=== PATIENT | female | born 1955 | race Caucasian/White ===

== ENCOUNTER 2019-11-15 22:51 | Inpatient (IN) | payer MEDICARE, BC ==
[2019-11-15] MEDS ORDERED: IPRATROPIUM-ALBUTEROL 3 ML NEB INHALATION STA (23:13)
[2019-11-15 23:24] LABS: Anisocytosis Slight; HCT 33.3 % (34.0-46.0); HGB 10.4 gm/dL (11.4-16.0); Hypochromasia Marked; MCH 38.8 pg (25.0-35.0); MCHC 31.1 g/dL (31.0-37.0); MCV 124.7 fL (80.0-100.0); Macrocytosis Marked; Platelet Count 135 k/uL (150-450); RBC 2.67 m/uL (3.80-5.40); RDW 19.9 % (11.5-15.5); WBC 3.4 k/uL (3.8-10.6)
[2019-11-15 23:33] LABS: ALT 14 U/L (4-34); AST 52 U/L (14-36); African American GFR (CKD) >90 (>60 ml/min/1.73 sqM); Albumin 3.5 g/dL (3.5-5.0); Alkaline Phosphatase 159 U/L (38-126); Anion Gap 8 mmol/L; Blood Urea Nitrogen 7 mg/dL (7-17); Calcium 8.9 mg/dL (8.4-10.2); Carbon Dioxide 25 mmol/L (22-30); Chloride 101 mmol/L (98-107); Glucose 146 mg/dL (74-99); Non-African American GFR(CKD) >90 (>60 ml/min/1.73 sqM); Potassium 3.8 mmol/L (3.5-5.1); Sodium 134 mmol/L (137-145); Total Bilirubin 4.6 mg/dL (0.2-1.3); Total Protein 7.5 g/dL (6.3-8.2)
[2019-11-15 23:34] LABS: INR 1.5 (<1.2); Partial Thromboplastin Time 30.1 sec (22.0-30.0)
--- NOTE | 2019-11-15 23:35 | XR ---
EXAMINATION TYPE: XR chest 2V DATE OF EXAM: 11/15/2019 COMPARISON: NONE HISTORY: Difficulty breathing TECHNIQUE: 2 views FINDINGS: There is complete opacification right hemithorax. Left lung is fairly clear. There is no he art failure. Trachea is midline. There is slight blunting left costophrenic angle. IMPRESSION: Right-sided hydrothorax. Small left pleural effusion. No heart failure seen.
[2019-11-15 23:38] LABS: D-Dimer 1.79 mg/L FEU (<0.60)
[2019-11-15 23:47] LABS: Band Neutrophils % 4 %; Eosinophils # (M) 0.07 k/uL (0-0.7); Lymphocytes # (M) 1.09 k/uL (1.0-4.8); Metamyelocytes % 3 %; Neutrophils % (M) 56 %; Nucleated Red Blood Cells 0 /100 WBC (0-0); Total Cells Counted 200
--- NOTE | 2019-11-16 00:22 | ED ---
SOB HPI - General Source: patient, EMS Mode of arrival: EMS Limitations: physical limitation <Bushra Azul - Last Filed: 11/16/19 02:29> <Kamilla Goddard - Last Filed: 11/17/19 04:52> - General Chief Complaint: Shortness of Breath Stated Complaint: PRINCESS Time Seen by Provider: 11/15/19 22:58 - History of Present Illness Initial Comments: 64 year-old female patient with past medical history significant for liver failure related to chronic alcohol abuse presents to the emergency department today for evaluation of shortness of breath. Patient states over the last 2 days she's had increase in shortness of breath. States it feels like she is not getting enough air. States she is also noticed increased swelling to the bilateral lower extremities and her abdomen. Patient states she generally does have ascites but her abdomen is bigger than usual. States she is having sharp stabbing pain to the left upper quadrant abdomen. Denies any pain in the chest. Denies cough or congestion. She denies any fever or chills with this. Patient states her last paracentesis was in 2014. She moved here from [place] 2 years ago. Does not currently follow with the primary care physician. She denies home O2. Denies history of COPD. States she quit smoking 5 years ago. Patient denies any recent rash, nausea, vomiting, diarrhea, constipation, back pain, numbness, tingling, dizziness, weakness, hematuria, dysuria, urinary urgency, urinary frequency, headache, visual changes, or any other complaints. (Bushra Azul) - Related Data Home Medications Medication Instructions Recorded Confirmed Ibuprofen [Advil] 200 mg PO DAILY PRN 11/16/19 11/16/19 traMADol HCL 50 mg PO HS PRN 11/16/19 11/16/19 Allergies Allergy/AdvReac Type Severity Reaction Status Date / Time No Known Allergies Allergy Verified 11/16/19 11:18 Review of Systems ROS Other: All systems not noted in ROS Statement are negative. <Bushra Azul - Last Filed: 11/16/19 02:29> ROS Other: All systems not noted in ROS Statement are negative. <Kamilla Goddard - Last Filed: 11/17/19 04:52> ROS Statement: Those systems with pertinent positive or pertinent negative responses have been documented in the HPI. Past Medical History Additional Past Medical History / Comment(s): cirrhosis of the liver 2014 History of Any Multi-Drug Resistant Organisms: None Reported Past Surgical History: Orthopedic Surgery Additional Past Surgical History / Comment(s): 2020 fx hip/femur Past Psychological History: No Psychological Hx Reported Smoking Status: Former smoker Past Alcohol Use History: Occasional Past Drug Use History: Marijuana <Bushra Azul M - Last Filed: 11/16/19 02:29> General Exam Limitations: physical limitation General appearance: alert, other (this is a well-developed, well-nourished adult female patient in mild respiratory distress. Vital signs upon presentation are temperature 98.5F, pulse 107, respirations 24, blood pressure 159/99, pulse ox 97% on room air.) Eye exam: Present: PERRL, EOMI, scleral icterus. Absent: conjunctival injection, periorbital swelling Respiratory exam: Present: respiratory distress (Mild), wheezes (The x-ray wheezing noted in the left posterior lung jimenez), accessory muscle use (Abdominal), decreased breath sounds (Right posterior lung field), other (Tachypnea). Absent: normal lung sounds bilaterally, rales, rhonchi, stridor Cardiovascular Exam: Present: normal rhythm, tachycardia, normal heart sounds. Absent: systolic murmur, diastolic murmur, rubs, gallop, clicks GI/Abdominal exam: Present: soft, distended (Ascitic abdomen), normal bowel sounds. Absent: tenderness, guarding, rebound, rigid Neurological exam: Present: alert, oriented X3, CN II-XII intact Psychiatric exam: Present: normal affect, normal mood Skin exam: Present: warm, dry, intact. Absent: normal color (Jaundice), rash <Bushra Azul M - Last Filed: 11/16/19 02:29> Course Vital Signs 11/15/19 11/15/19 11/15/19 22:53 22:58 23:00 Temperature 98.5 F Pulse Rate 107 H 108 H 109 H Pulse Rate [ Pulse Oximetery ] Respiratory 24 22 22 Rate Blood Pressure 159/99 159/99 159/99 O2 Sat by Pulse 97 97 97 Oximetry 11/15/19 11/15/19 11/15/19 23:30 23:32 23:36 Temperature Pulse Rate 106 H 110 H 104 H Pulse Rate [ Pulse Oximetery ] Respiratory 22 Rate Blood Pressure 158/82 O2 Sat by Pulse 95 Oximetry 11/16/19 11/16/19 11/16/19 00:00 00:30 01:00 Temperature Pulse Rate 110 H 109 H 111 H Pulse Rate [ Pulse Oximetery ] Respiratory 22 22 22 Rate Blood Pressure 144/117 152/81 165/57 O2 Sat by Pulse 95 95 95 Oximetry 11/16/19 02:00 Temperature Pulse Rate Pulse Rate [ 111 H Pulse Oximetery ] Respiratory 26 H Rate Blood Pressure O2 Sat by Pulse Oximetry Medical Decision Making - Lab Data Result diagrams: 11/15/19 23:12 11/15/19 23:12 - EKG Data -: EKG Interpreted by Me - Radiology Data Radiology results: report reviewed, image reviewed <Bushra Azul - Last Filed: 11/16/19 02:29> - Lab Data Result diagrams: 11/15/19 23:12 11/15/19 23:12 <Kamilla Goddard - Last Filed: 11/17/19 04:52> - Medical Decision Making 64 year-old patient with alcoholic liver failure last drink 3 months ago, presents to the emergency department for evaluation of shortness of breath for the last 2-3 days. Has cough congestion. Denies fever or chills. Physical examination did reveal diminished lung sounds on the right side, faint expiratory wheezing on the left. Abdomen was acidic and distended. No abdominal tenderness was noted. Did have lower extremity edema. Labs reviewed and did reveal White blood count account 3.4, hemoglobin 10.4, PT 15, INR 1.5, ETT 30.1, d-dimer 1.79, bilirubin 4.6, AST 52, alk phos 159. Negative troponin. BNP 540. Chest x-ray did reveal hydrothorax on the right side with complete opacification of the right lung. CT angiography of the chest was ordered as well as CT abdomen and pelvis. No pulmonary embolism was identified. Redemonstrated right hydrothorax with no pulmonary mass. CT abdomen and pelvis does reveal ascites. Also, multiple gallstones and dilated gallbladder consistent with cholecystitis. Patient has no RUQ pain or tenderness, no elevated wbc count, no fever. Cholecysitis is unlikely, but we will consult surgery for further evaluation. I did inform patient of the results. We will give a dose of lasix to try and make the patient more comfortable. IR was consulted for thoracentesis and paracentesis. Patient is agreeable with this plan. (Bushra Azul) Patient care was discussed with mid-level provider for [facility] who accepts the patient to their service further management of ascites and pleural effusion. Interventional radiology was consulted for thoracentesis and paracentesis. CT was read as possible tension however given the insidious onset and patient's stable vital signs I do not feel that she has any component of tension. (Kamilla Goddard) - Lab Data Lab Results 11/15/19 11/15/19 11/15/19 Range/Units 23:12 23:12 23:12 WBC 3.4 L (3.8-10.6) k/uL RBC 2.67 L (3.80-5.40) m/uL Hgb 10.4 L (11.4-16.0) gm/dL Hct 33.3 L (34.0-46.0) % MCV 124.7 H (80.0-100.0) fL MCH 38.8 H (25.0-35.0) pg MCHC 31.1 (31.0-37.0) g/dL RDW 19.9 H (11.5-15.5) % Plt Count 135 L (150-450) k/uL Neutrophils % (Manual) 56 % Band Neutrophils % 4 % Lymphocytes % (Manual) 32 % Monocytes % (Manual) 3 % Eosinophils % (Manual) 2 % Metamyelocytes % 3 % Neutrophils # (Manual) 2.00 (1.3-7.7) k/uL Lymphocytes # (Manual) 1.09 (1.0-4.8) k/uL Monocytes # (Manual) 0.10 (0-1.0) k/uL Eosinophils # (Manual) 0.07 (0-0.7) k/uL Metamyelocytes # (Man) 0.10 H (0) k/uL Nucleated RBCs 0 (0-0) /100 WBC Manual Slide Review Performed Hypochromasia Marked Anisocytosis Slight Macrocytosis Marked A PT 15.0 H (9.0-12.0) sec INR 1.5 H (<1.2) APTT 30.1 H (22.0-30.0) sec D-Dimer 1.79 H (<0.60) mg/L FEU Sodium 134 L (137-145) mmol/L Potassium 3.8 (3.5-5.1) mmol/L Chloride 101 (98-107) mmol/L Carbon Dioxide 25 (22-30) mmol/L Anion Gap 8 mmol/L BUN 7 (7-17) mg/dL Creatinine 0.47 L (0.52-1.04) mg/dL Est GFR (CKD-EPI)AfAm >90 (>60 ml/min/1.73 sqM) Est GFR (CKD-EPI)NonAf >90 (>60 ml/min/1.73 sqM) Glucose 146 H (74-99) mg/dL Plasma Lactic Acid Patrice (0.7-2.0) mmol/L Calcium 8.9 (8.4-10.2) mg/dL Total Bilirubin 4.6 H (0.2-1.3) mg/dL AST 52 H (14-36) U/L ALT 14 (4-34) U/L Alkaline Phosphatase 159 H (38-126) U/L Troponin I (0.000-0.034) ng/mL NT-Pro-B Natriuret Pep pg/mL Total Protein 7.5 (6.3-8.2) g/dL Albumin 3.5 (3.5-5.0) g/dL 11/15/19 11/15/19 11/15/19 Range/Units 23:12 23:12 23:12 WBC (3.8-10.6) k/uL RBC (3.80-5.40) m/uL Hgb (11.4-16.0) gm/dL Hct (34.0-46.0) % MCV (80.0-100.0) fL MCH (25.0-35.0) pg MCHC (31.0-37.0) g/dL RDW (11.5-15.5) % Plt Count (150-450) k/uL Neutrophils % (Manual) % Band Neutrophils % % Lymphocytes % (Manual) % Monocytes % (Manual) % Eosinophils % (Manual) % Metamyelocytes % % Neutrophils # (Manual) (1.3-7.7) k/uL Lymphocytes # (Manual) (1.0-4.8) k/uL Monocytes # (Manual) (0-1.0) k/uL Eosinophils # (Manual) (0-0.7) k/uL Metamyelocytes # (Man) (0) k/uL Nucleated RBCs (0-0) /100 WBC Manual Slide Review Hypochromasia Anisocytosis Macrocytosis PT (9.0-12.0) sec INR (<1.2) APTT (22.0-30.0) sec D-Dimer (<0.60) mg/L FEU Sodium (137-145) mmol/L Potassium (3.5-5.1) mmol/L Chloride (98-107) mmol/L Carbon Dioxide (22-30) mmol/L Anion Gap mmol/L BUN (7-17) mg/dL Creatinine (0.52-1.04) mg/dL Est GFR (CKD-EPI)AfAm (>60 ml/min/1.73 sqM) Est GFR (CKD-EPI)NonAf (>60 ml/min/1.73 sqM) Glucose (74-99) mg/dL Plasma Lactic Acid Patrice 2.0 (0.7-2.0) mmol/L Calcium (8.4-10.2) mg/dL Total Bilirubin (0.2-1.3) mg/dL AST (14-36) U/L ALT (4-34) U/L Alkaline Phosphatase (38-126) U/L Troponin I <0.012 (0.000-0.034) ng/mL NT-Pro-B Natriuret Pep 540 pg/mL Total Protein (6.3-8.2) g/dL Albumin (3.5-5.0) g/dL - EKG Data EKG Comments: EKG obtained at 2310 shows sinus tachycardia with a ventricular rate of 109, UT interval 160, QRS duration 106, QT 350, QTC 471. No evidence of ST elevation or depression. (Bushra Azul) - Radiology Data Two-view x-ray of the chest is obtained. Report was reviewed in its entirety. Impression by Dr. Castañeda shows right-sided hydrothorax. Small left pleural effusion. No heart failure seen. CT chest angiography for PE was obtained. Report was reviewed in its entirety. Impression by Dr. Castañeda shows no evidence of pulmonary embolism. There is right-sided hydrothorax with minimal tension. Shift of the heart is slightly to the left side. Complete atelectasis of the right lung. No pulmonary mass seen. Small left pleural effusion. Splenomegaly and cholelithiasis. CT abdomen and pelvis with contrast was obtained. Report is reviewed in its entirety. Impression by Dr. Castañeda shows right-sided hydrothorax. Moderate abdominal ascites. Sigmoid diverticulosis without diverticulitis. No pelvic mass seen. Uterine calcified fibroid. Splenomegaly. No dilated gallbladder with numerous gallstones suggestive of cholecystitis. (Bushra Azul) Disposition Decision to Admit Reason: Admit from EC Decision Date: 11/16/19 Decision Time: 01:22 <Bushra Azul - Last Filed: 11/16/19 02:29> <Kamilla Goddard - Last Filed: 11/17/19 04:52> Clinical Impression: Hydrothorax, Ascites, History of liver failure, Dyspnea Disposition: ADMITTED IP TO THIS [facility] Condition: Serious
--- NOTE | 2019-11-16 00:53 | CT ---
EXAMINATION TYPE: CT chest angio for PE DATE OF EXAM: 11/16/2019 COMPARISON: None HISTORY: Elevated D-dimer CT DLP: 518.10 mGycm Automated exposure control for dose reduction was used. CONTRAST: Performed with IV Contrast, patient injected with 100 mL of Isovue 370. There are 3-D post processed images. There is right-sided hydrothorax incomplete atelectasis of the right lung. The heart size is normal. There is no pericardial effusion. Heart shifted slightly to the left side. There is no pericardial ef fusion. Left lung is clear of consolidation. There is small left pleural effusion. I see no filling defects in the pulmonary arteries. The bony thorax is intact. There are multiple calcified gallstones. Spleen is enlarged and measures 16 cm. IMPRESSION: No evidence of pulmonary embolism. There is right-sided hydrothorax with minimal tension. Shift of th e heart slightly to the left side. Complete atelectasis of the right lung. No pulmonary mass seen. Sm all left pleural effusion. Splenomegaly and cholelithiasis.
--- NOTE | 2019-11-16 00:59 | CT ---
EXAMINATION TYPE: CT abdomen pelvis w con DATE OF EXAM: 11/16/2019 COMPARISON: None HISTORY: Elevated D-dimer CT DLP: 1659.10 mGycm Automated exposure control for dose reduction was used. CONTRAST: Performed with IV Contrast, patient injected with 100 mL of Isovue 370. Images obtained from the diaphragm to the floor the pelvis with IV contrast. There is right-sided hydrothorax. There is complete atelectasis right lung. There is moderate splenom egaly and the spleen measures 16 cm. There is no focal liver defect. There is numerous calcified gall stones. Gallbladder is dilated and measures 5.5 cm. There is abdominal ascites. There is no evidence of pancreatic mass. There is no adrenal mass. Kidneys show satisfactory contrast opacification. There is no hydronephrosi s. There is 4.5 cm cortical cyst lateral right kidney. Delayed images show normal renal excretion. Th ere is no retroperitoneal adenopathy. Abdominal aorta is atheromatous. There is umbilical hernia that contains fat and ascites fluid. There is 2 cm calcified uterine fundal fibroid. Bladder is intact. T here is no inguinal hernia. There is subcutaneous edema over the lower anterior abdomen. There is 10% compression of the superior endplate of L3 and L5. L3 fracture could be relatively acute. There is 5 % depression of superior endplate of L4. There is no evidence of a bowel obstruction. IMPRESSION: Right-sided hydrothorax. Moderate abdominal ascites. Sigmoid diverticulosis without diverticulitis. N o pelvic mass seen. Uterine calcified fibroid. Splenomegaly. Dilated gallbladder with numerous gallstones suggestive of cholecystitis.
[2019-11-16] MEDS ORDERED: NALOXONE 0.4 MG/ML 1 ML VIAL IV PRN (01:15)
[2019-11-16] MEDS ORDERED: FUROSEMIDE 10 MG/ML 4 ML VIAL IV STA (01:16)
[2019-11-16] MEDS ORDERED: IPRATROPIUM-ALBUTEROL 3 ML NEB INHALATION PRN (02:38)
[2019-11-16] MEDS: traMADol 50 MG TAB PO PRN ×2 (03:20→20:45)
--- NOTE | 2019-11-16 09:15 | P.CNPUL ---
History of Present Illness Consult date: 11/16/19 Reason for consult: dyspnea, pleural effusion History of present illness: 4-year-old female patient with known history of liver cirrhosis arrived from [place] in October 2019. The patient was expressing progressive worsening in shortness of breath and yesterday she came into the emergency department she had a complete white out of the right lung. This was consistent with a large right- sided pleural effusion. At The chest confirmed the finding and there was complete atelectasis of the right lung with massive amount of right-sided pleural effusion. The right-sided hydropneumothorax in addition to complete atelectasis of the right lung and there was moderate splenomegaly without any focal liver defect. There was numerous calcified gallstones. There was some minimal ascites also. No evidence of any pancreatic mass. Uterine fibroid was also seen. The patient is currently on oxygen at 4 L. She is a chronic smoker. She is also a chronic drinker and she has been trying to quit drinking. She has been an alcoholic for 30 years. She has made efforts to quit drinking, however she hasn't been absolutely successful and she is still drinks on and off right and she ultimately has not drank for around 3 months. She has chronic edema lower extremities. Does not take any form of diuretics. No history of encephalopathy. The patient has not several hepatitis. She has had a previous paracentesis back in 2014. Blood work shows some mild grade of pancytopenia, INR is at 1.5 and she has a normal renal function. Review of Systems Constitutional: Reports weight gain Eyes: denies as per HPI, denies blurred vision, denies bulging eye, denies decreased vision, denies diplopia, denies discharge, denies dry eye, denies irritation, denies itching, denies pain, denies photophobia, denies loss of peripheral vision, denies loss of vision, denies tunnel vision/blind spots Ears: deny: decreased hearing, ear discharge, earache, tinnitus Ears, nose, mouth and throat: Reports as per HPI Breasts: absent: as per HPI, change in shape, gynecomastia, masses, nipple discharge, pain, skin changes, swelling Cardiovascular: Reports decreased exercise tolerance, Reports dyspnea on exertion, Reports leg edema, Reports paroxysmal nocturnal dyspnea Respiratory: Reports dyspnea Gastrointestinal: Reports as per HPI Genitourinary: Reports as per HPI Menstruation: Reports as per HPI Musculoskeletal: Reports as per HPI Musculoskeletal: bilateral: ankle swelling, absent: ankle pain, ankle stiffness Integumentary: Reports as per HPI Neurological: Reports as per HPI Psychiatric: Reports as per HPI Endocrine: Reports as per HPI Hematologic/Lymphatic: Reports as per HPI Allergic/Immunologic: Reports as per HPI Past Medical History Additional Past Medical History / Comment(s): cirrhosis of the liver 2014 History of Any Multi-Drug Resistant Organisms: None Reported Past Surgical History: Orthopedic Surgery Additional Past Surgical History / Comment(s): 2019 fx hip/femur Past Anesthesia/Blood Transfusion Reactions: No Reported Reaction Past Psychological History: No Psychological Hx Reported Smoking Status: Former smoker Past Alcohol Use History: Occasional Additional Past Alcohol Use History / Comment(s): pt reported 4 glasses of wine a day. stopped drinking in 2014 but restarted in 2018. Last reported drink in august of 2019. Past Drug Use History: Marijuana - Past Family History Father Additional Family Medical History / Comment(s): pt stated her father had lymphoma. Medications and Allergies Home Medications Medication Instructions Recorded Confirmed Type traMADol HCL 50 mg PO Q6HR PRN 11/16/19 11/16/19 History Allergies Allergy/AdvReac Type Severity Reaction Status Date / Time No Known Allergies Allergy Verified 11/15/19 23:18 Physical Exam Vitals: Vital Signs Temp Pulse Pulse Resp BP BP BP 11/16/19 07:46 98.2 F 98 18 120/63 11/16/19 04:00 97.5 F L 119 H 22 139/67 11/16/19 02:56 120 H 11/16/19 02:51 118 H 11/16/19 02:27 98.3 F 111 H 26 H 163/85 11/16/19 02:00 111 H 26 H 11/16/19 01:00 111 H 22 165/57 11/16/19 00:30 109 H 22 152/81 11/16/19 00:00 110 H 22 144/117 11/15/19 23:36 104 H 11/15/19 23:32 110 H 11/15/19 23:30 106 H 22 158/82 11/15/19 23:00 109 H 22 159/99 11/15/19 22:58 108 H 22 159/99 11/15/19 22:53 98.5 F 107 H 24 159/99 Pulse Ox 11/16/19 07:46 98 11/16/19 04:00 93 L 11/16/19 02:56 11/16/19 02:51 11/16/19 02:27 93 L 11/16/19 02:00 11/16/19 01:00 95 11/16/19 00:30 95 11/16/19 00:00 95 11/15/19 23:36 11/15/19 23:32 11/15/19 23:30 95 11/15/19 23:00 97 11/15/19 22:58 97 11/15/19 22:53 97 Intake and Output 11/15/19 11/16/19 11/16/19 22:59 06:59 14:59 Output Total 2600 Balance -2600 Output: Urine 2600 Other: Voiding Method Indwelling Catheter Indwelling Catheter Weight 90.718 kg 54.9 kg Gen. appearance, comfortable not in acute distress on 4l by nasal cannula Head exam was generally normal. There was no scleral icterus or corneal arcus. Mucous membranes were moist. Neck was supple and without jugular venous distension, thyromegaly, or carotid bruits. Carotids were easily palpable bilaterally. There was no adenopathy. Lungs sounds are diminished in the right compared to the left and there is dullness to percussion. Cardiac exam revealed the PMI to be normally situated and sized. The rhythm was regular and no extrasystoles were noted during several minutes of auscultation. The first and second heart sounds were normal and physiologic splitting of the second heart sound was noted. There were no murmurs, rubs, clicks, or gallops. Abdomen slightly distended and the patient has an aside this with a fluid wave he had no significant tenderness. No rebound tenderness. No guarding. She has a umbilical hernia Extremities revealed +1 pitting edema. No cyanosis or clubbing. Neurologically awake and alert and is no focal neurological deficit or encephalopathy. Examination of the skin revealed no evidence of significant rashes, suspicious appearing nevi or other concerning lesions. Results - Laboratory Findings CBC and BMP: 11/15/19 23:12 11/15/19 23:12 PT/INR, D-dimer PT 15.0 sec (9.0-12.0) H 11/15/19 23:12 INR 1.5 (<1.2) H 11/15/19 23:12 D-Dimer 1.79 mg/L FEU (<0.60) H 11/15/19 23:12 Abnormal lab findings: Abnormal Labs 11/15/19 11/15/19 11/15/19 23:12 23:12 23:12 WBC 3.4 L RBC 2.67 L Hgb 10.4 L Hct 33.3 L MCV 124.7 H MCH 38.8 H RDW 19.9 H Plt Count 135 L Metamyelocytes # (Man) 0.10 H Macrocytosis Marked A PT 15.0 H INR 1.5 H APTT 30.1 H D-Dimer 1.79 H Sodium 134 L Creatinine 0.47 L Glucose 146 H Total Bilirubin 4.6 H AST 52 H Alkaline Phosphatase 159 H - Diagnostic Findings Chest x-ray: image reviewed CT scan - chest: image reviewed Assessment and Plan Plan: 1 complete atelectasis of the right lung secondary to a massive large right- sided pleural effusion, suspect hepatic hydrothorax 2 liver cirrhosis 3 small ascites 4 pancytopenia secondary to chronic liver disease 5 coagulopathy secondary to chronic liver disease 6 splenomegaly secondary to chronic liver disease 7 history of alcoholism 8 history of smoking 9 uncomplicated diverticulosis Plan We'll proceed with a therapeutic thoracentesis of the right lung. The patient has massive amount of pleural fluid for now. We'll try to drain at least a 3 L of fluid and we'll may need to repeat the thoracentesis. Unable to do more than 3 L as the patient may likely become symptomatic following the thoracentesis. Based on all this, would proceed with a thoracentesis for now I will put the patient on diuretics and we'll consult also with GI regarding her chronic liver disease. No signs of hepatic encephalopathy. The patient was started on Lasix 40 mg IV every 24 hours and Aldactone 25 mg by mouth daily. The fluid will be sent for analysis. Chest x-rays to follow. We'll continue to follow.
--- NOTE | 2019-11-16 09:20 | P.PCN ---
Date of Procedure: 11/16/19 Preoperative Diagnosis: Right sided hydrothorax Postoperative Diagnosis: Hepatic hydrothorax Procedure(s) Performed: Thoracentesis Anesthesia: local Surgeon: Margareth Ledesma Estimated Blood Loss (ml): 0 Pathology: other Condition: stable Disposition: floor Operative Findings: Consent was obtained from the patient prior to the procedure. Indications, risks, and benefits were explained at length. PROCEDURE SUMMARY: A time out was performed and the chest x-ray was reviewed, the appropriate side was confirmed and marked. My hands were washed immediately prior to the procedure. I wore a surgical cap, mask with protective eyewear, sterile gown and sterile gloves throughout the procedure. The patient was prepped and draped in a sterile manner using chlorhexidine scrub after the appropriate level was percussed and confirmed by ultrasound. 1% lidocaine was used to anesthesize the skin, subcutaneous tissue, superior aspect of the rib periosteum and parietal pleura. A finder needle was then introduced over the superior aspect of the rib to locate the pleural fluid; A 10-blade scalpel was used to lottie the skin at the insertion site. The [id number] needle was then introduced through the skin incision into the pleural space using negative aspiration pressure and the red colometric indicator to confirm appropriate positioning of the needle. The thoracentesis catheter was then threaded without difficulty. A total of 3.6 liters of turbid yellowish colored fluid was removed without difficulty. The catheter was then removed. No immediate complications were noted during the procedure. A post-procedure chest x-ray is pending at the time of this note. The fluid will be sent for studies. Estimated blood loss is 0cc
--- NOTE | 2019-11-16 09:47 | XR ---
EXAMINATION TYPE: XR chest 1V DATE OF EXAM: 11/16/2019 HISTORY: post thoracentesis. REFERENCE: Previous study dated 11/15/2019. FINDINGS: There is been a marked reduction in the amount of right-sided pleural fluid following thora centesis. No definite pneumothorax is seen. The left lung remains clear. Heart size is largely obscur ed. IMPRESSION: 1. SIGNIFICANT IMPROVEMENT IN THE AMOUNT OF RIGHT-SIDED PLEURAL FLUID. 2. I DO NOT SEE A POSTTHORACENTESIS COMPLICATION.
--- NOTE | 2019-11-16 10:48 | P.GSCN ---
History of Present Illness Consult date: 11/16/19 Reason for Consult: Cholelithiasis History of present illness: 64 row female with history of alcohol-induced liver failure. Presents complaini ng of shortness of breath. Says she was told she had liver problems 5 years ago. She had paracentesis done at that time. Stop drinking for approximate 4 years. Began drinking again about 1 year ago. No history of varices. Patient with evidence of leukopenia with white blood cell count 3.4, hemoglobin 10.4, INR 1.5. Bilirubin elevated at 4.6. Patient describes swelling in her lower extremities and her abdomen as well. Underwent thoracentesis today. She described in the ER stabbing pain left upper quadrant. Denies pain currently. CAT scan demonstrated gallstones. We were consulted for this reason. Denies right upper quadrant pain. Never had issues with her gallbladder before she states. Review of Systems The patient denies any acute changes in vision or hearing, no dysphagia or odynophagia, no chest pain, no dysuria or hematuria, no headache, no runny nose, no rectal bleeding or melena, no unexplained weight loss Past Medical History Additional Past Medical History / Comment(s): cirrhosis of the liver 2014 History of Any Multi-Drug Resistant Organisms: None Reported Past Surgical History: Orthopedic Surgery Additional Past Surgical History / Comment(s): 2019 fx hip/femur Past Anesthesia/Blood Transfusion Reactions: No Reported Reaction Past Psychological History: No Psychological Hx Reported Smoking Status: Former smoker Past Alcohol Use History: Occasional Additional Past Alcohol Use History / Comment(s): pt reported 4 glasses of wine a day. stopped drinking in 2014 but restarted in 2018. Last reported drink in august of 2019. Past Drug Use History: Marijuana - Past Family History Father Additional Family Medical History / Comment(s): pt stated her father had lymphoma. Medications and Allergies Home Medications Medication Instructions Recorded Confirmed Type traMADol HCL 50 mg PO Q6HR PRN 11/16/19 11/16/19 History Allergies Allergy/AdvReac Type Severity Reaction Status Date / Time No Known Allergies Allergy Verified 11/15/19 23:18 Surgical - Exam Vital Signs Temp Pulse Resp BP Pulse Ox 98.5 F 107 H 24 159/99 97 11/15/19 22:53 11/15/19 22:53 11/15/19 22:53 11/15/19 22:53 11/15/19 22:53 Physical exam: General: Well-developed, well-nourished HEENT: Normocephalic, sclerae icteric Abdomen: Nontender, mild distention Extremities: Mild edema Neuro: Alert and oriented Results - Labs 11/15/19 23:12 11/15/19 23:12 Abnormal Lab Results - Last 24 Hours (Table) 11/15/19 11/15/19 11/15/19 Range/Units 23:12 23:12 23:12 WBC 3.4 L (3.8-10.6) k/uL RBC 2.67 L (3.80-5.40) m/uL Hgb 10.4 L (11.4-16.0) gm/dL Hct 33.3 L (34.0-46.0) % MCV 124.7 H (80.0-100.0) fL MCH 38.8 H (25.0-35.0) pg RDW 19.9 H (11.5-15.5) % Plt Count 135 L (150-450) k/uL Metamyelocytes # (Man) 0.10 H (0) k/uL Macrocytosis Marked A PT 15.0 H (9.0-12.0) sec INR 1.5 H (<1.2) APTT 30.1 H (22.0-30.0) sec D-Dimer 1.79 H (<0.60) mg/L FEU Sodium 134 L (137-145) mmol/L Creatinine 0.47 L (0.52-1.04) mg/dL Glucose 146 H (74-99) mg/dL Total Bilirubin 4.6 H (0.2-1.3) mg/dL AST 52 H (14-36) U/L Alkaline Phosphatase 159 H (38-126) U/L Diabetes panel 11/15/19 Range/Units 23:12 Sodium 134 L (137-145) mmol/L Potassium 3.8 (3.5-5.1) mmol/L Chloride 101 (98-107) mmol/L Carbon Dioxide 25 (22-30) mmol/L BUN 7 (7-17) mg/dL Creatinine 0.47 L (0.52-1.04) mg/dL Glucose 146 H (74-99) mg/dL Calcium 8.9 (8.4-10.2) mg/dL AST 52 H (14-36) U/L ALT 14 (4-34) U/L Alkaline Phosphatase 159 H (38-126) U/L Total Protein 7.5 (6.3-8.2) g/dL Albumin 3.5 (3.5-5.0) g/dL Calcium panel 11/15/19 Range/Units 23:12 Calcium 8.9 (8.4-10.2) mg/dL Albumin 3.5 (3.5-5.0) g/dL Pituitary panel 11/15/19 Range/Units 23:12 Sodium 134 L (137-145) mmol/L Potassium 3.8 (3.5-5.1) mmol/L Chloride 101 (98-107) mmol/L Carbon Dioxide 25 (22-30) mmol/L BUN 7 (7-17) mg/dL Creatinine 0.47 L (0.52-1.04) mg/dL Glucose 146 H (74-99) mg/dL Calcium 8.9 (8.4-10.2) mg/dL Adrenal panel 11/15/19 Range/Units 23:12 Sodium 134 L (137-145) mmol/L Potassium 3.8 (3.5-5.1) mmol/L Chloride 101 (98-107) mmol/L Carbon Dioxide 25 (22-30) mmol/L BUN 7 (7-17) mg/dL Creatinine 0.47 L (0.52-1.04) mg/dL Glucose 146 H (74-99) mg/dL Calcium 8.9 (8.4-10.2) mg/dL Total Bilirubin 4.6 H (0.2-1.3) mg/dL AST 52 H (14-36) U/L ALT 14 (4-34) U/L Alkaline Phosphatase 159 H (38-126) U/L Total Protein 7.5 (6.3-8.2) g/dL Albumin 3.5 (3.5-5.0) g/dL Assessment and Plan (1) Cholelithiasis Narrative/Plan: 64-year-old female with liver failure. Incidental findings of gallstones. These appear to be asymptomatic at this time. Plans for paracentesis apparently underway for tomorrow. We'll follow with you. Current Visit: Yes Status: Acute Code(s): K80.20 - CALCULUS OF GALLBLADDER W/O CHOLECYSTITIS W/O OBSTRUCTION SNOMED Code(s): 473997487
[2019-11-16] MEDS: SPIRONOLACTONE 25 MG TAB PO SCH (10:49)
[2019-11-16] MEDS ORDERED: ONDANSETRON 4 MG/2 ML VIAL IVP PRN (10:56)
--- NOTE | 2019-11-16 11:39 | P.HPIM ---
History of Present Illness 64-year-old very pleasant female with known history of cirrhosis from alcoholism acute complaints of shortness of breath found to have complete whiteout of the right lung and pleural effusion on the right side. Patient has atelectasis because of large pleural effusion. Patient also has numerous gallstones and ascites. Patient is presently on 4 L which we are cutting it down now patient underwent emergent thoracentesis with removal of around 3.5 L of clear fluid.. Patient quit alcohol and smoking in 2014. Patient is feeling much better now patient will also undergo paracentesis by interventional radiology does have lower extremity edema bilaterally patient any fever chills cough denied any abdominal pain diarrhea dysuria Review of Systems REVIEW OF SYSTEMS: CONSTITUTIONAL: No fever, no malaise, no fatigue. HEENT: No recent visual problems or hearing problems. Denied any sore throat. CARDIOVASCULAR: No chest pain, orthopnea, PND, no palpitations, no syncope. PULMONARY: no cough, no hemoptysis. GASTROINTESTINAL: No diarrhea, no vomiting, no abdominal pain. NEUROLOGICAL: No headaches, no weakness, no numbness. HEMATOLOGICAL: Denies any bleeding or petechiae. GENITOURINARY: Denies any burning micturition, frequency, or urgency. MUSCULOSKELETAL/RHEUMATOLOGICAL: Denies any joint pain, swelling, or any muscle pain. ENDOCRINE: Denies any polyuria or polydipsia. The rest of the 14-point review of systems is negative. Past Medical History Additional Past Medical History / Comment(s): cirrhosis of the liver 2014 History of Any Multi-Drug Resistant Organisms: None Reported Past Surgical History: Orthopedic Surgery Additional Past Surgical History / Comment(s): 2019 fx hip/femur Past Anesthesia/Blood Transfusion Reactions: No Reported Reaction Past Psychological History: No Psychological Hx Reported Smoking Status: Former smoker Past Alcohol Use History: Occasional Additional Past Alcohol Use History / Comment(s): pt reported 4 glasses of wine a day. stopped drinking in 2014 but restarted in 2018. Last reported drink in august of 2019. Past Drug Use History: Marijuana - Past Family History Father Additional Family Medical History / Comment(s): pt stated her father had lymphoma. Medications and Allergies Home Medications Medication Instructions Recorded Confirmed Type Ibuprofen [Advil] 200 mg PO DAILY PRN 11/16/19 11/16/19 History traMADol HCL 50 mg PO HS PRN 11/16/19 11/16/19 History Allergies Allergy/AdvReac Type Severity Reaction Status Date / Time No Known Allergies Allergy Verified 11/16/19 11:18 Physical Exam Vitals: Vital Signs Temp Pulse Pulse Resp BP BP BP 11/16/19 10:11 95 109/59 11/16/19 09:53 94 18 112/60 11/16/19 09:30 106 H 18 113/59 11/16/19 07:46 98.2 F 98 18 120/63 11/16/19 04:00 97.5 F L 119 H 22 139/67 11/16/19 02:56 120 H 11/16/19 02:51 118 H 11/16/19 02:27 98.3 F 111 H 26 H 163/85 11/16/19 02:00 111 H 26 H 11/16/19 01:00 111 H 22 165/57 11/16/19 00:30 109 H 22 152/81 11/16/19 00:00 110 H 22 144/117 11/15/19 23:36 104 H 11/15/19 23:32 110 H 11/15/19 23:30 106 H 22 158/82 11/15/19 23:00 109 H 22 159/99 11/15/19 22:58 108 H 22 159/99 11/15/19 22:53 98.5 F 107 H 24 159/99 Pulse Ox 11/16/19 10:11 97 11/16/19 09:53 92 L 11/16/19 09:30 94 L 11/16/19 07:46 98 11/16/19 04:00 93 L 11/16/19 02:56 11/16/19 02:51 11/16/19 02:27 93 L 11/16/19 02:00 11/16/19 01:00 95 11/16/19 00:30 95 11/16/19 00:00 95 11/15/19 23:36 11/15/19 23:32 11/15/19 23:30 95 11/15/19 23:00 97 11/15/19 22:58 97 11/15/19 22:53 97 Intake and Output 11/15/19 11/16/19 11/16/19 22:59 06:59 14:59 Output Total 2600 Balance -2600 Output: Urine 2600 Other: Voiding Method Indwelling Catheter Indwelling Catheter Weight 90.718 kg 54.9 kg PHYSICAL EXAMINATION: GENERAL: The patient is alert and oriented x3, not in any acute distress. Well developed, well nourished. HEENT: Pupils are round and equally reacting to light. EOMI. No scleral icterus. No conjunctival pallor. Normocephalic, atraumatic. No pharyngeal erythema. No thyromegaly. CARDIOVASCULAR: S1 and S2 present. No murmurs, rubs, or gallops. PULMONARY: Decreased air entry into bilateral lung jimenez ABDOMEN: Soft, distended with shifting dullness and ascites, normoactive bowel sounds. No palpable organomegaly. MUSCULOSKELETAL: No joint swelling or deformity. EXTREMITIES: No cyanosis, clubbing, does have some pedal edema NEUROLOGICAL: Gross neurological examination did not reveal any focal deficits. SKIN: No rashes. Results CBC & Chem 7: 11/15/19 23:12 11/15/19 23:12 Labs: Abnormal Lab Results - Last 24 Hours (Table) 11/15/19 11/15/19 11/15/19 Range/Units 23:12 23:12 23:12 WBC 3.4 L (3.8-10.6) k/uL RBC 2.67 L (3.80-5.40) m/uL Hgb 10.4 L (11.4-16.0) gm/dL Hct 33.3 L (34.0-46.0) % MCV 124.7 H (80.0-100.0) fL MCH 38.8 H (25.0-35.0) pg RDW 19.9 H (11.5-15.5) % Plt Count 135 L (150-450) k/uL Metamyelocytes # (Man) 0.10 H (0) k/uL Macrocytosis Marked A PT 15.0 H (9.0-12.0) sec INR 1.5 H (<1.2) APTT 30.1 H (22.0-30.0) sec D-Dimer 1.79 H (<0.60) mg/L FEU Sodium 134 L (137-145) mmol/L Creatinine 0.47 L (0.52-1.04) mg/dL Glucose 146 H (74-99) mg/dL Total Bilirubin 4.6 H (0.2-1.3) mg/dL AST 52 H (14-36) U/L Alkaline Phosphatase 159 H (38-126) U/L Thrombosis Risk Factor Assmnt - Choose All That Apply Each Factor Represents 1 point: Swollen legs (current) Other Risk Factors: Yes Each Risk Factor Represents 2 Points: Age 61-74 years Thrombosis Risk Factor Assessment Total Risk Factor Score: 3 Thrombosis Risk Factor Assessment Level: Moderate Risk Assessment and Plan Plan: -Shortness of breath: Secondary to pleural effusion. Patient is status post thoracentesis and removal of 3.5 L. Patient was started on IV Lasix which I'll increase to twice a day -Ascites secondary to cirrhosis: IV Lasix and Aldactone will be continued -Pancytopenia secondary to liver disease Coagulopathy with elevated INR secondary to liver disease -GI prophylaxis with Pepcid
[2019-11-16] MEDS ORDERED: PHYTONADIONE 5 MG in SODIUM CHLORIDE 0.9% 50 ML IVPB ONE (12:00)
[2019-11-16 12:14] LABS: Appearance,BF Clear; Color,BF Yellow
[2019-11-16 13:08] LABS: Nucleated Cells, Body Fluid 55 /uL; RBC, Body Fluid 50 /uL
[2019-11-16 13:22] LABS: Mononuclear WBC,Body Fluid 92 %; Polynuclear WBC,Body Fluid 8 %; Total Cells Counted,Body Fluid 100
[2019-11-16] MEDS: FUROSEMIDE 10 MG/ML 4 ML VIAL IV SCH (20:44)
[2019-11-16] MEDS: FAMOTIDINE 20 MG TAB PO SCH (20:44)
[2019-11-17 06:31] LABS: INR 1.4 (<1.2); Prothrombin Time 14.2 sec (9.0-12.0)
[2019-11-17] MEDS ORDERED: FUROSEMIDE 10 MG/ML 4 ML VIAL IV SCH (09:00)
[2019-11-17] MEDS: FAMOTIDINE 20 MG TAB PO SCH ×2 (09:03→21:00)
[2019-11-17] MEDS: SPIRONOLACTONE 25 MG TAB PO SCH (09:03)
[2019-11-17] MEDS: FUROSEMIDE 10 MG/ML 4 ML VIAL IV SCH ×2 (09:03→21:00)
--- NOTE | 2019-11-17 10:09 | P.PN ---
<Savanah Marks - Last Filed: 11/17/19 10:06> Subjective Progress Note Date: 11/17/19 CHIEF COMPLAINT: Cholelithiasis HISTORY OF PRESENT ILLNESS: Patient examined this morning at the bedside. She denies abdominal pain. She reports abdominal fullness. She is hoping to have a paracentesis performed today. PHYSICAL EXAM: VITAL SIGNS: Reviewed. GENERAL: Well-developed in no acute distress. HEENT: Bilateral sclera icterus. Extraocular movements grossly intact. Moist buccal mucosa. Head is atraumatic, normocephalic. ABDOMEN: Soft. Distended. Nontender. NEUROLOGIC: Alert and oriented. Cranial nerves II through XII grossly intact. ASSESSMENT: 1. Cholelithiasis 2. History of liver disease secondary to alcohol abuse PLAN: Patient remains asymptomatic in regards to her gallstones. No surgical in tervention recommended. Continue diet as tolerated. Possible paracentesis today. Nurse practitioner note has been reviewed by physician. Signing provider agrees with the documented findings, assessment, and plan of care. Objective - Vital Signs Vital signs: Vital Signs Temp 97.6 F 11/17/19 09:17 Pulse 96 11/17/19 09:17 Resp 18 11/17/19 09:17 BP 110/64 11/17/19 09:17 Pulse Ox 98 11/17/19 09:17 Intake & Output 11/16/19 11/17/19 11/17/19 18:59 06:59 18:59 Intake Total 460 118 Output Total 500 2400 Balance -40 -2400 118 Weight 91 kg 88.5 kg Intake: Intake, IV Titration 100 Amount Phytonadione 5 mg In 100 Sodium Chloride 0.9% 50 ml @ 100 mls/hr IVPB ONCE ONE Rx#:[id number] Oral 360 118 Output: Urine 500 2400 Uretheral ([place]) 900 Other: Voiding Method Indwelling Catheter Indwelling Catheter Indwelling Catheter # Voids 1 - Labs CBC & Chem 7: 11/15/19 23:12 11/15/19 23:12 Labs: Abnormal Lab Results - Last 24 Hours (Table) 11/17/19 Range/Units 05:43 PT 14.2 H (9.0-12.0) sec INR 1.4 H (<1.2) Microbiology - Last 24 Hours (Table) 11/16/19 09:30 Gram Stain - Preliminary Pleural Fluid Body Fluid Culture - Preliminary <Marco Antonio Lemus - Last Filed: 11/17/19 14:53> Subjective As above. Patient denies abdominal pain. Paracentesis was held given lack of significant volume. Continue diet as tolerated. We'll sign off. Call if needed. Objective - Vital Signs Vital signs: Vital Signs Temp 97.3 F L 11/17/19 12:20 Pulse 91 11/17/19 12:20 Resp 18 11/17/19 12:20 BP 116/65 11/17/19 12:20 Pulse Ox 96 11/17/19 12:20 Intake & Output 11/16/19 11/17/19 11/17/19 18:59 06:59 18:59 Intake Total 460 458 Output Total 500 2400 900 Balance -40 -2400 -442 Weight 91 kg 88.5 kg Intake: Intake, IV Titration 100 Amount Phytonadione 5 mg In 100 Sodium Chloride 0.9% 50 ml @ 100 mls/hr IVPB ONCE ONE Rx#:[id number] Oral 360 458 Output: Urine 500 2400 900 Uretheral ([place]) 900 900 Other: Voiding Method Indwelling Catheter Indwelling Catheter Indwelling Catheter # Voids 1 - Labs CBC & Chem 7: 11/15/19 23:12 11/17/19 05:53 Labs: Abnormal Lab Results - Last 24 Hours (Table) 11/17/19 11/17/19 Range/Units 05:43 05:53 PT 14.2 H (9.0-12.0) sec INR 1.4 H (<1.2) Sodium 135 L (137-145) mmol/L Glucose 118 H (74-99) mg/dL Total Bilirubin 3.5 H (0.2-1.3) mg/dL AST 46 H (14-36) U/L Total Protein 6.2 L (6.3-8.2) g/dL Albumin 2.7 L (3.5-5.0) g/dL Microbiology - Last 24 Hours (Table) 11/16/19 09:30 Gram Stain - Preliminary Pleural Fluid Body Fluid Culture - Preliminary Assessment and Plan (1) Cholelithiasis Current Visit: Yes Status: Acute Code(s): K80.20 - CALCULUS OF GALLBLADDER W/O CHOLECYSTITIS W/O OBSTRUCTION SNOMED Code(s): 006393644
--- NOTE | 2019-11-17 11:23 | US ---
Ultrasound-guided paracentesis. DATE OF EXAM: 11/17/2019 CLINICAL HISTORY: Ascites Preliminary imaging demonstrated no sizable collection for percutaneous drainage. IMPRESSION: No sizable collection for safe percutaneous drainage..
[2019-11-17 12:19] LABS: ALT 12 U/L (4-34); AST 46 U/L (14-36); African American GFR (CKD) >90 (>60 ml/min/1.73 sqM); Albumin 2.7 g/dL (3.5-5.0); Alkaline Phosphatase 122 U/L (38-126); Anion Gap 6 mmol/L; Blood Urea Nitrogen 7 mg/dL (7-17); Calcium 8.5 mg/dL (8.4-10.2); Carbon Dioxide 28 mmol/L (22-30); Chloride 101 mmol/L (98-107); Glucose 118 mg/dL (74-99); Non-African American GFR(CKD) >90 (>60 ml/min/1.73 sqM); Potassium 3.7 mmol/L (3.5-5.1); Sodium 135 mmol/L (137-145); Total Bilirubin 3.5 mg/dL (0.2-1.3); Total Protein 6.2 g/dL (6.3-8.2)
--- NOTE | 2019-11-17 14:16 | P.PN ---
Subjective 64-year-old very pleasant female with known history of cirrhosis from alcoholism acute complaints of shortness of breath found to have complete whiteout of the right lung and pleural effusion on the right side. Patient has atelectasis because of large pleural effusion. Patient also has numerous gallstones and ascites. Patient is presently on 4 L which we are cutting it down now patient underwent emergent thoracentesis with removal of around 3.5 L of clear fluid.. Patient quit alcohol and smoking in 2014. Patient is feeling much better now patient will also undergo paracentesis by interventional radiology does have lower extremity edema bilaterally 11/17/2019 Patient patient did go for interventional radiology guided paracentesis not much fluid was drained. Patient remains in 3-7000 which will taper down repeat a chest x-ray tomorrow may need thoracentesis again tomorrow. Continue with diuretic therapy. Constitutional: Denied any fatigue denied any fever. Cardio vascular: denied any chest pain, palpitations Gastrointestinal denied any nausea vomiting Pulmonary: Denied any shortness of breath cough Neurologic denied any new focal deficits All inpatient medications were reviewed and appropriate changes in these medications as dictated in the interval history and assessment and plan. Objective - Vital Signs Vital signs: Vital Signs Temp 97.3 F L 11/17/19 12:20 Pulse 91 11/17/19 12:20 Resp 18 11/17/19 12:20 BP 116/65 11/17/19 12:20 Pulse Ox 96 11/17/19 12:20 Intake & Output 11/16/19 11/17/19 11/17/19 18:59 06:59 18:59 Intake Total 460 118 Output Total 500 2400 900 Balance -40 -3900 -782 Weight 91 kg 88.5 kg Intake: Intake, IV Titration 100 Amount Phytonadione 5 mg In 100 Sodium Chloride 0.9% 50 ml @ 100 mls/hr IVPB ONCE ONE Rx#:[id number] Oral 360 118 Output: Urine 500 2400 900 Uretheral ([place]) 900 900 Other: Voiding Method Indwelling Catheter Indwelling Catheter Indwelling Catheter # Voids 1 - Exam PHYSICAL EXAMINATION: GENERAL: The patient is alert and oriented x3, not in any acute distress. Well developed, well nourished. HEENT: Pupils are round and equally reacting to light. EOMI. No scleral icterus. No conjunctival pallor. Normocephalic, atraumatic. No pharyngeal erythema. No thyromegaly. CARDIOVASCULAR: S1 and S2 present. No murmurs, rubs, or gallops. PULMONARY: Decreased air entry into bilateral lung jimenez ABDOMEN: Soft, distended with shifting dullness and ascites, normoactive bowel sounds. No palpable organomegaly. MUSCULOSKELETAL: No joint swelling or deformity. EXTREMITIES: No cyanosis, clubbing, does have some pedal edema NEUROLOGICAL: Gross neurological examination did not reveal any focal deficits. SKIN: No rashes. - Labs CBC & Chem 7: 11/15/19 23:12 11/17/19 05:53 Labs: Abnormal Lab Results - Last 24 Hours (Table) 11/17/19 11/17/19 Range/Units 05:43 05:53 PT 14.2 H (9.0-12.0) sec INR 1.4 H (<1.2) Sodium 135 L (137-145) mmol/L Glucose 118 H (74-99) mg/dL Total Bilirubin 3.5 H (0.2-1.3) mg/dL AST 46 H (14-36) U/L Total Protein 6.2 L (6.3-8.2) g/dL Albumin 2.7 L (3.5-5.0) g/dL Microbiology - Last 24 Hours (Table) 11/16/19 09:30 Gram Stain - Preliminary Pleural Fluid Body Fluid Culture - Preliminary Assessment and Plan Plan: -Shortness of breath, acute respiratory failure: Secondary to pleural effusion. Patient is status post thoracentesis and removal of 3.5 L. patient was admitted on IV Lasix twice a day along with Aldactone. -Ascites secondary to cirrhosis: IV Lasix and Aldactone will be continued, patient did undergo some greater paracentesis not much fluid was obtained during this procedure. -Pancytopenia secondary to liver disease Coagulopathy with elevated INR secondary to liver disease -GI prophylaxis with Pepcid
--- NOTE | 2019-11-17 14:19 | P.PN ---
Subjective Progress Note Date: 11/17/19 Principal diagnosis: dyspnea, large pleural effusion 4-year-old female patient with known history of liver cirrhosis arrived from [place] in October 2019. The patient was expressing progressive worsening in shortness of breath and yesterday she came into the emergency department she had a complete white out of the right lung. This was consistent with a large right- sided pleural effusion. At The chest confirmed the finding and there was complete atelectasis of the right lung with massive amount of right-sided pleural effusion. The right-sided hydropneumothorax in addition to complete atelectasis of the right lung and there was moderate splenomegaly without any focal liver defect. There was numerous calcified gallstones. There was some minimal ascites also. No evidence of any pancreatic mass. Uterine fibroid was also seen. The patient is currently on oxygen at 4 L. She is a chronic smoker. She is also a chronic drinker and she has been trying to quit drinking. She has been an alcoholic for 30 years. She has made efforts to quit drinking, however she hasn't been absolutely successful and she is still drinks on and off right and she ultimately has not drank for around 3 months. She has chronic edema lower extremities. Does not take any form of diuretics. No history of encephalopathy. The patient has not several hepatitis. She has had a previous paracentesis back in 2014. Blood work shows some mild grade of pancytopenia, INR is at 1.5 and she has a normal renal function. On patient seen in follow-up on selective care unit. She is resting comfortably in bed, breathing appears to be quite comfortable, she is status post right-sided thoracentesis, would removal of 3.6 L of turbid yellow- colored fluid. tolerated procedure well, follow-up chest x-ray showed significant improvement in the amount of right-sided pleural fluid, and no evidence of pneumothorax. cultures of the pleural fluid are negative thus far, Gram stain showed no organisms.patient has had no fever or chills, she is scheduled for paracentesis today, denies any abdominal pain, she is on IV Lasix of 40 mg twice daily. and she is in -2.4 L over the last 24 hours, INR today is 1.4, patient received a dose of vitamin K Objective - Vital Signs Vital signs: Vital Signs Temp 97.3 F L 11/17/19 12:20 Pulse 91 11/17/19 12:20 Resp 18 11/17/19 12:20 BP 116/65 11/17/19 12:20 Pulse Ox 96 11/17/19 12:20 Intake & Output 11/16/19 11/17/19 11/17/19 18:59 06:59 18:59 Intake Total 460 118 Output Total 500 2400 900 Balance -40 -5590 -782 Weight 91 kg 88.5 kg Intake: Intake, IV Titration 100 Amount Phytonadione 5 mg In 100 Sodium Chloride 0.9% 50 ml @ 100 mls/hr IVPB ONCE ONE Rx#:[id number] Oral 360 118 Output: Urine 500 2400 900 Uretheral (Oconnell) 900 900 Other: Voiding Method Indwelling Catheter Indwelling Catheter Indwelling Catheter # Voids 1 - Exam GENERAL EXAM: Alert, very pleasant, 64-year-old white female on 2 L of oxygen with a pulse ox of 96%,comfortable in no apparent distress. HEAD: Normocephalic/atraumatic. EYES: Normal reaction of pupils, equal size. Conjunctiva pink, sclera white. NOSE: Clear with pink turbinates. THROAT: No erythema or exudates. NECK: No masses, no JVD, no thyroid enlargement, no adenopathy. CHEST: No chest wall deformity. Symmetrical expansion. LUNGS: Equal air entry with diminished breath sounds at the right base CVS: Regular rate and rhythm, normal S1 and S2, no gallops, no murmurs, no rubs ABDOMEN: Soft, nontender. No hepatosplenomegaly, normal bowel sounds, no guarding or rigidity. EXTREMITIES: No clubbing, no edema, no cyanosis, 2+ pulses and upper and lower extremities. MUSCULOSKELETAL: Muscle strength and tone normal. SPINE: No scoliosis or deformity SKIN: No rashes CENTRAL NERVOUS SYSTEM: Alert and oriented -3. No focal deficits, tone is normal in all 4 extremities. PSYCHIATRIC: Alert and oriented -3. Appropriate affect. Intact judgment and insight. - Labs CBC & Chem 7: 11/15/19 23:12 11/17/19 05:53 Labs: Abnormal Lab Results - Last 24 Hours (Table) 11/17/19 11/17/19 Range/Units 05:43 05:53 PT 14.2 H (9.0-12.0) sec INR 1.4 H (<1.2) Sodium 135 L (137-145) mmol/L Glucose 118 H (74-99) mg/dL Total Bilirubin 3.5 H (0.2-1.3) mg/dL AST 46 H (14-36) U/L Total Protein 6.2 L (6.3-8.2) g/dL Albumin 2.7 L (3.5-5.0) g/dL Microbiology - Last 24 Hours (Table) 11/16/19 09:30 Gram Stain - Preliminary Pleural Fluid Body Fluid Culture - Preliminary Assessment and Plan Plan: Assessment: 1 complete atelectasis of the right lung secondary to a massive large right- sided pleural effusion, 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 pleural fluid analysis and cytology have been ordered and are pending at this time, so far pleural fluid Gram stain has shown no organisms. Overall patient is feeling much better and breathing much easier. No acute events overnight, no worsening dyspnea or chest pain. We'll continue to follow the cultures and cytology. I performed a history & physical examination of the patient and discussed their management with my nurse practitioner, Lexus Beverly. I reviewed the nurse practitioner's note and agree with the documented findings and plan of care. L dee sounds are positive for diminished breath sounds at the right base. The findings and the impression was discussed with the patient. I attest to the documentation by the nurse practitioner. Time with Patient: Less than 30
[2019-11-17 14:30] LABS: Glucose, BF Source Pleural Fluid; Glucose, Body Fluid 148 mg/dL; LDH, Body Fluid Source Pleural Fluid; Total Protein, Body Fluid 1109 mg/dL
--- NOTE | 2019-11-17 18:00 | XR ---
EXAMINATION TYPE: XR chest 2V DATE OF EXAM: 11/17/2019 COMPARISON: 11/16/2019 HISTORY: Short of breath TECHNIQUE: FINDINGS: There is moderate size right pleural effusion. Left lung is clear. There is no heart failur e. There is 50% opacification right hemithorax. There are chest leads. Bony thorax is intact. IMPRESSION: Large right pleural effusion increased compared to yesterday. No pneumothorax.
--- NOTE | 2019-11-18 00:59 | CONS ---
CONSULTATION DATE OF DICTATION: 11/17/2019. REASON FOR CONSULTATION: Alcoholic cirrhosis of the liver. HISTORY: The patient is a 64-year-old pleasant white female with history of heavy alcoholism in the past. She quit drinking about 3 years ago. Diagnosed with alcoholic cirrhosis while she was living in [place]. She stated that she was diagnosed with ascites and had paracentesis about 3 years ago. After that she quit drinking completely, but however, for the last 6 months, she started drinking 5 to 6 glasses of wine on a daily basis. She presents to the hospital with shortness of breath and was subsequently diagnosed with right-sided pleural effusion and underwent thoracentesis and 3.5 L of fluid was removed. We are consulted in regards to underlying cirrhosis. She denies any abdominal pain. Reports no nausea, vomiting. She does complain of some abdominal distention. She did have ultrasound of the abdomen done that did not show any evidence of ascites. PAST MEDICAL HISTORY: Her past medical history is significant for alcoholic cirrhosis of the liver diagnosed 4 years ago. History of ascites in the past. PAST SURGICAL HISTORY: Femur repair. MEDICATIONS: Medications at home include Advil and tramadol. ALLERGIES: None. SOCIAL HISTORY: Alcohol use as mentioned above and former smoker. FAMILY HISTORY: None. REVIEW OF SYSTEMS: CARDIOPULMONARY: No chest pain or shortness of breath. GENITOURINARY: No dysuria or hematuria. MUSCULOSKELETAL: Unremarkable. SKIN: Unremarkable. ENDOCRINE: Unremarkable. PSYCHIATRIC: Unremarkable. NEUROLOGY: Unremarkable. ENT/VISION: Unremarkable. CONSTITUTIONAL: No recent weight loss. No fever, chills or night sweats. PHYSICAL EXAMINATION: She appears comfortable. No apparent distress. Vital signs are stable. Blood pressure 110/64, pulse rate 97, temperature 97.5. HEENT EXAMINATION: Unremarkable. Conjunctivae pink. Sclerae anicteric. Oral cavity no lesions. NECK: No JVD or lymph node enlargement. CHEST: Clear to auscultation. HEART: Regular rate and rhythm. ABDOMEN: Soft, slightly distended, but there was no free fluid noted. EXTREMITIES: Trace pedal edema. SKIN: No rashes. NEURO: She is alert and oriented x3. No focal deficits. LABS: WBC 3.4, hemoglobin 10.4, MCV 124, platelets 135. AST and ALT are 52 and 14 respectively. T bilirubin 4.6. Alkaline phosphatase 159. Pleural fluid results protein was 1.1 gram and glucose was 148. Abdominal and pelvic CT showed right-sided hydrothorax, moderate abdominal ascites, sigmoid diverticulosis without diverticulitis and splenomegaly. She did have abdominal ultrasound done today that did not show any sizable collection to perform paracentesis. IMPRESSION: 1. Alcoholic cirrhosis of the liver with portal hypertension and ascites. Initial CAT scan at the time of admission to the hospital showed moderate ascites, but today ultrasound of the abdomen did not show significant ascites for which paracentesis could be performed. 2. Right-sided pleural effusion, status post thoracentesis 3.5 L of fluid removed. She is feeling much better. 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 3. Elevated bilirubin and mild elevation of serum transaminases consistent with alcoholic liver disease with mild component of alcoholic hepatitis. 4. Pancytopenia secondary to chronic liver disease. RECOMMENDATION: 1. Agree with diuretic regimen with Lasix 40 mg twice daily and Aldactone 25 mg daily, but we will increase Aldactone to 100 mg daily. 2. Low salt diet. 3. Abstinence from alcohol. 4. Repeat LFTs in the morning. 5. We will follow with you closely. Thank you for this consultation. MMODL / IJN: [id number] /
[2019-11-18 07:36] LABS: Anisocytosis Moderate; HCT 25.6 % (34.0-46.0); Hypochromasia Marked; MCH 40.5 pg (25.0-35.0); MCHC 32.1 g/dL (31.0-37.0); MCV 126.1 fL (80.0-100.0); Macrocytosis Marked; Mean Platelet Volume 10.1; RBC 2.03 m/uL (3.80-5.40); RDW 20.1 % (11.5-15.5); WBC 2.2 k/uL (3.8-10.6)
[2019-11-18 07:38] LABS: HGB 8.2 gm/dL (11.4-16.0)
[2019-11-18 07:39] LABS: ALT 12 U/L (4-34); AST 47 U/L (14-36); African American GFR (CKD) >90 (>60 ml/min/1.73 sqM); Albumin 2.7 g/dL (3.5-5.0); Alkaline Phosphatase 126 U/L (38-126); Anion Gap 3 mmol/L; Blood Urea Nitrogen 9 mg/dL (7-17); Calcium 8.2 mg/dL (8.4-10.2); Carbon Dioxide 34 mmol/L (22-30); Chloride 99 mmol/L (98-107); Glucose 128 mg/dL (74-99); Non-African American GFR(CKD) >90 (>60 ml/min/1.73 sqM); Potassium 3.3 mmol/L (3.5-5.1); Sodium 136 mmol/L (137-145); Total Protein 6.1 g/dL (6.3-8.2)
[2019-11-18] MEDS: FAMOTIDINE 20 MG TAB PO SCH ×2 (09:14→20:21)
[2019-11-18] MEDS: SPIRONOLACTONE 25 MG TAB PO SCH (09:14)
[2019-11-18] MEDS: FUROSEMIDE 10 MG/ML 4 ML VIAL IV SCH ×2 (09:14→20:21)
[2019-11-18] MEDS ORDERED: POTASSIUM CHLORIDE ER 20 MEQ TAB.ER PO STA (10:45)
[2019-11-18] MEDS ORDERED: POTASSIUM CHLORIDE ER 20 MEQ TAB.ER PO ONE (11:45)
[2019-11-18 11:46] LABS: INR 1.3 (<1.2); Prothrombin Time 13.3 sec (9.0-12.0)
--- NOTE | 2019-11-18 11:59 | P.PN ---
Subjective 64-year-old very pleasant female with known history of cirrhosis from alcoholism acute complaints of shortness of breath found to have complete whiteout of the right lung and pleural effusion on the right side. Patient has atelectasis because of large pleural effusion. Patient also has numerous gallstones and ascites. Patient is presently on 4 L which we are cutting it down now patient underwent emergent thoracentesis with removal of around 3.5 L of clear fluid.. Patient quit alcohol and smoking in 2014. Patient is feeling much better now patient will also undergo paracentesis by interventional radiology does have lower extremity edema bilaterally 11/17/2019 Patient patient did go for interventional radiology guided paracentesis not much fluid was drained. Patient remains in 3-7000 which will taper down repeat a chest x-ray tomorrow may need thoracentesis again tomorrow. Continue with diuretic therapy. 11/18/2019 Patient pleural effusion is bit worse today patient is still on 2 L far as and will wean it off patient will be discharged on Lasix will see for dementia etiology can do thoracentesis patient the had a thoracentesis with removal of 3.5 L couple days ago had increasing pleural effusion today. Constitutional: Denied any fatigue denied any fever. Cardio vascular: denied any chest pain, palpitations Gastrointestinal denied any nausea vomiting Pulmonary: Denied any shortness of breath cough Neurologic denied any new focal deficits All inpatient medications were reviewed and appropriate changes in these me dications as dictated in the interval history and assessment and plan. Objective - Vital Signs Vital signs: Vital Signs Temp 98.1 F 11/18/19 08:00 Pulse 92 11/18/19 08:00 Resp 18 11/18/19 08:00 BP 116/57 11/18/19 08:00 Pulse Ox 95 11/18/19 08:00 Intake & Output 11/17/19 11/18/19 11/18/19 18:59 06:59 18:59 Intake Total 698 320 Output Total 900 2800 1200 Balance -202 -2800 -880 Weight 86.8 kg Intake: Oral 698 320 Output: Urine 900 2800 1200 Uretheral ([place]) 900 600 Other: Voiding Method Indwelling Catheter Indwelling Catheter Indwelling Catheter - Exam PHYSICAL EXAMINATION: GENERAL: The patient is alert and oriented x3, not in any acute distress. Well developed, well nourished. HEENT: Pupils are round and equally reacting to light. EOMI. No scleral icterus. No conjunctival pallor. Normocephalic, atraumatic. No pharyngeal erythema. No thyromegaly. CARDIOVASCULAR: S1 and S2 present. No murmurs, rubs, or gallops. PULMONARY: Decreased air entry into bilateral lung jimenez ABDOMEN: Soft, distended with shifting dullness and ascites, normoactive bowel sounds. No palpable organomegaly. MUSCULOSKELETAL: No joint swelling or deformity. EXTREMITIES: No cyanosis, clubbing, does have some pedal edema NEUROLOGICAL: Gross neurological examination did not reveal any focal deficits. SKIN: No rashes. - Labs CBC & Chem 7: 11/18/19 06:38 11/18/19 06:38 Labs: Abnormal Lab Results - Last 24 Hours (Table) 11/17/19 11/18/19 11/18/19 Range/Units 05:53 06:38 06:38 WBC 2.2 L (3.8-10.6) k/uL RBC 2.03 L (3.80-5.40) m/uL Hgb 8.2 L D (11.4-16.0) gm/dL Hct 25.6 L (34.0-46.0) % MCV 126.1 H (80.0-100.0) fL MCH 40.5 H (25.0-35.0) pg RDW 20.1 H (11.5-15.5) % Macrocytosis Marked A PT (9.0-12.0) sec INR (<1.2) Sodium 135 L 136 L (137-145) mmol/L Potassium 3.3 L (3.5-5.1) mmol/L Carbon Dioxide 34 H (22-30) mmol/L Glucose 118 H 128 H (74-99) mg/dL Calcium 8.2 L (8.4-10.2) mg/dL Total Bilirubin 3.5 H 3.0 H (0.2-1.3) mg/dL AST 46 H 47 H (14-36) U/L Total Protein 6.2 L 6.1 L (6.3-8.2) g/dL Albumin 2.7 L 2.7 L (3.5-5.0) g/dL 11/18/19 Range/Units 11:16 WBC (3.8-10.6) k/uL RBC (3.80-5.40) m/uL Hgb (11.4-16.0) gm/dL Hct (34.0-46.0) % MCV (80.0-100.0) fL MCH (25.0-35.0) pg RDW (11.5-15.5) % Macrocytosis PT 13.3 H (9.0-12.0) sec INR 1.3 H (<1.2) Sodium (137-145) mmol/L Potassium (3.5-5.1) mmol/L Carbon Dioxide (22-30) mmol/L Glucose (74-99) mg/dL Calcium (8.4-10.2) mg/dL Total Bilirubin (0.2-1.3) mg/dL AST (14-36) U/L Total Protein (6.3-8.2) g/dL Albumin (3.5-5.0) g/dL Microbiology - Last 24 Hours (Table) 11/16/19 09:30 Gram Stain - Preliminary Pleural Fluid Body Fluid Culture - Preliminary Assessment and Plan Plan: -Shortness of breath, acute respiratory failure: Secondary to pleural effusion. Patient is status post thoracentesis and removal of 3.5 L. patient was admitted on IV Lasix twice a day along with Aldactone. We'll order ultrasound-guided thoracentesis -Ascites secondary to cirrhosis: IV Lasix and Aldactone will be continued, patient did undergo some greater paracentesis not much fluid was obtained during this procedure. -Pancytopenia secondary to liver disease Coagulopathy with elevated INR secondary to liver disease -GI prophylaxis with Pepcid
[2019-11-18 12:01] LABS: Platelet Count 93 k/uL (150-450)
--- NOTE | 2019-11-18 12:33 | P.PN ---
Subjective Progress Note Date: 11/18/19 Principal diagnosis: dyspnea, large pleural effusion 4-year-old female patient with known history of liver cirrhosis arrived from [place] in October 2019. The patient was expressing progressive worsening in shortness of breath and yesterday she came into the emergency department she had a complete white out of the right lung. This was consistent with a large right- sided pleural effusion. At The chest confirmed the finding and there was complete atelectasis of the right lung with massive amount of right-sided pleural effusion. The right-sided hydropneumothorax in addition to complete atelectasis of the right lung and there was moderate splenomegaly without any focal liver defect. There was numerous calcified gallstones. There was some minimal ascites also. No evidence of any pancreatic mass. Uterine fibroid was also seen. The patient is currently on oxygen at 4 L. She is a chronic smoker. She is also a chronic drinker and she has been trying to quit drinking. She has been an alcoholic for 30 years. She has made efforts to quit drinking, however she hasn't been absolutely successful and she is still drinks on and off right and she ultimately has not drank for around 3 months. She has chronic edema lower extremities. Does not take any form of diuretics. No history of encephalopathy. The patient has not several hepatitis. She has had a previous paracentesis back in 2014. Blood work shows some mild grade of pancytopenia, INR is at 1.5 and she has a normal renal function. On patient seen in follow-up on selective care unit. She is resting comfortably in bed, breathing appears to be quite comfortable, she is status post right-sided thoracentesis, would removal of 3.6 L of turbid yellow- colored fluid. tolerated procedure well, follow-up chest x-ray showed significant improvement in the amount of right-sided pleural fluid, and no evidence of pneumothorax. cultures of the pleural fluid are negative thus far, Gram stain showed no organisms.patient has had no fever or chills, she is scheduled for paracentesis today, denies any abdominal pain, she is on IV Lasix of 40 mg twice daily. and she is in -2.4 L over the last 24 hours, INR today is 1.4, patient received a dose of vitamin K On 11/18/2019 patient seen in follow-up on selective care unit. She is awake and oriented, in no acute distress, she status post right-sided thoracentesis would removal of 3.6 L of turbid yellow-colored fluid on 11/16/2019, pleural fluid analysis showed transudative fluid, with LDH of 65, and total fluid protein of 1.1 g. Pleural fluid cultures are pending, preliminary Gram stain showed no organisms. Cytology is pending. Remains on IV diuretics at 40 mg twice a day. She is in negative fluid balance of 3002 mL over the last 24 hours. Follow-up chest x-ray yesterday showed some reaccumulation of the right- sided pleural effusion, no pneumothorax. Left lung is clear. Vital signs are stable, patient is on 2 L of oxygen the pulse ox of 95%, no fever or chills Objective - Vital Signs Vital signs: Vital Signs Temp 98.1 F 11/18/19 08:00 Pulse 92 11/18/19 08:00 Resp 18 11/18/19 08:00 BP 116/57 11/18/19 08:00 Pulse Ox 95 11/18/19 08:00 Intake & Output 11/17/19 11/18/19 11/18/19 18:59 06:59 18:59 Intake Total 698 320 Output Total 900 2800 1200 Balance -202 -2800 -880 Weight 86.8 kg Intake: Oral 698 320 Output: Urine 900 2800 1200 Uretheral ([place]) 900 600 Other: Voiding Method Indwelling Catheter Indwelling Catheter Indwelling Catheter - Exam GENERAL EXAM: Alert, very pleasant, 64-year-old white female on 2 L of oxygen with a pulse ox of 95%,comfortable in no apparent distress. HEAD: Normocephalic/atraumatic. EYES: Normal reaction of pupils, equal size. Conjunctiva pink, sclera white. NOSE: Clear with pink turbinates. THROAT: No erythema or exudates. NECK: No masses, no JVD, no thyroid enlargement, no adenopathy. CHEST: No chest wall deformity. Symmetrical expansion. LUNGS: Equal air entry with diminished breath sounds at the right base CVS: Regular rate and rhythm, normal S1 and S2, no gallops, no murmurs, no rubs ABDOMEN: Soft, nontender. No hepatosplenomegaly, normal bowel sounds, no guarding or rigidity. EXTREMITIES: No clubbing, no edema, no cyanosis, 2+ pulses and upper and lower extremities. MUSCULOSKELETAL: Muscle strength and tone normal. SPINE: No scoliosis or deformity SKIN: No rashes CENTRAL NERVOUS SYSTEM: Alert and oriented -3. No focal deficits, tone is normal in all 4 extremities. PSYCHIATRIC: Alert and oriented -3. Appropriate affect. Intact judgment and insight. - Labs CBC & Chem 7: 11/18/19 06:38 11/18/19 06:38 Labs: Abnormal Lab Results - Last 24 Hours (Table) 11/18/19 11/18/19 11/18/19 Range/Units 06:38 06:38 11:16 WBC 2.2 L (3.8-10.6) k/uL RBC 2.03 L (3.80-5.40) m/uL Hgb 8.2 L D (11.4-16.0) gm/dL Hct 25.6 L (34.0-46.0) % MCV 126.1 H (80.0-100.0) fL MCH 40.5 H (25.0-35.0) pg RDW 20.1 H (11.5-15.5) % Plt Count 93 L (150-450) k/uL Macrocytosis Marked A PT 13.3 H (9.0-12.0) sec INR 1.3 H (<1.2) Sodium 136 L (137-145) mmol/L Potassium 3.3 L (3.5-5.1) mmol/L Carbon Dioxide 34 H (22-30) mmol/L Glucose 128 H (74-99) mg/dL Calcium 8.2 L (8.4-10.2) mg/dL Total Bilirubin 3.0 H (0.2-1.3) mg/dL AST 47 H (14-36) U/L Total Protein 6.1 L (6.3-8.2) g/dL Albumin 2.7 L (3.5-5.0) g/dL Microbiology - Last 24 Hours (Table) 11/16/19 09:30 Gram Stain - Preliminary Pleural Fluid Body Fluid Culture - Preliminary Assessment and Plan Plan: Assessment: 1 complete atelectasis of the right lung secondary to a massive large right- sided pleural effusion, 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 Fluid analysis showed transudative pleural effusion likely related to underlying liver cirrhosis. Paracentesis was not done related to there not being enough fluid for drainage. No acute issues overnight, from pulmonary perspective patient can be considered for discharge home today with outpatient follow-up with Dr. Ledesma in the office next week for repeat chest x-ray. I performed a history & physical examination of the patient and discussed their management with my nurse practitioner, Lexus Beverly. I reviewed the nurse practitioner's note and agree with the documented findings and plan of care. Lung sounds are positive for diminished breath sounds at the right base. The findings and the impression was discussed with the patient. I attest to the documentation by the nurse practitioner. Time with Patient: Less than 30
--- NOTE | 2019-11-18 14:20 | XR ---
EXAMINATION TYPE: XR chest 1V portable DATE OF EXAM: 11/18/2019 COMPARISON: 11/17/2019 HISTORY: Status post right-sided thoracentesis TECHNIQUE: Single frontal view of the chest is obtained. FINDINGS: There is marked improvement of the right pleural effusion, now trace. No sizable left pleu ral effusion. No postprocedural pneumothorax seen. Cardiomediastinal silhouette is upper limits of no rmal. Nodular density along the left heart border may relate to an overlying nipple shadow or nodular atelectasis as no pulmonary nodule was seen on the recent CT of 11/16/2019. IMPRESSION: Marked improvement of the right pleural effusion, now trace with no postprocedural pneum othorax status post right-sided thoracentesis.
--- NOTE | 2019-11-18 15:06 | US ---
EXAMINATION TYPE: US thoracentesis DATE OF EXAM: 11/18/2019 COMPARISON: NONE HISTORY: Pleural effusion. FINDINGS: Maximal barrier technique was utilized. The skin overlying a suitable pocket of fluid was localized and the overlying skin prepped and draped. Lidocaine was used for local anesthesia. Ultras ound was used with sterile technique. A 5 Wolof catheter over guide needle was advanced into the pl eural fluid collection using ultrasound guidance and the catheter advanced, needle removed. Approxim ately 3 liter(s) of serous fluid was removed. Catheter was withdrawn and hemostasis achieved. There is no immediate complication. The patient discharged in stable condition without complication. IMPRESSION: STATUS POST ULTRASOUND GUIDED THORACENTESIS, POST PROCEDURE CHEST X-RAY PENDING. THIS MA OCEDURE WAS PERFORMED BY THE UNDERSIGNED.
--- NOTE | 2019-11-18 17:53 | PN ---
PROGRESS NOTE DATE OF DICTATION: 11/18/2019 This patient is a 64-year-old pleasant white female with history of alcoholic cirrhosis of the liver who has been abstinent from alcohol for 3 years but had a relapse, admitted to the hospital with pleural effusion. She underwent right-sided thoracentesis yesterday as well as today, and each time approximately 3.5 L of fluid was removed. The patient is feeling much better. She did have an abdominal ultrasound. No significant ascites noted. Presently on Lasix 40 mg twice daily as well as mg daily. Overall she is feeling much better. PHYSICAL EXAMINATION: Appears comfortable. No apparent distress. Vital signs are stable. Blood pressure is 109/67, pulse rate 82, temperature 98. HEENT examination unremarkable. Conjunctivae pink. Sclerae anicteric. Oral cavity no lesions. NECK: No JVD or lymph node enlargement. CHEST: Clear to auscultation. HEART: Regular rate and rhythm. ABDOMEN: Soft. It was slightly distended but there was no free fluid noted. EXTREMITIES: No pedal edema. SKIN: No rashes. NEUROLOGIC: Alert and oriented x3. No focal deficits. LABS: WBC 2.2, hemoglobin 10.2, platelets are 93,000. INR is 1.3. Basic metabolic panel: potassium is 3.3, BUN and creatinine are within normal limits. IMPRESSION: 1. Recurrent right-sided pleural effusion, status post thoracentesis yesterday and today, status post 3 to 3.5 L of fluid removed each session. She is feeling much better. 2. Abdominal ascites. Recent ultrasound of the abdomen did not show any significant ascites for paracentesis. Presently on Lasix 40 b.i.d. and Aldactone 100 mg daily. 3. Alcoholic cirrhosis of the liver. 4. Elevated bilirubin and AST more than ALT with acute alcoholic hepatitis superimposed on alcoholic cirrhosis of the liver. RECOMMENDATIONS: 1. Continue current diuretic regimen. 2. Low-salt diet. 3. Abstinence from alcohol. 4. Monitor labs closely. 5. Will follow with you. Thank you for this consultation. [id number] / CONRDAN: [id number] /
[2019-11-19 08:50] VITALS: BP 104/62; PULSE 94; RESP 18; TEMP 98.4
[2019-11-19] MEDS: FUROSEMIDE 10 MG/ML 4 ML VIAL IV SCH (08:51)
[2019-11-19] MEDS: FAMOTIDINE 20 MG TAB PO SCH (08:51)
[2019-11-19] MEDS: SPIRONOLACTONE 25 MG TAB PO SCH (08:51)
[2019-11-19 09:13] LABS: Anisocytosis Moderate; HCT 25.2 % (34.0-46.0); HGB 8.1 gm/dL (11.4-16.0); Hypochromasia Moderate; MCH 40.2 pg (25.0-35.0); MCHC 32.2 g/dL (31.0-37.0); Macrocytosis Marked; Mean Platelet Volume 9.7; RBC 2.02 m/uL (3.80-5.40); RDW 20.2 % (11.5-15.5); WBC 1.8 k/uL (3.8-10.6)
[2019-11-19 09:17] LABS: Platelet Count 88 k/uL (150-450)
[2019-11-19 09:21] LABS: ALT 12 U/L (4-34); AST 47 U/L (14-36); African American GFR (CKD) >90 (>60 ml/min/1.73 sqM); Albumin 2.7 g/dL (3.5-5.0); Alkaline Phosphatase 125 U/L (38-126); Anion Gap 6 mmol/L; Blood Urea Nitrogen 9 mg/dL (7-17); Calcium 8.3 mg/dL (8.4-10.2); Carbon Dioxide 31 mmol/L (22-30); Chloride 97 mmol/L (98-107); Glucose 125 mg/dL (74-99); Non-African American GFR(CKD) >90 (>60 ml/min/1.73 sqM); Potassium 3.3 mmol/L (3.5-5.1); Sodium 134 mmol/L (137-145); Total Bilirubin 2.8 mg/dL (0.2-1.3)
[2019-11-19 11:20] LABS: Band Neutrophils % 2 %; Basophils # (M) 0.02 k/uL (0-0.2); Eosinophils # (M) 0.05 k/uL (0-0.7); Lymphocytes # (M) 0.76 k/uL (1.0-4.8); Monocytes # (M) 0.04 k/uL (0-1.0); Neutrophils % (M) 50 %; Nucleated Red Blood Cells 0 /100 WBC (0-0); Total Cells Counted 100
[2019-11-19 11:21] LABS: Poikilocytosis (M) Present
[2019-11-19] MEDS ORDERED: POTASSIUM CHLORIDE ER 20 MEQ TAB.ER PO STA (11:32)
--- NOTE | 2019-11-19 12:27 | P.DS ---
Providers Date of admission: 11/16/19 01:33 Attending physician: Cortney Quintanilla Consults: 11/16/19 02:29 Consult Physician Stat Consulting Provider: Marco Antonio Lemus Consult Reason/Comments: CT reports cholecystitis and cholelithiasis Do you want consulting provider notified?: Yes 11/16/19 08:48 Consult Physician Urgent Consulting Provider: Margareth Ledesma Consult Reason/Comments: hydrothorax, complete atelectasis right lung Do you want consulting provider notified?: Yes 11/17/19 10:18 Consult Physician Routine Consulting Provider: Rosalee Myers Consult Reason/Comments: alcoholic liver cirrhosis Do you want consulting provider notified?: Yes Primary care physician: Stated None Hospital Course: 64-year-old very pleasant female with known history of cirrhosis from alcoholism acute complaints of shortness of breath found to have complete whiteout of the right lung and pleural effusion on the right side. Patient has atelectasis because of large pleural effusion. Patient also has numerous gallstones and ascites. Patient is presently on 4 L which we are cutting it down now patient underwent emergent thoracentesis with removal of around 3.5 L of clear fluid.. Patient quit alcohol and smoking in 2014. Patient is feeling much better now patient will also undergo paracentesis by interventional radiology does have lower extremity edema bilaterally 11/17/2019 Patient patient did go for interventional radiology guided paracentesis not much fluid was drained. Patient remains in 3-7000 which will taper down repeat a chest x-ray tomorrow may need thoracentesis again tomorrow. Continue with diuretic therapy. 11/18/2019 Patient pleural effusion is bit worse today patient is still on 2 L far as and will wean it off patient will be discharged on Lasix will see for dementia etio logy can do thoracentesis patient the had a thoracentesis with removal of 3.5 L couple days ago had increasing pleural effusion today. 11/19/2019 Patient underwent another process and sepsis procedure with removal of around the 3 L of for transudative fluid patient is off oxygen patient was discharged on Lasix and Aldactone , patient can have different recurrence of pleural effusion again. PHYSICAL EXAMINATION: GENERAL: The patient is alert and oriented x3, not in any acute distress. Well developed, well nourished. HEENT: Pupils are round and equally reacting to light. EOMI. No scleral icterus. No conjunctival pallor. Normocephalic, atraumatic. No pharyngeal erythema. No thyromegaly. CARDIOVASCULAR: S1 and S2 present. No murmurs, rubs, or gallops. PULMONARY: Decreased air entry into bilateral lung jimenez ABDOMEN: Soft, distended with shifting dullness and ascites, normoactive bowel sounds. No palpable organomegaly. MUSCULOSKELETAL: No joint swelling or deformity. EXTREMITIES: No cyanosis, clubbing, does have some pedal edema NEUROLOGICAL: Gross neurological examination did not reveal any focal deficits. SKIN: No rashes. Assessment and Plan Plan: -Shortness of breath, acute respiratory failure: Secondary to pleural effusion. Patient is status post thoracentesis and removal of 6.5 L total -Ascites secondary to cirrhosis: -Pancytopenia secondary to liver disease Coagulopathy with elevated INR secondary to liver disease Patient Condition at Discharge: Serious Plan - Discharge Summary Discharge Rx Participant: Yes New Discharge Prescriptions: New Spironolactone [Aldactone] 100 mg PO DAILY #30 tab Potassium Chloride ER [K-Dur 20] 20 meq PO DAILY #30 tab Furosemide [Lasix] 40 mg PO BID #60 tablet Famotidine [Pepcid] 20 mg PO BID #30 tab Continue traMADol HCL 50 mg PO HS PRN PRN Reason: Mild Pain Ibuprofen [Advil] 200 mg PO DAILY PRN PRN Reason: Pain Discharge Medication List Ibuprofen [Advil] 200 mg PO DAILY PRN 11/16/19 [History] traMADol HCL 50 mg PO HS PRN 11/16/19 [History] Famotidine [Pepcid] 20 mg PO BID #30 tab 11/19/19 [Rx] Furosemide [Lasix] 40 mg PO BID #60 tablet 11/19/19 [Rx] Potassium Chloride ER [K-Dur 20] 20 meq PO DAILY #30 tab 11/19/19 [Rx] Spironolactone [Aldactone] 100 mg PO DAILY #30 tab 11/19/19 [Rx] Follow up Appointment(s)/Referral(s): Marco Antonio Lemus MD [Medical Doctor] - As Needed Rosalee Myers MD [STAFF PHYSICIAN] - 2 Weeks None,Stated [Primary Care Provider] - 1-2 days Margareth Ledesma MD [STAFF PHYSICIAN] - 1 Week (Pt prefers to make appt with Dr Ledesma) Ambulatory/Diagnostic Orders: Basic Metabolic Panel [LAB.AMB] Time Frame: 3 Days, Location: None Selected Patient Instructions/Handouts: Pleural Effusion (DC), Thoracentesis (DC) Discharge Disposition: HOME SELF-CARE
[2019-11-19 15:08] VITALS: BMI 29.2
--- NOTE | 2019-11-20 03:45 | PN ---
PROGRESS NOTE DATE OF DICTATION: 11/19/2019 Patient is a 64-year-old pleasant white female with history of alcoholic cirrhosis of the liver with portal hypertension and ascites as well as right-sided pleural effusion for which she underwent thoracentesis x2 in the last 2 days. She is feeling much better presently on Lasix 40 b.i.d. and Aldactone 100 mg daily. She denies any symptoms. Shortness of breath has improved. PHYSICAL EXAMINATION: On physical examination, appears comfortable, no apparent distress. Vital signs are stable. Blood pressure is 112/62, pulse rate 94, temperature 98.4. HEENT EXAMINATION: Unremarkable. Conjunctivae pink. Sclerae anicteric. Oral cavity, no lesions. NECK: No JVD or lymph node enlargement. CHEST: Clear to auscultation. HEART: Regular rate and rhythm. ABDOMEN: Soft, nontender. No free fluid noted. EXTREMITIES: No pedal edema. SKIN: No rashes. NEUROLOGIC: Alert and oriented x3. No focal deficits. LABS: WBC 1.8, hemoglobin 8.1, platelets are 88,000. Basic metabolic panel is within normal limits. BUN 9, creatinine 0.57. T-bilirubin 2.8. AST, ALT 47 and 12 respectively. Alkaline phosphatase 125. IMPRESSION: 1. Alcoholic cirrhosis of the liver with gradual decompensation. 2. Mild ascites. 3. Recurrent right-sided pleural effusion, status post thoracentesis x2 in the last 2 days and a total of 6 L of fluid was removed. 4. Pancytopenia secondary to underlying chronic liver disease. RECOMMENDATIONS: 1. Continue Lasix 40 b.i.d. 2. Aldactone 100 mg daily. 3. Low-salt diet. 4. Daily weights. 5. She can be discharged home today with outpatient followup in 2 weeks. 6. Abstain from alcohol. Thank you for this consultation. MMODL / IJN: [id number] /
--- NOTE | 2019-11-20 11:34 | CDI ---
Documentation Clarification Form Date: 11/20/19 From: Tomasa Mondragon Phone: If you have a question about this query, please contact Molly Summers, Manager Regional Sales at [phone] between 8am and 5pm. Admit Date: 11/16/19 Discharge Date:11/19/19 Patient Name: Tanja Lea Visit Number: [id number] ATTENTION: The Clinical Documentation Specialists (CDI) and [facility] Coding Staff appreciate your assistance in clarifying documentation. Please respond to the clarification below the line at the bottom and electronically sign. The CDI & [facility] Coding staff will review the response and follow-up if needed. Please note: Queries are made part of the Legal Health Record. If you have any questions, please contact the author of this message via ITS. Dear Dr. Mitchell The patient presented with the following respiratory symptoms: dyspnea, shortness of breath and respiratory distress.. Documentation in the discharge summary and your 11/16 - 11/17 progress notes state acute respiratory failure History/Risk Factors: Pleural effusion, ascites, alcoholic cirrhosis Tobacco use: History of smoking Home oxygen: None Clinical Indicators: shortness of breath, decreased pulse ox Vital signs: T. 98.5, P. 107, R. 24, Pulse ox. 97% on O2 Pulse Ox. 11/16/19 at 09:30 - 93% on 4 liters O2 11/16/19 at 09:53 - 92% on 4 liters O2 11/17/19 at 20:00 - 94% on 4 liters O2 Lung/Breathing assessment: Lung sounds are diminshed in the right compared to the left and there is dullness to percussion. Treatment: O2 at 4 L per nasal cannula Breathing tx: Albuterol inhalation tx In your professional opinion, can you please clarify the type of acute respiratory failure? Specificity: If known, further specify (if known): With hypercapnia? (pCO2 >50 and pH <7.35) With hypoxia? (pO2 <60 mm Hg or SpO2 <91% on room air) Hypoxic respiratory failure acute MTDD
== END 2019-11-19 16:00 | disposition home or self-care (01) | DRG 186 ==
LOC: EC 22:51 → 3SCARD 11-16 01:33
PROVIDERS: ADMIT Hospitalist; ATTEND Hospitalist
PROC: 0W993ZZ Drainage of Right Pleural Cavity, Percutaneous Approach (ICD-10-PCS; principal; 2019-11-16)
PROC: 0W993ZZ Drainage of Right Pleural Cavity, Percutaneous Approach (ICD-10-PCS; 2019-11-18)
DX: J94.8 Other specified pleural conditions (principal); J96.01 Acute respiratory failure with hypoxia; D61.818 Other pancytopenia; D68.4 Acquired coagulation factor deficiency; J98.11 Atelectasis; K76.6 Portal hypertension; K80.10 Calculus of gallbladder with chronic cholecystitis without obstruction; K70.31 Alcoholic cirrhosis of liver with ascites; J91.8 Pleural effusion in other conditions classified elsewhere; K70.11 Alcoholic hepatitis with ascites; D25.9 Leiomyoma of uterus, unspecified; K57.90 Diverticulosis of intestine, part unspecified, without perforation or abscess without bleeding; R16.1 Splenomegaly, not elsewhere classified; Z20.828 Contact with and (suspected) exposure to other viral communicable diseases; F10.21 Alcohol dependence, in remission; Z87.891 Personal history of nicotine dependence; Z80.7 Family history of other malignant neoplasms of lymphoid, hematopoietic and related tissues
CPT/HCPCS: 32555; 36415; 71045; 71046; 71275; 74177; 76705; 80053; 82945; 83605; 83615; 83880; 84157; 84484; 85025; 85027; 85379; 85610; 85730; 87070; 87205; 88108; 88305; 89050; 93005; 94640; 96374; 99285

== ENCOUNTER → 2019-12-03 | Outpatient (CLI) | payer MEDICARE, BC ==
[2019-12-03 12:52] LABS: INR 1.3 (<1.2); Prothrombin Time 12.8 sec (9.0-12.0)
[2019-12-03 12:55] LABS: Anisocytosis Slight; Basophils % (A) 1 %; Eosinophils # (A) 0.1 k/uL (0-0.7); Eosinophils % (A) 3 %; HCT 28.7 % (34.0-46.0); HGB 9.4 gm/dL (11.4-16.0); Hypochromasia Moderate; Lymphocytes # (A) 0.9 k/uL (1.0-4.8); Lymphocytes % (A) 34 %; MCH 41.8 pg (25.0-35.0); MCHC 32.8 g/dL (31.0-37.0); MCV 127.4 fL (80.0-100.0); Macrocytosis Marked; Mean Platelet Volume 9.7; Monocytes # (A) 0.1 k/uL (0-1.0); Monocytes % (A) 3 %; Neutrophils # (A) 1.5 k/uL (1.3-7.7); Neutrophils % (A) 57 %; Platelet Count 111 k/uL (150-450); RBC 2.26 m/uL (3.80-5.40); RDW 19.8 % (11.5-15.5); WBC 2.7 k/uL (3.8-10.6)
[2019-12-03 21:00] LABS: % Iron Saturation 89.21 (12.00-45.00); African American GFR (CKD) 77.2 (60.0-200.0); Albumin 3.8 g/dL (3.80-4.90); Albumin/Globulin Ratio 1.15 (1.60-3.17); Anion Gap 8.7 mmol/L (4.00-12.00); BUN/Creat Ratio 17.78 Ratio (12.00-20.00); Calcium 9.4 mg/dL (8.7-10.3); Carbon Dioxide 25.3 mmol/L (21.6-31.8); Globulin 3.3 g/dL (1.6-3.3); Non-African American GFR(CKD) 66.6 (60.0-200.0); Potassium 4.6 mmol/L (3.5-5.5); Total Bilirubin 4.2 mg/dL (0.2-1.2); Total Protein 7.1 g/dL (6.2-8.2)
[2019-12-03 21:09] LABS: Folate, Serum 4.5 ng/mL
[2019-12-03 21:25] LABS: Protein, Total 7.2 g/dL (6.2-8.2)
[2019-12-03 21:42] LABS: Ferritin 1849.1 ng/mL (10.0-291.0)
[2019-12-03 22:08] LABS: Hepatitis A Antibody IgM Non-Reactive (Non-Reactive); Hepatitis B Core IgM Non-Reactive (Non-Reactive); Hepatitis B Surface Antigen Non-Reactive (Non-Reactive); Hepatitis C IgG Antibody Non-Reactive (Non-Reactive)
[2019-12-04 12:47] LABS: Ceruloplasmin 26.3 mg/dL (20.0-60.0)
[2019-12-04 13:28] LABS: Liver/Kidney Microsome Antibod 1.7 UNITS (<=20)
[2019-12-04 14:36] LABS: Albumin 3.69 g/dL (3.80-4.90); Gamma Globulin 1.94 g/dL (0.70-1.50)
== END | disposition home or self-care (01) ==
LOC: LABWHC1 12:08
PROVIDERS: ATTEND Nurse Practitioner
DX: R74.8 Abnormal levels of other serum enzymes (principal); D61.818 Other pancytopenia
CPT/HCPCS: 36415; 80053; 80074; 82103; 82390; 82607; 82728; 82746; 83516; 83540; 83550; 84165; 85025; 85610; 86038; 86376

== ENCOUNTER → 2020-01-14 | Outpatient (CLI) | payer MEDICARE, BC | END | disposition home or self-care (01) | LOC: LABWHC1 09:17 | PROVIDERS: ATTEND Nurse Practitioner | DX: R74.8 Abnormal levels of other serum enzymes (principal) | CPT/HCPCS: 36415; 81256; 82105; 82677; 84702; 86336 ==

== ENCOUNTER → 2021-08-23 | Outpatient (CLI) | payer MEDICARE, BC ==
--- NOTE | 2021-08-23 12:32 | CT ---
EXAMINATION TYPE: CT abdomen wo/w con DATE OF EXAM: 08/23/2021 COMPARISON: CT abdomen and pelvis November 16, 2019 HISTORY: Renal cyst CT DLP: 1957 mGycm Automated exposure control for dose reduction was used. TECHNIQUE: Helical acquisition of images was performed from the lung bases through the top of iliac crest to include entire abdomen. CONTRAST: Performed with Oral Contrast and without and with IV Contrast, patient injected with 100 mL of Isovue 300. FINDINGS: LUNG BASES: No significant abnormality is appreciated. LIVER/GB: Liver is normal in size with lobulated contour consistent with underlying cirrhosis. Innume rable small hyperdense gallstones filled gallbladder currently. No surrounding fluid or fat stranding . PANCREAS: No significant abnormality is seen. SPLEEN: Marked splenomegaly more prominent from prior measuring 18.8 cm long axis coronal image 52 se jaye 4. ADRENALS: No significant abnormality is seen. KIDNEYS: No renal calculi on noncontrast images. There are 2 adjacent benign-appearing thin-walled cy st laterally in the right kidney with long curvilinear thin calcification. No suspicious nodularity o r enhancing solid component. Symmetric cortical medullary uptake and excretion without hydronephrosis seen bilaterally. No concerning greater than 1 cm solid or cystic masses in the left kidney. BOWEL: Oral contrast was not reached level of the terminal ileum. Small bowel feces sign terminal il eum. No suspicious small bowel dilatation. Findings consistent with delayed passage of ingested mater ial to colonic level. Few diverticula in the visualized portion of sigmoid colon redemonstrated. LYMPH NODES: No significant abnormality is seen. OSSEOUS STRUCTURES: Mild height loss more prominent Schmorl nodes superior L3 through the L5 endplat es redemonstrated. Facet arthropathy lower lumbar levels. FREE AIR: No free air is visualized. OTHER: Mild to moderate calcified plaque of the aorta extends into branch vessels. Persistent moderat e to large sized fat-containing left periumbilical hernia. IMPRESSION: There are 2 adjacent thin-walled cysts in the lateral aspect right kidney may have thin s epta that is partially calcified. They are increased in size from prior CT. No concerning solid or cy stic renal mass in either kidney. Cirrhosis with underlying portal venous hypertension redemonstrated . No ascites identified currently.
== END | disposition home or self-care (01) ==
LOC: RADCTMAIN 10:18
PROVIDERS: ATTEND Urology
DX: N28.1 Cyst of kidney, acquired (principal); K74.60 Unspecified cirrhosis of liver; K76.6 Portal hypertension
CPT/HCPCS: 82565; 84520; 74170; 36415; Q9967

== ENCOUNTER 2021-12-15 21:17 | Inpatient (IN) | payer MEDICARE, BC ==
[2021-12-15] MEDS ORDERED: MORPHINE SULFATE 4 MG/ML SYRINGE IV STA (23:41)
[2021-12-15] MEDS ORDERED: SODIUM CHLORIDE 0.9% 1,000 ML IV STA (23:41)
[2021-12-15] MEDS ORDERED: ONDANSETRON 4 MG/2 ML VIAL IVP STA (23:41)
[2021-12-15] MEDS ORDERED: SODIUM CHLORIDE 0.9% 500 ML 500 ML IV STA (23:41)
--- NOTE | 2021-12-15 23:48 | ED ---
Abdominal Pain HPI - General Chief Complaint: Abdominal Pain Stated Complaint: Abd pain,vomiting,muscle spams Time Seen by Provider: 12/15/21 23:25 Source: patient Mode of arrival: ambulatory - Related Data Home Medications Medication Instructions Recorded Confirmed Ibuprofen [Advil] 200 mg PO DAILY PRN 11/16/19 11/16/19 traMADol HCL 50 mg PO HS PRN 11/16/19 11/16/19 Previous Rx's Medication Instructions Recorded Famotidine [Pepcid] 20 mg PO BID #30 tab 11/19/19 Furosemide [Lasix] 40 mg PO BID #60 tablet 11/19/19 Potassium Chloride ER [K-Dur 20] 20 meq PO DAILY #30 tab 11/19/19 Spironolactone [Aldactone] 100 mg PO DAILY #30 tab 11/19/19 Allergies Allergy/AdvReac Type Severity Reaction Status Date / Time No Known Allergies Allergy Verified 12/15/21 22:52 Review of Systems ROS Statement: Those systems with pertinent positive or pertinent negative responses have been documented in the HPI. ROS Other: All systems not noted in ROS Statement are negative. Past Medical History Additional Past Medical History / Comment(s): cirrhosis of the liver 2014 History of Any Multi-Drug Resistant Organisms: None Reported Past Surgical History: Orthopedic Surgery Additional Past Surgical History / Comment(s): 2020 fx hip/femur Past Anesthesia/Blood Transfusion Reactions: No Reported Reaction Past Psychological History: No Psychological Hx Reported Smoking Status: Former smoker Past Alcohol Use History: Occasional Past Drug Use History: Marijuana - Past Family History Father Additional Family Medical History / Comment(s): pt stated her father had lymphoma. Course Vital Signs 12/15/21 22:44 Temperature 98.5 F Pulse Rate 68 Respiratory 18 Rate Blood Pressure 101/73 O2 Sat by Pulse 98 Oximetry Medical Decision Making - Lab Data Result diagrams: 12/16/21 00:12 12/16/21 00:12 Lab Results 12/16/21 12/16/21 12/16/21 Range/Units 00:12 00:12 00:12 WBC 6.0 (3.8-10.6) k/uL RBC 3.19 L (3.80-5.40) m/uL Hgb 12.8 (11.4-16.0) gm/dL Hct 36.6 (34.0-46.0) % MCV 114.6 H (80.0-100.0) fL MCH 40.0 H (25.0-35.0) pg MCHC 34.9 (31.0-37.0) g/dL RDW 15.5 (11.5-15.5) % MPV 10.0 Macrocytosis Marked A PT (9.0-12.0) sec INR (<1.2) APTT (22.0-30.0) sec Sodium 136 L (137-145) mmol/L Potassium 3.9 (3.5-5.1) mmol/L Chloride 102 (98-107) mmol/L Carbon Dioxide 23 (22-30) mmol/L Anion Gap 11 mmol/L BUN 17 (7-17) mg/dL Creatinine 0.85 (0.52-1.04) mg/dL Est GFR (CKD-EPI)AfAm 82 (>60 ml/min/1.73 sqM) Est GFR (CKD-EPI)NonAf 71 (>60 ml/min/1.73 sqM) Glucose 139 H (74-99) mg/dL Calcium 9.4 (8.4-10.2) mg/dL Total Bilirubin 10.6 H (0.2-1.3) mg/dL AST 102 H (14-36) U/L ALT 76 H (4-34) U/L Alkaline Phosphatase 92 (38-126) U/L Ammonia <9 (<30) umol/L Total Protein 7.5 (6.3-8.2) g/dL Albumin 4.6 (3.5-5.0) g/dL Amylase 42 (30-110) U/L Lipase 140 (23-300) U/L /01/30 Range/Units 00:12 WBC (3.8-10.6) k/uL RBC (3.80-5.40) m/uL Hgb (11.4-16.0) gm/dL Hct (34.0-46.0) % MCV (80.0-100.0) fL MCH (25.0-35.0) pg MCHC (31.0-37.0) g/dL RDW (11.5-15.5) % MPV Macrocytosis PT 13.0 H (9.0-12.0) sec INR 1.2 H (<1.2) APTT 25.7 (22.0-30.0) sec Sodium (137-145) mmol/L Potassium (3.5-5.1) mmol/L Chloride (98-107) mmol/L Carbon Dioxide (22-30) mmol/L Anion Gap mmol/L BUN (7-17) mg/dL Creatinine (0.52-1.04) mg/dL Est GFR (CKD-EPI)AfAm (>60 ml/min/1.73 sqM) Est GFR (CKD-EPI)NonAf (>60 ml/min/1.73 sqM) Glucose (74-99) mg/dL Calcium (8.4-10.2) mg/dL Total Bilirubin (0.2-1.3) mg/dL AST (14-36) U/L ALT (4-34) U/L Alkaline Phosphatase (38-126) U/L Ammonia (<30) umol/L Total Protein (6.3-8.2) g/dL Albumin (3.5-5.0) g/dL Amylase (30-110) U/L Lipase (23-300) U/L Disposition Clinical Impression: Ascites, Abdominal pain Disposition: ADMITTED IP TO THIS HOSP Condition: Good Is patient prescribed a controlled substance at d/c from ED?: No Referrals: Pastora Lynch MD [Primary Care Provider] - 1-2 days
[2021-12-16 00:46] LABS: INR 1.2 (<1.2); Partial Thromboplastin Time 25.7 sec (22.0-30.0)
[2021-12-16 00:50] LABS: Albumin 4.6 g/dL (3.5-5.0); Calcium 9.4 mg/dL (8.4-10.2); Potassium 3.9 mmol/L (3.5-5.1); Total Bilirubin 10.6 mg/dL (0.2-1.3); Total Protein 7.5 g/dL (6.3-8.2)
[2021-12-16 01:02] LABS: Basophils % (A) 0 %; Eosinophils % (A) 0 %; HCT 36.6 % (34.0-46.0); HGB 12.8 gm/dL (11.4-16.0); Lymphocytes # (A) 0.5 k/uL (1.0-4.8); Lymphocytes % (A) 8 %; MCHC 34.9 g/dL (31.0-37.0); MCV 114.6 fL (80.0-100.0); Macrocytosis Marked; Monocytes # (A) 0.3 k/uL (0-1.0); Monocytes % (A) 4 %; Neutrophils # (A) 5.2 k/uL (1.3-7.7); Neutrophils % (A) 87 %; RBC 3.19 m/uL (3.80-5.40); RDW 15.5 % (11.5-15.5)
[2021-12-16] MEDS ORDERED: HYDROmorphone 1 MG/ML 1 ML SYRINGE IVP STA (03:07)
[2021-12-16 05:47] LABS: Platelet Count 64 k/uL (150-450)
--- NOTE | 2021-12-16 08:24 | US ---
EXAMINATION TYPE: US abdomen limited DATE OF EXAM: 12/16/2021 COMPARISON: CT abdomen August 23, 2021 CLINICAL HISTORY: ASCITES. Pain and swelling. Cirrhosis. No significant fluid visualized in scanning the bilateral upper and lower quadrants and midline. IMPRESSION: No drainable ascites.
[2021-12-16] MEDS ORDERED: polyethylene glycoL 3350 17 GM POWD.PACK PO PRN (12:19)
[2021-12-16] MEDS: MAGNESIUM OXIDE 400 MG TAB PO SCH (12:56)
[2021-12-16] MEDS: FUROSEMIDE 40 MG TAB PO SCH (12:56)
--- NOTE | 2021-12-16 13:24 | P.HPIM ---
History of Present Illness H&P Date: 12/16/21 Tanja Lea, is a 66-year-old female who presented to [facility] emergency room with a chief complaint of abdominal pain nausea and vomiting, patient describes severe epigastric pain radiating to the back with some muscle spasms and episodes of nausea and vomiting she was evaluated in the emergency room vital examination on presentation revealed a temperature of 98.5 pulse 68 respiration 18 blood pressure 101/73 pulse ox 98% on room air Laboratory data revealed a white blood count of 6.0 hemoglobin 12.8 platelet count 64 sodium 136 potassium 3.9 chloride 102 CO2 23 BUN 17 creatinine 0.85 total bilirubin 10.6, AST 102 ALT 76 alkaline phosphatase 92 amylase 42 lipase 140 Testing in the emergency room, no testing was done in the emergency room, it was presumed that patient has Ascites and needs paracentesis. However patient had a computed tomography scan in August 2021 that revealed multiple gallstones. Patient was admitted to medical floor for further evaluation and treatment Past medical history is significant for history of liver cirrhosis diagnosed in 2014, history of excessive alcohol use in the past, she also has a history of hip fracture in 2019 with surgery. On review of systems patient is complaining of epigastric pain radiating to the back, complaining of episodes of nausea and vomiting otherwise no complaints there is no fever or chills no headache or dizziness no chest pain no shortness of breath no cough, no diarrhea no blood in the stools no burning with urination no frequency or urgency no hematuria, no weakness or numbness in any of the ex tremities no change in vision speech or gait. Past Medical History Additional Past Medical History / Comment(s): cirrhosis of the liver 2014 History of Any Multi-Drug Resistant Organisms: None Reported Past Surgical History: Orthopedic Surgery Additional Past Surgical History / Comment(s): 2019 fx hip/femur Past Anesthesia/Blood Transfusion Reactions: No Reported Reaction Past Psychological History: No Psychological Hx Reported Smoking Status: Former smoker Past Alcohol Use History: Occasional Additional Past Alcohol Use History / Comment(s): pt reported 4 glasses of wine a day. stopped drinking in 2014 but restarted in 2018. Last reported drink in august of 2019. Past Drug Use History: Marijuana - Past Family History Father Additional Family Medical History / Comment(s): pt stated her father had lymphoma. Medications and Allergies Home Medications Medication Instructions Recorded Confirmed Type Biotin 5 mg PO DAILY 12/16/21 12/16/21 History Cognium 1 tab PO DAILY 12/16/21 12/16/21 History Furosemide [Lasix] 40 mg PO DAILY 12/16/21 12/16/21 History Magnesium Oxide [Mag-Ox] 400 mg PO DAILY 12/16/21 12/16/21 History Multivit-Min/Folic Acid/Rfq644 1 tab PO DAILY 12/16/21 12/16/21 History [Alive Premium Adult Multivit] Potassium Gluconate [Potassium 99 mg PO DAILY 12/16/21 12/16/21 History Gluconate ER] Spironolactone 50 mg PO DAILY 12/16/21 12/16/21 History polyethylene glycoL 3350 [Miralax] 17 gm PO DAILY PRN 12/16/21 12/16/21 History Allergies Allergy/AdvReac Type Severity Reaction Status Date / Time No Known Allergies Allergy Verified 12/16/21 08:13 Physical Exam Vitals: Vital Signs Temp Pulse Pulse Resp BP BP Pulse Ox 12/16/21 07:00 97.7 F 58 L 14 116/44 91 L 12/16/21 05:05 98.1 F 61 16 121/69 96 12/16/21 03:27 63 16 144/80 97 12/15/21 22:44 98.5 F 68 18 101/73 98 Intake and Output 12/15/21 12/16/21 12/16/21 22:59 06:59 14:59 Intake Total 118 Balance 118 Intake: Oral 118 Other: Voiding Method Toilet Toilet # Voids 0 Weight 86.183 kg 86.183 kg In general patient is alert and oriented x 3 in no distress HEENT head normocephalic and atraumatic, there is scleral icterus Neck is supple no JVD no goiter no lymphadenopathy no carotid bruit Chest examination is clear to auscultation no crackles no wheezing Cardiac exam reveals regular heart sounds S1 and S2 no gallops no murmurs Abdomen is soft with tenderness in the epigastric and right upper quadrant areas no rigidity or rebound, liver slightly enlarged Extremity exam reveals no edema no cyanosis or clubbing Neurological examination reveals no gross focal deficits Results CBC & Chem 7: 12/16/21 00:12 12/16/21 00:12 Labs: Abnormal Lab Results - Last 24 Hours (Table) 12/16/21 12/16/21 12/16/21 Range/Units 00:12 00:12 00:12 RBC 3.19 L (3.80-5.40) m/uL MCV 114.6 H (80.0-100.0) fL MCH 40.0 H (25.0-35.0) pg Plt Count 64 L (150-450) k/uL Lymphocytes # 0.5 L (1.0-4.8) k/uL Macrocytosis Marked A PT 13.0 H (9.0-12.0) sec INR 1.2 H (<1.2) Sodium 136 L (137-145) mmol/L Glucose 139 H (74-99) mg/dL Total Bilirubin 10.6 H (0.2-1.3) mg/dL AST 102 H (14-36) U/L ALT 76 H (4-34) U/L Assessment and Plan Plan: Abdominal pain nausea and vomiting History of liver cirrhosis diagnosed in 2014 History of excessive alcohol use, patient quit in 2018 History of multiple gallstones on computed tomography scan in August 2021 At this time patient is admitted to medical floor Ultrasound of the abdomen was ordered and revealed no significant ascites fluid Computed tomography scan of the abdomen and pelvis was ordered to assess cause of abdominal pain and vomiting Consultation for Dr. Michele was initiated For DVT prophylaxis subcu Lovenox for GI prophylaxis Protonix Will follow closely
[2021-12-16] MEDS ORDERED: PANTOPRAZOLE 40 MG/10 ML VIAL IVP SCH (13:30)
[2021-12-16] MEDS: IOPAMIDOL CONTRAST (ORAL USE) VIAL PO PRN ×2 (13:52→14:53)
[2021-12-16] MEDS: ENOXAPARIN 40 MG/0.4 ML SYRINGE SQ SCH (13:52)
--- NOTE | 2021-12-16 14:31 | P.GSCN ---
History of Present Illness Consult date: 12/16/21 History of present illness: CHIEF COMPLAINT: Abdominal pain with nausea and vomiting HISTORY OF PRESENT ILLNESS: This is a 66-year-old female with a known history of gallstones. She presents to the emergency room with complaints of abdominal pain and nausea and vomiting 2 days. Patient reports the pain is across the upper abdomen right upper quadrant radiates into the back and shoulder. She has been nauseated. She has increase in nausea after eating. Patient reports poor oral intake. She had similar episodes of pain in nausea about a week ago. She also has a known history of alcoholic liver cirrhosis. She has required paracentesis in the past. Last paracentesis in November 2019. Patient reports that she has had had not had any alcohol since August. She had evidence of gallstones on the computed tomography scan in August 2021. Abdominal ultrasound for ascites showed no drainable ascites. Patient's LFTs and total bilirubin are elevated. She has evidence of jaundice and dark urine. Patient denies any fevers, chills, sweats. Patient has a computed tomography scan abdomen and pelvis ordered for this afternoon. Surgical consult placed for abdominal pain and vomiting. Patient reports having normal bowel movements. PAST MEDICAL HISTORY: Alcoholic liver cirrhosis with portal hypertension, abdominal ascites requiring 2 paracentesis the past. Last paracentesis November 2019 PAST SURGICAL HISTORY: See list. MEDICATIONS: See list. ALLERGIES: See list. SOCIAL HISTORY: No illicit drug use. REVIEW OF SYSTEMS: CONSTITUTIONAL: Denies fever or chills. HEENT: Denies blurred vision, vision changes, or eye pain. Denies hemoptysis CARDIOVASCULAR: Denies chest pain or pressure. RESPIRATORY: No shortness of breath. GASTROINTESTINAL: See HPI for pertinent findings HEMATOLOGIC: Denies bleeding disorders. GENITOURINARY: Denies any blood in urine or increased urinary frequency. SKIN: Denies pruitis. Denies rash. PHYSICAL EXAM: VITAL SIGNS: Reviewed GENERAL: Well-developed in no acute distress. HEENT: Scleral icterus evident bilaterally. Extraocular movements grossly intact. Moist buccal mucosa. Head is atraumatic, normocephalic. No nasal drainage. ABDOMEN: Soft. mildly distended. Tenderness to palpation of the right upper q uadrant and epigastric area. Reducible umbilical hernia. NEUROLOGIC: Alert and oriented. Cranial nerves II through XII grossly intact. Skin: Jaundice LABORATORY DATA: WBC 6.0 Hgb 12.8 platelets 64 INR 1.2 Sodium 136 potassium 3.9 creatinine 0.85 Glucose 139 Calcium 9.4 Total bilirubin 10.6 AST 102 ALT 76 alk phos 92 Ammonia less than 9 Lipase 140 IMAGING: Abdominal ultrasound no drainable ascites ASSESSMENT: 1. Right upper quadrant and epigastric abdominal pain with nausea and vomiting 2. Cholelithiasis 3. Hyperbilirubinemia 4. Elevated LFTs 5. History of alcohol liver cirrhosis with portal hypertension PLAN: -Further recommendations forthcoming per surgeon -Follow up on computed tomography scan of abdomen and pelvis -Downgrade diet to clear liquids -Add Zofran -Continue IV fluids -Repeat CMP in a.m. Thank you for this consultation Physician Otolaryngology Rep note has been reviewed by physician. Signing provider agrees with the documented findings, assessment, and plan of care. Past Medical History Additional Past Medical History / Comment(s): cirrhosis of the liver 2014 History of Any Multi-Drug Resistant Organisms: None Reported Past Surgical History: Orthopedic Surgery Additional Past Surgical History / Comment(s): 2019 fx hip/femur Past Anesthesia/Blood Transfusion Reactions: No Reported Reaction Past Psychological History: No Psychological Hx Reported Smoking Status: Former smoker Past Alcohol Use History: Occasional Additional Past Alcohol Use History / Comment(s): pt reported 4 glasses of wine a day. stopped drinking in 2014 but restarted in 2018. Last reported drink in august of 2019. Past Drug Use History: Marijuana - Past Family History Father Additional Family Medical History / Comment(s): pt stated her father had lymphoma. Medications and Allergies Home Medications Medication Instructions Recorded Confirmed Type Biotin 5 mg PO DAILY 12/16/21 12/16/21 History Cognium 1 tab PO DAILY 12/16/21 12/16/21 History Furosemide [Lasix] 40 mg PO DAILY 12/16/21 12/16/21 History Magnesium Oxide [Mag-Ox] 400 mg PO DAILY 12/16/21 12/16/21 History Multivit-Min/Folic Acid/Nhu537 1 tab PO DAILY 12/16/21 12/16/21 History [Alive Premium Adult Multivit] Potassium Gluconate [Potassium 99 mg PO DAILY 12/16/21 12/16/21 History Gluconate ER] Spironolactone 50 mg PO DAILY 12/16/21 12/16/21 History polyethylene glycoL 3350 [Miralax] 17 gm PO DAILY PRN 12/16/21 12/16/21 History Allergies Allergy/AdvReac Type Severity Reaction Status Date / Time No Known Allergies Allergy Verified 12/16/21 08:13 Surgical - Exam Vital Signs Temp Pulse Resp BP Pulse Ox 98.5 F 68 18 101/73 98 12/15/21 22:44 12/15/21 22:44 12/15/21 22:44 12/15/21 22:44 12/15/21 22:44 Results - Labs 12/16/21 00:12 12/16/21 00:12 Abnormal Lab Results - Last 24 Hours (Table) 12/16/21 12/16/21 12/16/21 Range/Units 00:12 00:12 00:12 RBC 3.19 L (3.80-5.40) m/uL MCV 114.6 H (80.0-100.0) fL MCH 40.0 H (25.0-35.0) pg Plt Count 64 L (150-450) k/uL Lymphocytes # 0.5 L (1.0-4.8) k/uL Macrocytosis Marked A PT 13.0 H (9.0-12.0) sec INR 1.2 H (<1.2) Sodium 136 L (137-145) mmol/L Glucose 139 H (74-99) mg/dL Total Bilirubin 10.6 H (0.2-1.3) mg/dL AST 102 H (14-36) U/L ALT 76 H (4-34) U/L Diabetes panel 12/16/21 Range/Units 00:12 Sodium 136 L (137-145) mmol/L Potassium 3.9 (3.5-5.1) mmol/L Chloride 102 (98-107) mmol/L Carbon Dioxide 23 (22-30) mmol/L BUN 17 (7-17) mg/dL Creatinine 0.85 (0.52-1.04) mg/dL Glucose 139 H (74-99) mg/dL Calcium 9.4 (8.4-10.2) mg/dL AST 102 H (14-36) U/L ALT 76 H (4-34) U/L Alkaline Phosphatase 92 (38-126) U/L Total Protein 7.5 (6.3-8.2) g/dL Albumin 4.6 (3.5-5.0) g/dL Calcium panel 12/16/21 Range/Units 00:12 Calcium 9.4 (8.4-10.2) mg/dL Albumin 4.6 (3.5-5.0) g/dL Pituitary panel 12/16/21 Range/Units 00:12 Sodium 136 L (137-145) mmol/L Potassium 3.9 (3.5-5.1) mmol/L Chloride 102 (98-107) mmol/L Carbon Dioxide 23 (22-30) mmol/L BUN 17 (7-17) mg/dL Creatinine 0.85 (0.52-1.04) mg/dL Glucose 139 H (74-99) mg/dL Calcium 9.4 (8.4-10.2) mg/dL Adrenal panel 12/16/21 Range/Units 00:12 Sodium 136 L (137-145) mmol/L Potassium 3.9 (3.5-5.1) mmol/L Chloride 102 (98-107) mmol/L Carbon Dioxide 23 (22-30) mmol/L BUN 17 (7-17) mg/dL Creatinine 0.85 (0.52-1.04) mg/dL Glucose 139 H (74-99) mg/dL Calcium 9.4 (8.4-10.2) mg/dL Total Bilirubin 10.6 H (0.2-1.3) mg/dL AST 102 H (14-36) U/L ALT 76 H (4-34) U/L Alkaline Phosphatase 92 (38-126) U/L Total Protein 7.5 (6.3-8.2) g/dL Albumin 4.6 (3.5-5.0) g/dL
--- NOTE | 2021-12-16 16:50 | CT ---
EXAMINATION TYPE: CT abdomen pelvis w con DATE OF EXAM: 12/16/2021 COMPARISON: CT abdomen 08/23/2021 HISTORY: 66-year-old female abdominal pain. Ascites. TECHNIQUE: Contiguous axial scanning of the abdomen and pelvis following administration of 100 ml Iso vivek 300 IV contrast. Delayed images through the kidneys and coronal/sagittal reconstructions perform ed. CT DLP: 1481.20 mGycm Automated exposure control for dose reduction was used. FINDINGS: Heart upper limits of normal in size without pericardial effusion. LAD coronary artery calcifications . Small right pleural effusion. Mild septal lines in the lower lungs. A 4 mm pulmonary nodules in the right lower lobe. Small hiatal hernia. Liver borderline in size at 17.3 cm increased from 16.2 cm previously. Subtle contour nodularity of t he liver, for example, axial image 41. Correlation will be needed for underlying cirrhosis. Large caliber to the main portal vein at 1.9 cm as well as the splenic vein at 1.8 cm. There is no ev ident thrombosis. The gallbladder is hydropic measuring up to 5.5 cm wide. Gravel/tiny layering stones are present. The re may be some calcification along the left lateral wall of the gallbladder. Underlying choledocholit hiasis within the distal duct with a few tiny stones noted extending to the ampulla. Bile duct is dil ated now at 1 cm, increased from prior. There is splenomegaly stable at 19.8 cm measured on coronal series. Adrenal glands and pancreas show no gross abnormality. Mild generalized anasarca change. Some mild retroperitoneal fluid adjacent to the tail of the pancrea s extending inferiorly. Trace perihepatic ascites. Mildly lobulated 6 cm cyst lateral right kidney redemonstrated. There may be some thin internal septa tions. Symmetric uptake and excretion of contrast from the kidneys. No dilated small bowel or free air. Oral contrast progressed to the distal transverse colon. Mild ove rall stool. Normal appendix. Sigmoid diverticulosis. No perisplenic inflammatory change. Mild to moderate atherosclerotic calcifications infrarenal abdominal aorta. Bladder partially distended. Uterus is anteverted. Fundal calcification measuring 2.5 cm suggestive o f an underlying fibroid that appears primarily intramural. Both ovaries are visualized. Trace right a dnexal free fluid. No pelvic lymphadenopathy. Bones: Antegrade intramedullary nail with hip screw fixation on the left. Mild degenerative change of both hips. Superior endplate deformities of L3-L5 levels remain unchanged. Severe endplate Schmorl's node of T11 also unchanged. Facet arthropathy throughout the lumbar spine. IMPRESSION: 1. EVIDENCE OF CIRRHOSIS WITH PORTAL VENOUS HYPERTENSION (ENLARGED PORTAL AND SPLENIC VEIN, TRACE PER IHEPATIC AND RIGHT ADNEXAL ASCITES, AND SPLENOMEGALY AT 19.8 CM). 2. NEWLY HYDROPIC GALLBLADDER WITH KNOWN SMALL CALCULI/GRAVEL. THE BILE DUCT IS NOW ALSO DILATED UP T O 1 CM AND THERE APPEARS TO BE NUMEROUS SMALL STONES IN THE DISTAL BILE DUCT. CORRELATE WITH ALKALINE PHOSPHATASE AND BILIRUBIN LEVELS FOR SUSPECTED BILIARY OBSTRUCTION. 3. WHILE THE PANCREAS APPEARS NORMAL BY CT, THERE IS SOME RETROPERITONEAL EDEMA ADJACENT TO THE TAIL OF THE PANCREAS. CORRELATE WITH AMYLASE AND LIPASE LEVELS TO EXCLUDE AN EARLY ACUTE INTERSTITIAL PANC REATITIS. 4. SMALL RIGHT SIDED PLEURAL EFFUSION. SOME MILD SEPTAL LINES IN THE LOWER LUNGS COULD REFLECT SOME F IBROSIS. CORRELATE TO EXCLUDE MILD PULMONARY VASCULAR CONGESTION. 5. SMALL HIATAL HERNIA. FIBROID UTERUS. SIGMOID DIVERTICULOSIS. OLD SUPERIOR ENDPLATE DEFORMITIES OF L3-L5. DR. STORM NOTIFIED OF IMPRESSION POINT #2 BY PERFECT SERVE TEXT.
[2021-12-16] MEDS: HYDROcodone/APAP 5-325MG 1 EACH TAB PO PRN (20:50)
[2021-12-17] MEDS: HYDROmorphone 1 MG/ML 1 ML SYRINGE IVP PRN ×3 (03:17→20:34)
[2021-12-17] MEDS: FUROSEMIDE 40 MG TAB PO SCH (07:38)
[2021-12-17] MEDS: MAGNESIUM OXIDE 400 MG TAB PO SCH (07:38)
[2021-12-17] MEDS: ENOXAPARIN 40 MG/0.4 ML SYRINGE SQ SCH (07:38)
[2021-12-17] MEDS: PANTOPRAZOLE 40 MG TABLET PO SCH (07:38)
[2021-12-17] MEDS: ONDANSETRON 4 MG/2 ML VIAL IVP PRN ×2 (07:38→20:34)
[2021-12-17] MEDS: SPIRONOLACTONE 25 MG TAB PO SCH (07:38)
[2021-12-17] MEDS: MULTIVITAMINS, THERA 1 EACH TAB PO SCH (07:38)
[2021-12-17 09:30] LABS: HCT 32.7 % (37.2-46.3); HGB 10.8 g/dL (12.0-15.0); MCH 37.2 pg (27.0-32.0); MCV 112.8 fL (80.0-97.0); Mean Platelet Volume 13.1 fL (9.5-12.2); NRBC Per 100 WBC 0 /100 WBCS (0.0-0.0); Platelet Count 43 X 10*3/uL (140-440); RDW 14.7 % (11.5-14.5); WBC 3.64 X 10*3/uL (4.50-10.00)
--- NOTE | 2021-12-17 09:33 | P.GSCN ---
History of Present Illness Consult date: 12/17/21 Reason for Consult: Cholecystitis History of present illness: 66-year-old female came to the hospital complaining of upper abdominal pain that radiated to the back. Patient felt dizzy as well. Patient was thought to possibly have ascites because of abdominal bloating well an ultrasound was performed which showed gallstones but no fluid. CAT scan was then performed yesterday showing gallstones with a distended gallbladder. There may be some small stones in the distal common bile duct which is distended. Patient's bilirubin is over 10 however the patient has a history of known cirrhosis and follows with GI as an outpatient for that. No nausea or vomiting. Review of Systems The patient denies any acute changes in vision or hearing, no dysphagia or odynophagia, no chest pain or shortness of breath, no dysuria or hematuria, no headache, no runny nose, no rectal bleeding or melena, no unexplained weight loss Past Medical History Additional Past Medical History / Comment(s): cirrhosis of the liver 2014 History of Any Multi-Drug Resistant Organisms: None Reported Past Surgical History: Orthopedic Surgery Additional Past Surgical History / Comment(s): 2020 fx hip/femur Past Anesthesia/Blood Transfusion Reactions: No Reported Reaction Past Psychological History: No Psychological Hx Reported Smoking Status: Former smoker Past Alcohol Use History: Occasional Additional Past Alcohol Use History / Comment(s): pt reported 4 glasses of wine a day. stopped drinking in 2014 but restarted in 2018. Last reported drink in august of 2019. Past Drug Use History: Marijuana - Past Family History Father Additional Family Medical History / Comment(s): pt stated her father had lymphoma. Medications and Allergies Home Medications Medication Instructions Recorded Confirmed Type Biotin 5 mg PO DAILY 12/16/21 12/16/21 History Cognium 1 tab PO DAILY 12/16/21 12/16/21 History Furosemide [Lasix] 40 mg PO DAILY 12/16/21 12/16/21 History Magnesium Oxide [Mag-Ox] 400 mg PO DAILY 12/16/21 12/16/21 History Multivit-Min/Folic Acid/Lhp392 1 tab PO DAILY 12/16/21 12/16/21 History [Alive Premium Adult Multivit] Potassium Gluconate [Potassium 99 mg PO DAILY 12/16/21 12/16/21 History Gluconate ER] Spironolactone 50 mg PO DAILY 12/16/21 12/16/21 History polyethylene glycoL 3350 [Miralax] 17 gm PO DAILY PRN 12/16/21 12/16/21 History Allergies Allergy/AdvReac Type Severity Reaction Status Date / Time No Known Allergies Allergy Verified 12/16/21 08:13 Surgical - Exam Vital Signs Temp Pulse Resp BP Pulse Ox 98.5 F 68 18 101/73 98 12/15/21 22:44 12/15/21 22:44 12/15/21 22:44 12/15/21 22:44 12/15/21 22:44 Physical exam: General: Well-developed, well-nourished HEENT: Normocephalic, sclerae nonicteric Abdomen: Mild epigastric tenderness, mild distention Extremities: No edema Neuro: Alert and oriented Results - Labs 12/17/21 04:59 12/16/21 00:12 Abnormal Lab Results - Last 24 Hours (Table) 12/17/21 Range/Units 04:59 WBC 3.64 L (4.50-10.00) X 10*3/uL RBC 2.90 L (4.10-5.20) X 10*6/uL Hgb 10.8 L (12.0-15.0) g/dL Hct 32.7 L (37.2-46.3) % MCV 112.8 H (80.0-97.0) fL MCH 37.2 H (27.0-32.0) pg RDW 14.7 H (11.5-14.5) % Plt Count 43 L (140-440) X 10*3/uL MPV 13.1 H (9.5-12.2) fL Assessment and Plan (1) Abdominal pain Narrative/Plan: 66-year-old female with complaints of upper abdominal pain and CAT scan findings as described. Possible choledocholithiasis on CAT scan. Recommend transfer to tertiary care center for appropriate GI management. Patient with significant portal hypertension on CAT scan. Certainly a significant surgical risk of perioperative morbidity and mortality if cholecystectomy is planned. Favor patient have definitive surgery if needed at the tertiary care center as well. Current Visit: Yes Status: Acute Code(s): R10.9 - UNSPECIFIED ABDOMINAL PAIN SNOMED Code(s): 54670800
[2021-12-17 09:44] LABS: African American GFR (CKD) 87.8 (60.0-200.0); Albumin 3.9 g/dL (3.8-4.9); Albumin/Globulin Ratio 2.17 (1.60-3.17); Anion Gap 12.3 mmol/L (10.00-18.00); BUN/Creat Ratio 15.25 Ratio (12.00-20.00); Blood Urea Nitrogen 12.2 mg/dL (9.0-27.0); Calcium 8.4 mg/dL (8.7-10.3); Carbon Dioxide 22.7 mmol/L (20.0-27.5); Globulin 1.8 g/dL (1.6-3.3); Non-African American GFR(CKD) 75.8 (60.0-200.0); Potassium 3.6 mmol/L (3.5-5.5); Total Bilirubin 9.1 mg/dL (0.30-1.20); Total Protein 5.7 g/dL (6.2-8.2)
[2021-12-17 10:51] LABS: Basophils # (A) 0.01 X 10*3/uL (0.00-0.10); Basophils % (A) 0.3 %; Eosinophils # (A) 0.01 X 10*3/uL (0.04-0.35); Eosinophils % (A) 0.3 %; Immature Grans, Automated 0.3 %; Immature Platelet Fraction 10.9 % (1.1-6.1); Lymphocytes # (A) 0.36 X 10*3/uL (0.90-5.00); Lymphocytes % (A) 9.9 %; Macrocytosis (M) 2+; Monocytes # (A) 0.15 X 10*3/uL (0.20-1.00); Monocytes % (A) 4.1 %; Neutrophils % (A) 85.1 %
--- NOTE | 2021-12-17 12:27 | P.PN ---
Subjective Progress Note Date: 12/17/21 Tanja Lea, is a 66-year-old female who presented to [facility] emergency room with a chief complaint of abdominal pain nausea and vomiting, patient describes severe epigastric pain radiating to the back with some muscle spasms and episodes of nausea and vomiting she was evaluated in the emergency room vital examination on presentation revealed a temperature of 98.5 pulse 68 respiration 18 blood pressure 101/73 pulse ox 98% on room air Laboratory data revealed a white blood count of 6.0 hemoglobin 12.8 platelet count 64 sodium 136 potassium 3.9 chloride 102 CO2 23 BUN 17 creatinine 0.85 total bilirubin 10.6, AST 102 ALT 76 alkaline phosphatase 92 amylase 42 lipase 140 Testing in the emergency room, no testing was done in the emergency room, it was presumed that patient has Ascites and needs paracentesis. However patient had a computed tomography scan in August 2021 that revealed multiple gallstones. Patient was admitted to medical floor for further evaluation and treatment Past medical history is significant for history of liver cirrhosis diagnosed in 2014, history of excessive alcohol use in the past, she also has a history of hip fracture in 2019 with surgery. On review of systems patient is complaining of epigastric pain radiating to the back, complaining of episodes of nausea and vomiting otherwise no complaints there is no fever or chills no headache or dizziness no chest pain no shortness of breath no cough, no diarrhea no blood in the stools no burning with urination no frequency or urgency no hematuria, no weakness or numbness in any of the extremities no change in vision speech or gait. On 12/17/2021 patient was seen and examined on the telemetry floor he is alert and oriented 3 in no apparent distress she is complaining of abdominal pain and nausea otherwise she denies any complaints there is no fever or chills no headache or dizziness no chest pain no shortness of breath no cough no vomiting no diarrhea no blood in the stools no burning with urination no frequency or urgency and no hematuria computed tomography scan of the abdomen and pelvis reviewed recommendation by surgery is to transfer to a tertiary care center for ERCP and cholecystectomy, patient case manager Farnaz informed she is starting contacts to arrange for transfer. Objective - Vital Signs Vital signs: Vital Signs Temp 97.5 F L 12/17/21 07:26 Pulse 60 12/17/21 07:26 Resp 18 12/17/21 07:26 BP 115/63 12/17/21 07:26 Pulse Ox 97 12/17/21 07:26 FiO2 Intake & Output 12/16/21 12/17/21 12/17/21 18:59 06:59 18:59 Intake Total 354 Balance 354 Intake: Oral 354 Other: Voiding Method Toilet Toilet Toilet # Voids 2 1 - Exam In general patient is alert and oriented x 3 in no distress HEENT head normocephalic and atraumatic, there is scleral icterus Neck is supple no JVD no goiter no lymphadenopathy no carotid bruit Chest examination is clear to auscultation no crackles no wheezing Cardiac exam reveals regular heart sounds S1 and S2 no gallops no murmurs Abdomen is soft with tenderness in the epigastric and right upper quadrant areas no rigidity or rebound, liver slightly enlarged Extremity exam reveals no edema no cyanosis or clubbing Neurological examination reveals no gross focal deficits - Labs CBC & Chem 7: 12/17/21 04:59 12/17/21 04:59 Labs: Abnormal Lab Results - Last 24 Hours (Table) 12/17/21 12/17/21 Range/Units 04:59 04:59 WBC 3.64 L (4.50-10.00) X 10*3/uL RBC 2.90 L (4.10-5.20) X 10*6/uL Hgb 10.8 L (12.0-15.0) g/dL Hct 32.7 L (37.2-46.3) % MCV 112.8 H (80.0-97.0) fL MCH 37.2 H (27.0-32.0) pg RDW 14.7 H (11.5-14.5) % Plt Count 43 L (140-440) X 10*3/uL Plt Count Comment A MPV 13.1 H (9.5-12.2) fL Lymphocytes # 0.36 L (0.90-5.00) X 10*3/uL Monocytes # 0.15 L (0.20-1.00) X 10*3/uL Eosinophils # 0.01 L (0.04-0.35) X 10*3/uL Immature Plt Fraction 10.9 H (1.1-6.1) % Glucose 145 H (70-110) mg/dL Calcium 8.4 L (8.7-10.3) mg/dL Total Bilirubin 9.10 H (0.30-1.20) mg/dL AST 70 H (13-35) U/L ALT 67 H (8-44) U/L Total Protein 5.7 L (6.2-8.2) g/dL Assessment and Plan Plan: Abdominal pain nausea and vomiting History of liver cirrhosis diagnosed in 2014 History of excessive alcohol use, patient quit in 2018 History of multiple gallstones on computed tomography scan in August 2021 At this time patient is admitted to medical floor Ultrasound of the abdomen was ordered and revealed no significant ascites fluid Computed tomography scan of the abdomen and pelvis was ordered to assess cause of abdominal pain and vomiting Consultation for Dr. Michele was initiated For DVT prophylaxis subcu Lovenox for GI prophylaxis Protonix Will follow closely
--- NOTE | 2021-12-17 14:57 | P.PN ---
Progress Note - Text Progress Note Date: 12/17/21 Follow-up note on Tanja Lea, Per Dr. Lemus recommendation patient needs to be transferred to [facility] [employer] hatcher[employer] manager Farnaz contacted transfer team at [facility] Later on I was contacted by the transfer team and by the accepting physician case discussed and was accepted at [facility] Now awaiting bed availability Continue with current management
[2021-12-18] MEDS: ENOXAPARIN 40 MG/0.4 ML SYRINGE SQ SCH (07:44)
[2021-12-18] MEDS: MULTIVITAMINS, THERA 1 EACH TAB PO SCH (07:45)
[2021-12-18] MEDS: FUROSEMIDE 40 MG TAB PO SCH (07:45)
[2021-12-18] MEDS: PANTOPRAZOLE 40 MG TABLET PO SCH (07:45)
[2021-12-18] MEDS: SPIRONOLACTONE 25 MG TAB PO SCH (07:45)
[2021-12-18] MEDS: MAGNESIUM OXIDE 400 MG TAB PO SCH (07:45)
[2021-12-18] MEDS: ONDANSETRON 4 MG/2 ML VIAL IVP PRN ×3 (07:56→21:49)
[2021-12-18] MEDS: HYDROcodone/APAP 5-325MG 1 EACH TAB PO PRN ×2 (07:56→15:28)
--- NOTE | 2021-12-18 09:57 | P.PN ---
Subjective Progress Note Date: 12/18/21 Principal diagnosis: Abdominal pain Patient says she still is having abdominal pain. Mostly upper midline today. Labs noted. Patient has been accepted for transfer to [facility] for GI evaluation. Waiting on of bed assignment. Objective - Vital Signs Vital signs: Vital Signs Temp 98.1 F 12/18/21 08:00 Pulse 67 12/18/21 08:00 Resp 18 12/18/21 08:00 BP 117/62 12/18/21 08:00 Pulse Ox 94 L 12/18/21 08:00 FiO2 Intake & Output 12/17/21 12/18/21 12/18/21 18:59 06:59 18:59 Intake Total 250 Balance 250 Intake: Oral 250 Other: Voiding Method Toilet # Voids 6 - Exam Abdomen: Soft, mild distention, mild epigastric tenderness - Labs CBC & Chem 7: 12/17/21 04:59 12/17/21 04:59 Labs: Abnormal Lab Results - Last 24 Hours (Table) 12/17/21 Range/Units 04:59 Plt Count Comment A Lymphocytes # 0.36 L (0.90-5.00) X 10*3/uL Monocytes # 0.15 L (0.20-1.00) X 10*3/uL Eosinophils # 0.01 L (0.04-0.35) X 10*3/uL Immature Plt Fraction 10.9 H (1.1-6.1) % Assessment and Plan (1) Abdominal pain Narrative/Plan: Patient with upper abdominal pain and CAT scan suggesting possible choledocholithiasis. Await transfer [facility]. Current Visit: Yes Status: Acute Code(s): R10.9 - UNSPECIFIED ABDOMINAL PAIN SNOMED Code(s): 44485774
[2021-12-18 10:06] LABS: Basophils # (A) 0.02 X 10*3/uL (0.00-0.10); Basophils % (A) 0.6 %; Eosinophils # (A) 0.04 X 10*3/uL (0.04-0.35); Eosinophils % (A) 1.2 %; HCT 29.9 % (37.2-46.3); HGB 10.3 g/dL (12.0-15.0); Immature Grans, Automated 0.3 %; Immature Platelet Fraction 11.7 % (1.1-6.1); Lymphocytes # (A) 0.43 X 10*3/uL (0.90-5.00); MCH 38.1 pg (27.0-32.0); MCHC 34.4 g/dL (32.0-37.0); MCV 110.7 fL (80.0-97.0); Mean Platelet Volume 13.4 fL (9.5-12.2); Monocytes # (A) 0.17 X 10*3/uL (0.20-1.00); Monocytes % (A) 5.1 %; NRBC Per 100 WBC 0 /100 WBCS (0.0-0.0); Neutrophils # (A) 2.64 X 10*3/uL (1.80-7.70); Neutrophils % (A) 79.8 %; Platelet Count 38 X 10*3/uL (140-440); RDW 14.8 % (11.5-14.5); WBC 3.31 X 10*3/uL (4.50-10.00)
[2021-12-18 10:45] LABS: African American GFR (CKD) 87.4 (60.0-200.0); Albumin 3.7 g/dL (3.8-4.9); Albumin/Globulin Ratio 2.15 (1.60-3.17); BUN/Creat Ratio 13.45 Ratio (12.00-20.00); Blood Urea Nitrogen 10.8 mg/dL (9.0-27.0); Calcium 8.4 mg/dL (8.7-10.3); Carbon Dioxide 25.8 mmol/L (20.0-27.5); Globulin 1.7 g/dL (1.6-3.3); Non-African American GFR(CKD) 75.4 (60.0-200.0); Potassium 3.2 mmol/L (3.5-5.5); Total Bilirubin 9.5 mg/dL (0.30-1.20); Total Protein 5.4 g/dL (6.2-8.2)
--- NOTE | 2021-12-18 12:57 | P.PN ---
Subjective Progress Note Date: 12/18/21 Tanja Lea, is a 66-year-old female who presented to [facility] emergency room with a chief complaint of abdominal pain nausea and vomiting, patient describes severe epigastric pain radiating to the back with some muscle spasms and episodes of nausea and vomiting she was evaluated in the emergency room vital examination on presentation revealed a temperature of 98.5 pulse 68 respiration 18 blood pressure 101/73 pulse ox 98% on room air Laboratory data revealed a white blood count of 6.0 hemoglobin 12.8 platelet count 64 sodium 136 potassium 3.9 chloride 102 CO2 23 BUN 17 creatinine 0.85 total bilirubin 10.6, AST 102 ALT 76 alkaline phosphatase 92 amylase 42 lipase 140 Testing in the emergency room, no testing was done in the emergency room, it was presumed that patient has Ascites and needs paracentesis. However patient had a computed tomography scan in August 2021 that revealed multiple gallstones. Patient was admitted to medical floor for further evaluation and treatment Past medical history is significant for history of liver cirrhosis diagnosed in 2014, history of excessive alcohol use in the past, she also has a history of hip fracture in 2019 with surgery. On review of systems patient is complaining of epigastric pain radiating to the back, complaining of episodes of nausea and vomiting otherwise no complaints there is no fever or chills no headache or dizziness no chest pain no shortness of breath no cough, no diarrhea no blood in the stools no burning with urination no frequency or urgency no hematuria, no weakness or numbness in any of the extremities no change in vision speech or gait. On 12/17/2021 patient was seen and examined on the telemetry floor he is alert and oriented 3 in no apparent distress she is complaining of abdominal pain and nausea otherwise she denies any complaints there is no fever or chills no headache or dizziness no chest pain no shortness of breath no cough no vomiting no diarrhea no blood in the stools no burning with urination no frequency or urgency and no hematuria computed tomography scan of the abdomen and pelvis reviewed recommendation by surgery is to transfer to a tertiary care center for ERCP and cholecystectomy, transplant case manager Farnaz informed she is starting contacts to arrange for transfer. On 12/18/2021 patient was seen and examined on the telemetry floor she is alert and oriented 3 in no apparent distress she is still complaining of epigastric and right upper quadrant pain otherwise she denies any complaints there is no fever or chills no headache or dizziness no chest pain no shortness of breath no cough no nausea or vomiting no diarrhea no blood in the stools no burning with urination no frequency or urgency and no hematuria. Patient was accepted at [facility], awaiting bed opening to transfer to [facility]. Objective - Vital Signs Vital signs: Vital Signs Temp 98.1 F 12/18/21 08:00 Pulse 67 12/18/21 08:00 Resp 18 12/18/21 08:00 BP 117/62 12/18/21 08:00 Pulse Ox 94 L 12/18/21 08:00 FiO2 Intake & Output 12/17/21 12/18/21 12/18/21 18:59 06:59 18:59 Intake Total 250 Balance 250 Intake: Oral 250 Other: Voiding Method Toilet # Voids 6 - Exam In general patient is alert and oriented x 3 in no distress HEENT head normocephalic and atraumatic, there is scleral icterus Neck is supple no JVD no goiter no lymphadenopathy no carotid bruit Chest examination is clear to auscultation no crackles no wheezing Cardiac exam reveals regular heart sounds S1 and S2 no gallops no murmurs Abdomen is soft with tenderness in the epigastric and right upper quadrant areas no rigidity or rebound, liver slightly enlarged Extremity exam reveals no edema no cyanosis or clubbing Neurological examination reveals no gross focal deficits - Labs CBC & Chem 7: 12/18/21 04:39 12/18/21 04:39 Labs: Abnormal Lab Results - Last 24 Hours (Table) 12/18/21 12/18/21 Range/Units 04:39 04:39 WBC 3.31 L (4.50-10.00) X 10*3/uL RBC 2.70 L (4.10-5.20) X 10*6/uL Hgb 10.3 L (12.0-15.0) g/dL Hct 29.9 L (37.2-46.3) % MCV 110.7 H (80.0-97.0) fL MCH 38.1 H (27.0-32.0) pg RDW 14.8 H (11.5-14.5) % Plt Count 38 L (140-440) X 10*3/uL MPV 13.4 H (9.5-12.2) fL Lymphocytes # 0.43 L (0.90-5.00) X 10*3/uL Monocytes # 0.17 L (0.20-1.00) X 10*3/uL Immature Plt Fraction 11.7 H (1.1-6.1) % Sodium 133 L (135-145) mmol/L Potassium 3.2 L (3.5-5.5) mmol/L Glucose 114 H (70-110) mg/dL Calcium 8.4 L (8.7-10.3) mg/dL Total Bilirubin 9.50 H (0.30-1.20) mg/dL AST 56 H (13-35) U/L ALT 58 H (8-44) U/L Total Protein 5.4 L (6.2-8.2) g/dL Albumin 3.7 L (3.8-4.9) g/dL Assessment and Plan Plan: Abdominal pain nausea and vomiting History of liver cirrhosis diagnosed in 2014 History of excessive alcohol use, patient quit in 2018 History of multiple gallstones on computed tomography scan in August 2021 At this time patient is admitted to medical floor Ultrasound of the abdomen was ordered and revealed no significant ascites fluid Computed tomography scan of the abdomen and pelvis was ordered to assess cause of abdominal pain and vomiting Consultation for Dr. Michele was initiated For DVT prophylaxis subcu Lovenox for GI prophylaxis Protonix Will follow closely
[2021-12-18] MEDS: HYDROmorphone 1 MG/ML 1 ML SYRINGE IVP PRN (21:49)
[2021-12-19] MEDS: HYDROmorphone 1 MG/ML 1 ML SYRINGE IVP PRN (04:35)
[2021-12-19] MEDS: MAGNESIUM OXIDE 400 MG TAB PO SCH (08:49)
[2021-12-19] MEDS: SPIRONOLACTONE 25 MG TAB PO SCH (08:49)
[2021-12-19] MEDS: MULTIVITAMINS, THERA 1 EACH TAB PO SCH (08:50)
[2021-12-19] MEDS: ENOXAPARIN 40 MG/0.4 ML SYRINGE SQ SCH (08:50)
[2021-12-19] MEDS: PANTOPRAZOLE 40 MG TABLET PO SCH (08:50)
[2021-12-19] MEDS: FUROSEMIDE 40 MG TAB PO SCH (08:50)
[2021-12-19 09:14] LABS: Basophils # (A) 0.01 X 10*3/uL (0.00-0.10); Basophils % (A) 0.4 %; Eosinophils # (A) 0.04 X 10*3/uL (0.04-0.35); Eosinophils % (A) 1.5 %; HGB 9.8 g/dL (12.0-15.0); Immature Grans, Automated 0.4 %; Lymphocytes # (A) 0.46 X 10*3/uL (0.90-5.00); Lymphocytes % (A) 17.8 %; MCHC 33.8 g/dL (32.0-37.0); MCV 112.4 fL (80.0-97.0); Mean Platelet Volume 13.8 fL (9.5-12.2); Monocytes # (A) 0.14 X 10*3/uL (0.20-1.00); Monocytes % (A) 5.4 %; NRBC Per 100 WBC 0 /100 WBCS (0.0-0.0); Neutrophils # (A) 1.93 X 10*3/uL (1.80-7.70); Neutrophils % (A) 74.5 %; Platelet Count 37 X 10*3/uL (140-440); RBC 2.58 X 10*6/uL (4.10-5.20); RDW 14.8 % (11.5-14.5); WBC 2.59 X 10*3/uL (4.50-10.00)
[2021-12-19 09:42] LABS: African American GFR (CKD) 76.1 (60.0-200.0); Albumin 3.6 g/dL (3.8-4.9); Anion Gap 10.5 mmol/L (10.00-18.00); BUN/Creat Ratio 9.33 Ratio (12.00-20.00); Blood Urea Nitrogen 8.4 mg/dL (9.0-27.0); Calcium 8.4 mg/dL (8.7-10.3); Carbon Dioxide 26.5 mmol/L (20.0-27.5); Globulin 1.8 g/dL (1.6-3.3); Non-African American GFR(CKD) 65.7 (60.0-200.0); Potassium 3.3 mmol/L (3.5-5.5); Total Bilirubin 10.5 mg/dL (0.30-1.20); Total Protein 5.4 g/dL (6.2-8.2)
[2021-12-19] MEDS ORDERED: POTASSIUM CHLORIDE ER 20 MEQ TAB.ER PO STA (11:10)
--- NOTE | 2021-12-19 11:10 | P.PN ---
Subjective Progress Note Date: 12/19/21 CHIEF COMPLAINT: Abdominal pain HISTORY OF PRESENT ILLNESS: The patient reports that her pain is still the same in the right upper quadrant and epigastric area of the abdomen and radiating to the back. Patient seen by GI service for possible ERCP. Afebrile. WBC is 2.59 Hgb 9.8 platelets 37 sodium 135 potassium is 3.3 creatinine 0.9 total bilirubin is up from 9.5-10.5 AST 45 ALT 51 PHYSICAL EXAM: VITAL SIGNS: Reviewed. GENERAL: Well-developed in no acute distress. HEENT: Scleral icterus present. Extraocular movements grossly intact. Moist buccal mucosa. Head is atraumatic, normocephalic. ABDOMEN: Soft. Mild distention. Tenderness to palpation of the right upper quadrant and epigastric area NEUROLOGIC: Alert and oriented. Cranial nerves II through XII grossly intact. Skin: Jaundice ASSESSMENT: 1. Abdominal pain right upper quadrant and epigastric 2. Cholelithiasis 3. Possible choledocholithiasis 4. Hyperbilirubinemia 5. Liver cirrhosis with portal hypertension PLAN: -Patient being evaluated by GI service for possible ERCP -Continue supportive care -Continue clear liquids -Continue to monitor bilirubin level and LFTs -Further recommendations forthcoming per surgeon Physician Perch Machine Inspector note has been reviewed by physician. Signing provider agrees with the documented findings, assessment, and plan of care. I have personally seen and examined the patient, reviewed the PIANO TUNER /PAs history, exam and MDM and agree with the assessment and plan as written. Based on total v isit time, I have performed more than 50% of the visit. As above: The patient says her pain persists. Labs noted. GI was consulted here who plan to proceed with ERCP. Await those findings. Objective - Vital Signs Vital signs: Vital Signs Temp 98.3 F 12/19/21 07:52 Pulse 63 12/19/21 07:52 Resp 16 12/19/21 07:52 BP 111/63 12/19/21 07:52 Pulse Ox 93 L 12/19/21 07:52 FiO2 Intake & Output 12/18/21 12/19/21 12/19/21 18:59 06:59 18:59 Intake Total 240 250 Balance 240 250 Intake: Oral 240 250 Other: Voiding Method Toilet # Voids 15 - Labs CBC & Chem 7: 12/19/21 04:55 12/19/21 04:55 Labs: Abnormal Lab Results - Last 24 Hours (Table) 12/19/21 12/19/21 Range/Units 04:55 04:55 WBC 2.59 L (4.50-10.00) X 10*3/uL RBC 2.58 L (4.10-5.20) X 10*6/uL Hgb 9.8 L (12.0-15.0) g/dL Hct 29.0 L (37.2-46.3) % MCV 112.4 H (80.0-97.0) fL MCH 38.0 H (27.0-32.0) pg RDW 14.8 H (11.5-14.5) % Plt Count 37 L (140-440) X 10*3/uL MPV 13.8 H (9.5-12.2) fL Lymphocytes # 0.46 L (0.90-5.00) X 10*3/uL Monocytes # 0.14 L (0.20-1.00) X 10*3/uL Immature Plt Fraction 13.0 H (1.1-6.1) % Potassium 3.3 L (3.5-5.5) mmol/L BUN 8.4 L (9.0-27.0) mg/dL BUN/Creatinine Ratio 9.33 L (12.00-20.00) Ratio Calcium 8.4 L (8.7-10.3) mg/dL Total Bilirubin 10.50 H (0.30-1.20) mg/dL AST 45 H (13-35) U/L ALT 51 H (8-44) U/L Total Protein 5.4 L (6.2-8.2) g/dL Albumin 3.6 L (3.8-4.9) g/dL
[2021-12-19] MEDS: HYDROcodone/APAP 5-325MG 1 EACH TAB PO PRN ×2 (12:09→17:47)
[2021-12-19] MEDS ORDERED: PHYTONADIONE 10 MG in SODIUM CHLORIDE 0.9% 50 ML IVPB STA (12:42)
--- NOTE | 2021-12-19 13:56 | P.CONS ---
History of Present Illness - Reason for Consult Consult date: 12/19/21 ERCP Requesting physician: Kelly Guzman - Chief Complaint Right upper quadrant pain - History of Present Illness This is a pleasant 66-year-old white female who presented to the emergency department with complaints of abdominal pain. Mostly located up in the right upper quadrant radiating into her back. She does have a past medical history including alcoholic cirrhosis of the liver for which she follows with Dr. Myers. Patient states she has not had any alcohol in several years. She was diagnosed in 2014. She was just seen in September of this year with Dr. Myers with normal LFTs and total bilirubin. Total bilirubin as well as AST and ALTs. That's are also consistent with a colic cirrhosis of the liver. Patient does not report any new medications. She is currently on Rocephin. She has been on a wait list for transfer to [facility] for GI care as there was none available at this hospital. General surgeon Dr. Lemus has been following, and made the recommendation. Gastroenterology was consulted for gallstones possible ERCP for choledocholithiasis. CT abdomen and pelvis showed evidence of cirrhosis with portal venous hypertension, hydropic gallbladder with small calculi/gravel. Bile duct dilated up to 1 cm appears to be numerous small stones in the distal bile duct. Correlate with alkaline phosphatase and bilirubin levels suspected for biliary obstruction. Pancreas appears normal by CT there is some retroperitoneal edema adjacent to the tail the pancreas. Correlate with amylase and lipase levels to exclude an early acute interstitial pancreatitis. Small right-sided pleural effusion. Some mild septal lines in the lower lungs could reflect some fibrosis correlate to exclude mild pulmonary vascular congestion. Small hiatal hernia. Fibroid uterus. Sigmoid diverticulosis with superior endplate deformities of L3 through L5 Today's labs WBC 2.59 hemoglobin 9.8 hematocrit 29 platelet count 37,000 last available INR 1.2 total bilirubin 10.5 AST 45 ALTs 51 alkaline phosphatase 92 Review of Systems REVIEW OF SYSTEMS: CARDIOPULMONARY: No chest pain or shortness of breath. Gastrointestinal: Epigastric pain, right upper quadrant pain radiating to the back. No nausea or vomiting. No hematemesis, coffee-ground emesis. No rectal bleeding, or melena. GENITOURINARY: No dysuria or hematuria. MUSCULOSKELETAL: Reports normal range of motion. SKIN: No rashes. Jaundice. ENDOCRINE: No chills, fevers. No excessive weight gain or loss. No polydipsia or polyuria. PSYCHIATRIC: Unremarkable. NEUROLOGY: No change in mental status. Denies dizziness, headache. ENT: Vision unremarkable. CONSTITUTIONAL: No recent weight loss. No fever, chills, night sweats. Past Medical History Additional Past Medical History / Comment(s): cirrhosis of the liver 2014 History of Any Multi-Drug Resistant Organisms: None Reported Past Surgical History: Orthopedic Surgery Additional Past Surgical History / Comment(s): 2020 fx hip/femur Past Anesthesia/Blood Transfusion Reactions: No Reported Reaction Past Psychological History: No Psychological Hx Reported Smoking Status: Former smoker Past Alcohol Use History: Occasional Additional Past Alcohol Use History / Comment(s): pt reported 4 glasses of wine a day. stopped drinking in 2014 but restarted in 2018. Last reported drink in august of 2019. Past Drug Use History: Marijuana - Past Family History Father Additional Family Medical History / Comment(s): pt stated her father had lymphoma. Medications and Allergies Home Medications Medication Instructions Recorded Confirmed Type Biotin 5 mg PO DAILY 12/16/21 12/16/21 History Cognium 1 tab PO DAILY 12/16/21 12/16/21 History Furosemide [Lasix] 40 mg PO DAILY 12/16/21 12/16/21 History Magnesium Oxide [Mag-Ox] 400 mg PO DAILY 12/16/21 12/16/21 History Multivit-Min/Folic Acid/Fxs488 1 tab PO DAILY 12/16/21 12/16/21 History [Alive Premium Adult Multivit] Potassium Gluconate [Potassium 99 mg PO DAILY 12/16/21 12/16/21 History Gluconate ER] Spironolactone 50 mg PO DAILY 12/16/21 12/16/21 History polyethylene glycoL 3350 [Miralax] 17 gm PO DAILY PRN 12/16/21 12/16/21 History Allergies Allergy/AdvReac Type Severity Reaction Status Date / Time No Known Allergies Allergy Verified 12/16/21 08:13 Physical Exam Vitals: Vital Signs Temp Pulse Resp BP BP Pulse Ox 12/19/21 07:52 98.3 F 63 16 111/63 93 L 12/19/21 02:16 97.8 F 60 16 118/58 95 12/18/21 20:00 64 16 12/18/21 19:22 98.1 F 64 16 117/61 95 12/18/21 14:00 98.3 F 66 18 119/61 96 Intake and Output 12/18/21 12/19/21 12/19/21 22:59 06:59 14:59 Intake Total 250 Balance 250 Intake: Oral 250 Other: Voiding Method Toilet General appearance: The patient is alert, oriented, appears in no acute distress. HET: Head is normocephalic and atraumatic. Conjunctiva pink. Sclera icteric. Neck: Supple without lymphadenopathy. Trachea midline. Heart: S1 S2. Regular rate and rhythm. Lungs: Clear to auscultation. Abdomen: Soft, right upper quadrant tenderness, nondistended with bowel sounds. No guarding or rigidity. Skin: No rashes. Jaundice. Extremities: Normal skin color and turgor. No pedal edema. Neurological: No focal deficits. Alert and oriented x3. Results CBC & Chem 7: 12/19/21 04:55 12/19/21 04:55 Labs: Abnormal Lab Results - Last 24 Hours (Table) 12/18/21 12/18/21 12/19/21 Range/Units 04:39 04:39 04:55 WBC 3.31 L 2.59 L (4.50-10.00) X 10*3/uL RBC 2.70 L 2.58 L (4.10-5.20) X 10*6/uL Hgb 10.3 L 9.8 L (12.0-15.0) g/dL Hct 29.9 L 29.0 L (37.2-46.3) % MCV 110.7 H 112.4 H (80.0-97.0) fL MCH 38.1 H 38.0 H (27.0-32.0) pg RDW 14.8 H 14.8 H (11.5-14.5) % Plt Count 38 L 37 L (140-440) X 10*3/uL MPV 13.4 H 13.8 H (9.5-12.2) fL Lymphocytes # 0.43 L 0.46 L (0.90-5.00) X 10*3/uL Monocytes # 0.17 L 0.14 L (0.20-1.00) X 10*3/uL Immature Plt Fraction 11.7 H 13.0 H (1.1-6.1) % Sodium 133 L (135-145) mmol/L Potassium 3.2 L (3.5-5.5) mmol/L BUN (9.0-27.0) mg/dL BUN/Creatinine Ratio (12.00-20.00) Ratio Glucose 114 H (70-110) mg/dL Calcium 8.4 L (8.7-10.3) mg/dL Total Bilirubin 9.50 H (0.30-1.20) mg/dL AST 56 H (13-35) U/L ALT 58 H (8-44) U/L Total Protein 5.4 L (6.2-8.2) g/dL Albumin 3.7 L (3.8-4.9) g/dL 12/19/21 Range/Units 04:55 WBC (4.50-10.00) X 10*3/uL RBC (4.10-5.20) X 10*6/uL Hgb (12.0-15.0) g/dL Hct (37.2-46.3) % MCV (80.0-97.0) fL MCH (27.0-32.0) pg RDW (11.5-14.5) % Plt Count (140-440) X 10*3/uL MPV (9.5-12.2) fL Lymphocytes # (0.90-5.00) X 10*3/uL Monocytes # (0.20-1.00) X 10*3/uL Immature Plt Fraction (1.1-6.1) % Sodium (135-145) mmol/L Potassium 3.3 L (3.5-5.5) mmol/L BUN 8.4 L (9.0-27.0) mg/dL BUN/Creatinine Ratio 9.33 L (12.00-20.00) Ratio Glucose (70-110) mg/dL Calcium 8.4 L (8.7-10.3) mg/dL Total Bilirubin 10.50 H (0.30-1.20) mg/dL AST 45 H (13-35) U/L ALT 51 H (8-44) U/L Total Protein 5.4 L (6.2-8.2) g/dL Albumin 3.6 L (3.8-4.9) g/dL Comments: CT abdomen and pelvis showed evidence of cirrhosis with portal venous hyp ertension, hydropic gallbladder with small calculi/gravel. Bile duct dilated up to 1 cm appears to be numerous small stones in the distal bile duct. Correlate with alkaline phosphatase and bilirubin levels suspected for biliary obstruction. Pancreas appears normal by CT there is some retroperitoneal edema adjacent to the tail the pancreas. Correlate with amylase and lipase levels to exclude an early acute interstitial pancreatitis. Small right-sided pleural effusion. Some mild septal lines in the lower lungs could reflect some fibrosis correlate to exclude mild pulmonary vascular congestion. Small hiatal hernia. Fibroid uterus. Sigmoid diverticulosis with superior endplate deformities of L3 through L5 Assessment and Plan (1) Hyperbilirubinemia Narrative/Plan: History 58-year-old female with a history of alcoholic cirrhosis of the liver who presented to the emergency department several days ago with complaints of right upper quadrant pain associated with pain radiating to her back. She was noted to have elevated total bilirubin, AST and ALTs. She follows with Dr. Myers and her total bilirubin, AST, ALT were all within normal limits in September of this year. She had a CT of the abdomen and pelvis that showed multiple g allstones with dilated bile duct as well as numerous small stones that were seen in the distal bile duct. Patient was initially seen by general surgery Dr. Lemus who recommended transfer to a tertiary center with advanced game agent. Patient is on the waiting list however there are no beds available. She continues to have abdominal pain with continued elevation of the total bilirubin, AST and ALT. Possible etiologies to include worsening decompensated cirrhosis of the liver, however do need to consider possible choledocholithiasis. Will treat patient for underlying coagulopathy with platelets and vitamin K. We'll tentatively plan on ERCP tomorrow. Current Visit: Yes Status: Acute Code(s): E80.6 - OTHER DISORDERS OF BILIRUBIN METABOLISM SNOMED Code(s): 41329791 (2) Alcoholic cirrhosis of liver Current Visit: Yes Status: Acute Code(s): K70.30 - ALCOHOLIC CIRRHOSIS OF LIVER WITHOUT ASCITES SNOMED Code(s): 618007519 (3) Right upper quadrant pain Current Visit: Yes Status: Acute Code(s): R10.11 - RIGHT UPPER QUADRANT PAIN SNOMED Code(s): 444859626 (4) Cholelithiasis Current Visit: No Status: Acute Code(s): K80.20 - CALCULUS OF GALLBLADDER W/O CHOLECYSTITIS W/O OBSTRUCTION SNOMED Code(s): 134425415 (5) Coagulopathy Narrative/Plan: Due to underlying liver disease. Vitamin K ordered. Platelets ordered. Current Visit: Yes Status: Acute Code(s): D68.9 - COAGULATION DEFECT, UNSPECIFIED SNOMED Code(s): 40834290 Plan: 1. Continue symptomatic and supportive care 2. Continue pain management 3. Antiemetics as needed 4. Clear liquid diet, nothing by mouth after midnight 5. Vitamin K 10 MEQ IVPB 6. Platelets ordered for tomorrow morning 12/20/21 0800 7. Hold Lovenox 8. Repeat CBC tomorrow 2 hours after platelets 9. INR ordered for the morning, CMP 10. Tentatively plan to proceed with ERCP tomorrow 11. Continue with recommendations from general surgery Thank you for this consultation, we will continue to follow. Dr. Esha Myers I agree with the dictator's note, documented as a scribe by Kristi Bowden.
--- NOTE | 2021-12-19 17:09 | P.PN ---
Subjective Progress Note Date: 12/19/21 Tanja Lea, is a 66-year-old female who presented to [facility] emergency room with a chief complaint of abdominal pain nausea and vomiting, patient describes severe epigastric pain radiating to the back with some muscle spasms and episodes of nausea and vomiting she was evaluated in the emergency room vital examination on presentation revealed a temperature of 98.5 pulse 68 respiration 18 blood pressure 101/73 pulse ox 98% on room air Laboratory data revealed a white blood count of 6.0 hemoglobin 12.8 platelet count 64 sodium 136 potassium 3.9 chloride 102 CO2 23 BUN 17 creatinine 0.85 total bilirubin 10.6, AST 102 ALT 76 alkaline phosphatase 92 amylase 42 lipase 140 Testing in the emergency room, no testing was done in the emergency room, it was presumed that patient has Ascites and needs paracentesis. However patient had a computed tomography scan in August 2021 that revealed multiple gallstones. Patient was admitted to medical floor for further evaluation and treatment Past medical history is significant for history of liver cirrhosis diagnosed in 2014, history of excessive alcohol use in the past, she also has a history of hip fracture in 2019 with surgery. On review of systems patient is complaining of epigastric pain radiating to the back, complaining of episodes of nausea and vomiting otherwise no complaints there is no fever or chills no headache or dizziness no chest pain no shortness of breath no cough, no diarrhea no blood in the stools no burning with urination no frequency or urgency no hematuria, no weakness or numbness in any of the extremities no change in vision speech or gait. On 12/17/2021 patient was seen and examined on the telemetry floor he is alert and oriented 3 in no apparent distress she is complaining of abdominal pain and nausea otherwise she denies any complaints there is no fever or chills no headache or dizziness no chest pain no shortness of breath no cough no vomiting no diarrhea no blood in the stools no burning with urination no frequency or urgency and no hematuria computed tomography scan of the abdomen and pelvis reviewed recommendation by surgery is to transfer to a tertiary care center for ERCP and cholecystectomy, case technician Farnaz informed she is starting contacts to arrange for transfer. On 12/18/2021 patient was seen and examined on the telemetry floor she is alert and oriented 3 in no apparent distress she is still complaining of epigastric and right upper quadrant pain otherwise she denies any complaints there is no fever or chills no headache or dizziness no chest pain no shortness of breath no cough no nausea or vomiting no diarrhea no blood in the stools no burning with urination no frequency or urgency and no hematuria. Patient was accepted at [facility], awaiting bed opening to transfer to [facility]. On 12/19/2021 patient was seen and examined on the medical floor she is alert and oriented 3 in no apparent distress, there is no fever or chills no headache or dizziness no chest pain no shortness of breath no cough no nausea or vomiting no abdominal pain no diarrhea and no urinary symptoms. At this time we have gastroenterology service back in the hospital consultation for Dr. Prado was initiated for possible ERCP Objective - Vital Signs Vital signs: Vital Signs Temp 98.3 F 12/19/21 07:52 Pulse 63 12/19/21 07:52 Resp 16 12/19/21 07:52 BP 111/63 12/19/21 07:52 Pulse Ox 93 L 12/19/21 07:52 FiO2 Intake & Output 12/18/21 12/19/21 12/19/21 18:59 06:59 18:59 Intake Total 240 250 Balance 240 250 Intake: Oral 240 250 Other: Voiding Method Toilet # Voids 15 - Exam In general patient is alert and oriented x 3 in no distress HEENT head normocephalic and atraumatic, there is scleral icterus Neck is supple no JVD no goiter no lymphadenopathy no carotid bruit Chest examination is clear to auscultation no crackles no wheezing Cardiac exam reveals regular heart sounds S1 and S2 no gallops no murmurs Abdomen is soft with tenderness in the epigastric and right upper quadrant areas no rigidity or rebound, liver slightly enlarged Extremity exam reveals no edema no cyanosis or clubbing Neurological examination reveals no gross focal deficits - Labs CBC & Chem 7: 12/19/21 04:55 12/19/21 04:55 Labs: Abnormal Lab Results - Last 24 Hours (Table) 12/18/21 12/19/21 12/19/21 Range/Units 04:39 04:55 04:55 WBC 2.59 L (4.50-10.00) X 10*3/uL RBC 2.58 L (4.10-5.20) X 10*6/uL Hgb 9.8 L (12.0-15.0) g/dL Hct 29.0 L (37.2-46.3) % MCV 112.4 H (80.0-97.0) fL MCH 38.0 H (27.0-32.0) pg RDW 14.8 H (11.5-14.5) % Plt Count 37 L (140-440) X 10*3/uL MPV 13.8 H (9.5-12.2) fL Lymphocytes # 0.46 L (0.90-5.00) X 10*3/uL Monocytes # 0.14 L (0.20-1.00) X 10*3/uL Immature Plt Fraction 13.0 H (1.1-6.1) % Sodium 133 L (135-145) mmol/L Potassium 3.2 L 3.3 L (3.5-5.5) mmol/L BUN 8.4 L (9.0-27.0) mg/dL BUN/Creatinine Ratio 9.33 L (12.00-20.00) Ratio Glucose 114 H (70-110) mg/dL Calcium 8.4 L 8.4 L (8.7-10.3) mg/dL Total Bilirubin 9.50 H 10.50 H (0.30-1.20) mg/dL AST 56 H 45 H (13-35) U/L ALT 58 H 51 H (8-44) U/L Total Protein 5.4 L 5.4 L (6.2-8.2) g/dL Albumin 3.7 L 3.6 L (3.8-4.9) g/dL Assessment and Plan Plan: Abdominal pain nausea and vomiting History of liver cirrhosis diagnosed in 2014 History of excessive alcohol use, patient quit in 2018 History of multiple gallstones on computed tomography scan in August 2021 At this time patient is admitted to medical floor Ultrasound of the abdomen was ordered and revealed no significant ascites fluid Computed tomography scan of the abdomen and pelvis was ordered to assess cause of abdominal pain and vomiting Consultation for Dr. Michele was initiated For DVT prophylaxis subcu Lovenox for GI prophylaxis Protonix Will follow closely
[2021-12-19 20:10] VITALS: BP 104/57; PULSE 60; RESP 20; TEMP 98.4
[2021-12-20] MEDS: ONDANSETRON 4 MG/2 ML VIAL IVP PRN (00:49)
[2021-12-20] MEDS: HYDROmorphone 1 MG/ML 1 ML SYRINGE IVP PRN (00:49)
== END 2021-12-20 01:20 | disposition short-term general hospital (02) | DRG 433 ==
LOC: EC 21:17 → 6NMEDSUR 12-16 03:06 → OBSVTOIN 12-16 14:58
PROVIDERS: ADMIT Internal Medicine; ATTEND Internal Medicine
DX: K70.31 Alcoholic cirrhosis of liver with ascites (principal); D68.9 Coagulation defect, unspecified; K76.6 Portal hypertension; J90 Pleural effusion, not elsewhere classified; K80.10 Calculus of gallbladder with chronic cholecystitis without obstruction; K82.1 Hydrops of gallbladder; Z20.822 Contact with and (suspected) exposure to COVID-19; K44.9 Diaphragmatic hernia without obstruction or gangrene; D25.9 Leiomyoma of uterus, unspecified; K57.30 Diverticulosis of large intestine without perforation or abscess without bleeding; Z79.899 Other long term (current) drug therapy; Z87.19 Personal history of other diseases of the digestive system; Z87.81 Personal history of (healed) traumatic fracture; Z80.7 Family history of other malignant neoplasms of lymphoid, hematopoietic and related tissues; Z87.891 Personal history of nicotine dependence
CPT/HCPCS: 36415; 74177; 76705; 80053; 82140; 82150; 83690; 85025; 85610; 85730; 86850; 86870; 86880; 86900; 86901; 86902; 87635; 96374; 96375; 99285

== ENCOUNTER 2022-01-08 22:34 | Emergency (ER) | payer MEDICARE, BC ==
[2022-01-08] MEDS ORDERED: SODIUM CHLORIDE 0.9% 1,000 ML IV STA (22:35)
[2022-01-08] MEDS ORDERED: MORPHINE SULFATE 4 MG/ML SYRINGE IV STA (22:35)
[2022-01-08] MEDS ORDERED: ONDANSETRON 4 MG/2 ML VIAL IVP STA (22:35)
--- NOTE | 2022-01-08 22:39 | ED ---
Recheck HPI - General Stated Complaint: Abdominal pain Time Seen by Provider: 01/08/22 22:35 Source: RN notes reviewed, old records reviewed Mode of arrival: EMS Limitations: no limitations - History of Present Illness Initial Comments: This is a 66-year-old female well-known to our facility. Patient presents today for evaluation reevaluation of ascites with abdominal pain. Positive nausea no vomiting mild shortness of breath. Patient reevaluation including recent surgery with stent placement for gallbladder issue. Patient is significantly has significantly increased jaundice here in the emergency department today. Patient also complaining of abdominal pain back pain and generalized pain. -: days(s) Initial Visit For: other (ascites) Returns Today for: persistent/worsening pain related to initial visit Symptoms Since Prior Visit: worsening pain Context: other (0) Associated Symptoms: none Treatments Prior to Arrival: other medications, Given Pain Meds on - Related Data Home Medications Medication Instructions Recorded Confirmed Biotin 5 mg PO DAILY 12/16/21 12/16/21 Cognium 1 tab PO DAILY 12/16/21 12/16/21 Furosemide [Lasix] 40 mg PO DAILY 12/16/21 12/16/21 Magnesium Oxide [Mag-Ox] 400 mg PO DAILY 12/16/21 12/16/21 Multivit-Min/Folic Acid/Wuj663 1 tab PO DAILY 12/16/21 12/16/21 [Alive Premium Adult Multivit] Potassium Gluconate [Potassium 99 mg PO DAILY 12/16/21 12/16/21 Gluconate ER] Spironolactone 50 mg PO DAILY 12/16/21 12/16/21 polyethylene glycoL 3350 [Miralax] 17 gm PO DAILY PRN 12/16/21 12/16/21 Allergies Allergy/AdvReac Type Severity Reaction Status Date / Time No Known Allergies Allergy Verified 01/08/22 22:41 Review of Systems ROS Statement: Those systems with pertinent positive or pertinent negative responses have been documented in the HPI. ROS Other: All systems not noted in ROS Statement are negative. Past Medical History Additional Past Medical History / Comment(s): cirrhosis of the liver 2014 History of Any Multi-Drug Resistant Organisms: None Reported Past Surgical History: Orthopedic Surgery Additional Past Surgical History / Comment(s): 2020 fx hip/femur Past Anesthesia/Blood Transfusion Reactions: No Reported Reaction Past Psychological History: No Psychological Hx Reported Smoking Status: Former smoker Past Alcohol Use History: Occasional Past Drug Use History: Marijuana - Past Family History Father Additional Family Medical History / Comment(s): pt stated her father had lymph evie. General Exam - General Exam Comments Initial Comments: Patient is severely jaundiced General appearance: alert, in no apparent distress, anxious Head exam: Present: atraumatic, normocephalic, normal inspection Eye exam: Present: normal appearance, PERRL, EOMI. Absent: scleral icterus, conjunctival injection, periorbital swelling ENT exam: Present: normal exam, mucous membranes moist Neck exam: Present: normal inspection. Absent: tenderness, meningismus, lymphadenopathy Respiratory exam: Present: normal lung sounds bilaterally. Absent: respiratory distress, wheezes, rales, rhonchi, stridor Cardiovascular Exam: Present: regular rate, normal rhythm, normal heart sounds. Absent: systolic murmur, diastolic murmur, rubs, gallop, clicks GI/Abdominal exam: Present: soft, distended, tenderness, normal bowel sounds. Absent: guarding, rebound, rigid Extremities exam: Present: normal inspection, full ROM, normal capillary refill. Absent: tenderness, pedal edema, joint swelling, calf tenderness Back exam: Present: normal inspection Neurological exam: Present: alert, oriented X3, CN II-XII intact Psychiatric exam: Present: normal affect, normal mood Skin exam: Present: warm, dry, intact, normal color. Absent: rash Course Vital Signs 01/08/22 01/09/22 22:34 00:41 Temperature 98.3 F Pulse Rate 109 H 100 Respiratory 24 22 Rate Blood Pressure 146/74 144/70 O2 Sat by Pulse 94 L 96 Oximetry - Reevaluation(s) Reevaluation #1: 01/08/22 22:40 Medical record is reviewed Patient had no noticeable ascites last time here in the emergency department - Consultations Consultation #1: spoke with [employer] arias Vo who will Patient has a transfer Medical Decision Making - Medical Decision Making 66 female to the emergency department for evaluation patient be transferred to [facility] for continuity of care prior surgery - Lab Data Result diagrams: 01/08/22 22:43 01/08/22 22:43 Lab Results 01/08/22 01/08/22 01/08/22 Range/Units 22:43 22:43 22:43 WBC 2.0 L (3.8-10.6) k/uL RBC 2.95 L (3.80-5.40) m/uL Hgb 11.7 (11.4-16.0) gm/dL Hct 35.7 (34.0-46.0) % MCV 121.0 H D (80.0-100.0) fL MCH 39.6 H (25.0-35.0) pg MCHC 32.7 (31.0-37.0) g/dL RDW 18.2 H (11.5-15.5) % Plt Count 65 L (150-450) k/uL MPV 9.6 Neutrophils % 77 % Lymphocytes % 16 % Monocytes % 3 % Eosinophils % 2 % Basophils % 1 % Neutrophils # 1.6 (1.3-7.7) k/uL Lymphocytes # 0.3 L (1.0-4.8) k/uL Monocytes # 0.1 (0-1.0) k/uL Eosinophils # 0.0 (0-0.7) k/uL Basophils # 0.0 (0-0.2) k/uL Manual Slide Review Performed Large Platelets Present Polychromasia Present Hypochromasia Slight Anisocytosis Slight Macrocytosis Marked A PT 15.0 H (9.0-12.0) sec INR 1.5 H (<1.2) APTT 31.7 H (22.0-30.0) sec Sodium 128 L (137-145) mmol/L Potassium 3.9 (3.5-5.1) mmol/L Chloride 99 (98-107) mmol/L Carbon Dioxide 20 L (22-30) mmol/L Anion Gap 9 mmol/L BUN 8 (7-17) mg/dL Creatinine 0.53 (0.52-1.04) mg/dL Est GFR (CKD-EPI)AfAm >90 (>60 ml/min/1.73 sqM) Est GFR (CKD-EPI)NonAf >90 (>60 ml/min/1.73 sqM) Glucose 127 H (74-99) mg/dL Plasma Lactic Acid Patrice (0.7-2.0) mmol/L Calcium 8.8 (8.4-10.2) mg/dL Total Bilirubin 18.4 H* (0.2-1.3) mg/dL AST 94 H (14-36) U/L ALT 46 H (4-34) U/L Alkaline Phosphatase 142 H (38-126) U/L Total Protein 7.0 (6.3-8.2) g/dL Albumin 3.6 (3.5-5.0) g/dL Amylase 53 (30-110) U/L Lipase 337 H (23-300) U/L 01/08/22 Range/Units 22:43 WBC (3.8-10.6) k/uL RBC (3.80-5.40) m/uL Hgb (11.4-16.0) gm/dL Hct (34.0-46.0) % MCV (80.0-100.0) fL MCH (25.0-35.0) pg MCHC (31.0-37.0) g/dL RDW (11.5-15.5) % Plt Count (150-450) k/uL MPV Neutrophils % % Lymphocytes % % Monocytes % % Eosinophils % % Basophils % % Neutrophils # (1.3-7.7) k/uL Lymphocytes # (1.0-4.8) k/uL Monocytes # (0-1.0) k/uL Eosinophils # (0-0.7) k/uL Basophils # (0-0.2) k/uL Manual Slide Review Large Platelets Polychromasia Hypochromasia Anisocytosis Macrocytosis PT (9.0-12.0) sec INR (<1.2) APTT (22.0-30.0) sec Sodium (137-145) mmol/L Potassium (3.5-5.1) mmol/L Chloride (98-107) mmol/L Carbon Dioxide (22-30) mmol/L Anion Gap mmol/L BUN (7-17) mg/dL Creatinine (0.52-1.04) mg/dL Est GFR (CKD-EPI)AfAm (>60 ml/min/1.73 sqM) Est GFR (CKD-EPI)NonAf (>60 ml/min/1.73 sqM) Glucose (74-99) mg/dL Plasma Lactic Acid Patrice 1.8 (0.7-2.0) mmol/L Calcium (8.4-10.2) mg/dL Total Bilirubin (0.2-1.3) mg/dL AST (14-36) U/L ALT (4-34) U/L Alkaline Phosphatase (38-126) U/L Total Protein (6.3-8.2) g/dL Albumin (3.5-5.0) g/dL Amylase (30-110) U/L Lipase (23-300) U/L - Radiology Data Radiology results: report reviewed (Ultrasound creased gallbladder disease increased ascites increased gallstones), image reviewed Disposition Clinical Impression: Right upper quadrant pain, History of liver failure, Cholelithiasis, Ascites, Elevated bilirubin, Abdominal pain, Hyperbilirubinemia, Alcoholic cirrhosis of liver Disposition: OTHER INSTITUTION NOT DEFINED Condition: Fair Is patient prescribed a controlled substance at d/c from ED?: No Referrals: Pastora Lynch MD [Primary Care Provider] - 1-2 days Time of Disposition: 01:10 - Out of Hospital Transfer - Req. Specs Out of Hospital Transfer - Requested Specifics: Other Non-Acute ([facility])
[2022-01-08 22:56] LABS: Anisocytosis Slight; Basophils % (A) 1 %; Eosinophils % (A) 2 %; HCT 35.7 % (34.0-46.0); HGB 11.7 gm/dL (11.4-16.0); Hypochromasia Slight; Lymphocytes # (A) 0.3 k/uL (1.0-4.8); Lymphocytes % (A) 16 %; MCH 39.6 pg (25.0-35.0); MCHC 32.7 g/dL (31.0-37.0); Macrocytosis Marked; Mean Platelet Volume 9.6; Monocytes # (A) 0.1 k/uL (0-1.0); Monocytes % (A) 3 %; Neutrophils # (A) 1.6 k/uL (1.3-7.7); Neutrophils % (A) 77 %; RBC 2.95 m/uL (3.80-5.40); RDW 18.2 % (11.5-15.5)
[2022-01-08 23:07] LABS: ALT 46 U/L (4-34); AST 94 U/L (14-36); African American GFR (CKD) >90 (>60 ml/min/1.73 sqM); Albumin 3.6 g/dL (3.5-5.0); Alkaline Phosphatase 142 U/L (38-126); Amylase 53 U/L (30-110); Anion Gap 9 mmol/L; Blood Urea Nitrogen 8 mg/dL (7-17); Calcium 8.8 mg/dL (8.4-10.2); Carbon Dioxide 20 mmol/L (22-30); Chloride 99 mmol/L (98-107); Glucose 127 mg/dL (74-99); Lipase 337 U/L (23-300); Non-African American GFR(CKD) >90 (>60 ml/min/1.73 sqM); Potassium 3.9 mmol/L (3.5-5.1); Sodium 128 mmol/L (137-145)
[2022-01-08 23:10] LABS: Total Bilirubin 18.4 mg/dL (0.2-1.3)
[2022-01-08 23:23] LABS: INR 1.5 (<1.2); Partial Thromboplastin Time 31.7 sec (22.0-30.0)
[2022-01-08 23:40] LABS: Platelet Count 65 k/uL (150-450)
[2022-01-08 23:41] LABS: Large Platelets Present; Polychromasia Present
--- NOTE | 2022-01-09 00:12 | US ---
EXAMINATION TYPE: US gallbladder DATE OF EXAM: 01/08/2022 COMPARISON: CT CLINICAL HISTORY: pain. Pain. Hx cirrhosis, kidney cyst, gallstones. TECHNIQUE: Multiple sonographic images of the right upper quadrant are obtained. FINDINGS: EXAM MEASUREMENTS: Liver Length: 17.1 cm Gallbladder Wall: 0.45 cm CBD: 0.63 cm Right Kidney: 11.3 x 5.7 x 4.3 cm THERMAL MOLDER NOTES: Limited due to gas. *Ascites seen in the RUQ. Incidental- appearance of right pleural effusion seen in liver imaging. Pancreas: Limited visibility of tail. Liver: Measures upper limits. Appears coarse. Gallbladder: Appears enlarged measuring 11 cm in length. Wall appears thickened. Echogenic material seen within. Hyperechoic foci seen within. Evidence for sonographic Dunlap's sign: No CBD: Portions seen measure upper limits. *Portal vein and splenic vein appear enlarged. Right Kidney: Complex area seen: 6.4 x 5.4 x 3.8 cm. IMPRESSION: There are gallstones and echogenic bile. There is abdominal moderate ascites. Dilated portal venous s ystem could be portal venous hypertension. No dilated ducts.
[2022-01-09] MEDS ORDERED: MORPHINE SULFATE 4 MG/ML SYRINGE IVP STA (07:58)
[2022-01-09] MEDS ORDERED: ONDANSETRON 4 MG/2 ML VIAL IVP STA (07:58)
[2022-01-09] MEDS: HYDROmorphone 1 MG/ML 1 ML SYRINGE IVP PRN (19:15)
[2022-01-10] MEDS: HYDROmorphone 1 MG/ML 1 ML SYRINGE IVP PRN ×2 (07:32→18:33)
[2022-01-10] MEDS ORDERED: ONDANSETRON 4 MG/2 ML VIAL IVP STA (07:33)
[2022-01-10 08:24] LABS: Anisocytosis Slight; Basophils % (A) 1 %; Eosinophils % (A) 1 %; HCT 31.9 % (34.0-46.0); HGB 10.5 gm/dL (11.4-16.0); Hypochromasia Slight; Lymphocytes # (A) 0.5 k/uL (1.0-4.8); Lymphocytes % (A) 14 %; MCHC 32.9 g/dL (31.0-37.0); MCV 121.6 fL (80.0-100.0); Macrocytosis Marked; Mean Platelet Volume 9.7; Monocytes # (A) 0.1 k/uL (0-1.0); Monocytes % (A) 3 %; Neutrophils # (A) 2.8 k/uL (1.3-7.7); Neutrophils % (A) 81 %; RBC 2.63 m/uL (3.80-5.40); RDW 18.6 % (11.5-15.5); WBC 3.5 k/uL (3.8-10.6)
[2022-01-10 08:51] LABS: ALT 42 U/L (4-34); AST 78 U/L (14-36); African American GFR (CKD) >90 (>60 ml/min/1.73 sqM); Albumin 3.1 g/dL (3.5-5.0); Alkaline Phosphatase 121 U/L (38-126); Anion Gap 7 mmol/L; Blood Urea Nitrogen 15 mg/dL (7-17); Calcium 8.4 mg/dL (8.4-10.2); Carbon Dioxide 20 mmol/L (22-30); Chloride 101 mmol/L (98-107); Glucose 152 mg/dL (74-99); Magnesium 1.7 mg/dL (1.6-2.3); Non-African American GFR(CKD) >90 (>60 ml/min/1.73 sqM); Potassium 4.9 mmol/L (3.5-5.1); Sodium 128 mmol/L (137-145); Total Protein 6.2 g/dL (6.3-8.2)
[2022-01-10 08:56] LABS: Total Bilirubin 19.4 mg/dL (0.2-1.3)
[2022-01-10 09:12] LABS: INR 1.6 (<1.2); Partial Thromboplastin Time 31.9 sec (22.0-30.0)
[2022-01-10] MEDS: SODIUM CHLORIDE 0.9% 1,000 ML IV SCH (09:20)
[2022-01-10 09:28] LABS: Platelet Count 64 k/uL (150-450)
[2022-01-10 10:07] LABS: Polychromasia Present
[2022-01-10 18:14] VITALS: TEMP 98.4
[2022-01-11] MEDS ORDERED: ONDANSETRON 4 MG/2 ML VIAL IVP STA (07:50)
[2022-01-11 08:45] VITALS: RESP 16
[2022-01-11] MEDS: SODIUM CHLORIDE 0.9% 1,000 ML IV SCH ×2 (09:26)
--- NOTE | 2022-01-11 11:44 | ED ---
Medical Decision Making - Medical Decision Making Patient is pending transfer to [facility]. I spoke with the admitting physician, Dr. Hernández and updated him on the patient's status. Pain is under control. There is no concern for an ascending infection of her biliary stent at this time. Labs remained relatively unchanged from yesterday but I did order repeat labs for today. Repeat labs are relatively unremarkable when compared to prior days. Remained stable.He was in agreement with the plan for management at this time. Patient will be transferred likely this afternoon. - Lab Data Result diagrams: 01/11/22 11:39 01/11/22 11:20 Lab Results 01/08/22 01/08/22 01/08/22 Range/Units 22:43 22:43 22:43 WBC 2.0 L (3.8-10.6) k/uL RBC 2.95 L (3.80-5.40) m/uL Hgb 11.7 (11.4-16.0) gm/dL Hct 35.7 (34.0-46.0) % MCV 121.0 H D (80.0-100.0) fL MCH 39.6 H (25.0-35.0) pg MCHC 32.7 (31.0-37.0) g/dL RDW 18.2 H (11.5-15.5) % Plt Count 65 L (150-450) k/uL MPV 9.6 Neutrophils % 77 % Neutrophils % (Manual) % Band Neuts % (Manual) % Lymphocytes % 16 % Lymphocytes % (Manual) % Monocytes % 3 % Monocytes % (Manual) % Eosinophils % 2 % Eosinophils % (Manual) % Basophils % 1 % Neutrophils # 1.6 (1.3-7.7) k/uL Neutrophils # (Manual) (1.3-7.7) k/uL Lymphocytes # 0.3 L (1.0-4.8) k/uL Lymphocytes # (Manual) (1.0-4.8) k/uL Monocytes # 0.1 (0-1.0) k/uL Monocytes # (Manual) (0-1.0) k/uL Eosinophils # 0.0 (0-0.7) k/uL Eosinophils # (Manual) (0-0.7) k/uL Basophils # 0.0 (0-0.2) k/uL Nucleated RBCs (0-0) /100 WBC Manual Slide Review Performed Large Platelets Present Polychromasia Present Hypochromasia Slight Anisocytosis Slight Macrocytosis Marked A PT 15.0 H (9.0-12.0) sec INR 1.5 H (<1.2) APTT 31.7 H (22.0-30.0) sec Sodium 128 L (137-145) mmol/L Potassium 3.9 (3.5-5.1) mmol/L Chloride 99 (98-107) mmol/L Carbon Dioxide 20 L (22-30) mmol/L Anion Gap 9 mmol/L BUN 8 (7-17) mg/dL Creatinine 0.53 (0.52-1.04) mg/dL Est GFR (CKD-EPI)AfAm >90 (>60 ml/min/1.73 sqM) Est GFR (CKD-EPI)NonAf >90 (>60 ml/min/1.73 sqM) Glucose 127 H (74-99) mg/dL Plasma Lactic Acid Patrice (0.7-2.0) mmol/L Calcium 8.8 (8.4-10.2) mg/dL Magnesium (1.6-2.3) mg/dL Total Bilirubin 18.4 H* (0.2-1.3) mg/dL AST 94 H (14-36) U/L ALT 46 H (4-34) U/L Alkaline Phosphatase 142 H (38-126) U/L Total Protein 7.0 (6.3-8.2) g/dL Albumin 3.6 (3.5-5.0) g/dL Amylase 53 (30-110) U/L Lipase 337 H (23-300) U/L Coronavirus (PCR) (Not Detectd) 01/08/22 01/09/22 01/10/22 Range/Units 22:43 00:37 08:07 WBC 3.5 L (3.8-10.6) k/uL RBC 2.63 L (3.80-5.40) m/uL Hgb 10.5 L (11.4-16.0) gm/dL Hct 31.9 L (34.0-46.0) % MCV 121.6 H (80.0-100.0) fL MCH 40.0 H (25.0-35.0) pg MCHC 32.9 (31.0-37.0) g/dL RDW 18.6 H (11.5-15.5) % Plt Count 64 L (150-450) k/uL MPV 9.7 Neutrophils % 81 % Neutrophils % (Manual) % Band Neuts % (Manual) % Lymphocytes % 14 % Lymphocytes % (Manual) % Monocytes % 3 % Monocytes % (Manual) % Eosinophils % 1 % Eosinophils % (Manual) % Basophils % 1 % Neutrophils # 2.8 (1.3-7.7) k/uL Neutrophils # (Manual) (1.3-7.7) k/uL Lymphocytes # 0.5 L (1.0-4.8) k/uL Lymphocytes # (Manual) (1.0-4.8) k/uL Monocytes # 0.1 (0-1.0) k/uL Monocytes # (Manual) (0-1.0) k/uL Eosinophils # 0.0 (0-0.7) k/uL Eosinophils # (Manual) (0-0.7) k/uL Basophils # 0.0 (0-0.2) k/uL Nucleated RBCs (0-0) /100 WBC Manual Slide Review Performed Large Platelets Polychromasia Present Hypochromasia Slight Anisocytosis Slight Macrocytosis Marked A PT (9.0-12.0) sec INR (<1.2) APTT (22.0-30.0) sec Sodium (137-145) mmol/L Potassium (3.5-5.1) mmol/L Chloride (98-107) mmol/L Carbon Dioxide (22-30) mmol/L Anion Gap mmol/L BUN (7-17) mg/dL Creatinine (0.52-1.04) mg/dL Est GFR (CKD-EPI)AfAm (>60 ml/min/1.73 sqM) Est GFR (CKD-EPI)NonAf (>60 ml/min/1.73 sqM) Glucose (74-99) mg/dL Plasma Lactic Acid Patrice 1.8 (0.7-2.0) mmol/L Calcium (8.4-10.2) mg/dL Magnesium (1.6-2.3) mg/dL Total Bilirubin (0.2-1.3) mg/dL AST (14-36) U/L ALT (4-34) U/L Alkaline Phosphatase (38-126) U/L Total Protein (6.3-8.2) g/dL Albumin (3.5-5.0) g/dL Amylase (30-110) U/L Lipase (23-300) U/L Coronavirus (PCR) Not Detected (Not Detectd) 01/10/22 01/10/22 01/11/22 Range/Units 08:07 08:07 11:20 WBC (3.8-10.6) k/uL RBC (3.80-5.40) m/uL Hgb (11.4-16.0) gm/dL Hct (34.0-46.0) % MCV (80.0-100.0) fL MCH (25.0-35.0) pg MCHC (31.0-37.0) g/dL RDW (11.5-15.5) % Plt Count (150-450) k/uL MPV Neutrophils % % Neutrophils % (Manual) % Band Neuts % (Manual) % Lymphocytes % % Lymphocytes % (Manual) % Monocytes % % Monocytes % (Manual) % Eosinophils % % Eosinophils % (Manual) % Basophils % % Neutrophils # (1.3-7.7) k/uL Neutrophils # (Manual) (1.3-7.7) k/uL Lymphocytes # (1.0-4.8) k/uL Lymphocytes # (Manual) (1.0-4.8) k/uL Monocytes # (0-1.0) k/uL Monocytes # (Manual) (0-1.0) k/uL Eosinophils # (0-0.7) k/uL Eosinophils # (Manual) (0-0.7) k/uL Basophils # (0-0.2) k/uL Nucleated RBCs (0-0) /100 WBC Manual Slide Review Large Platelets Polychromasia Hypochromasia Anisocytosis Macrocytosis PT 16.0 H (9.0-12.0) sec INR 1.6 H (<1.2) APTT 31.9 H (22.0-30.0) sec Sodium 128 L 129 L (137-145) mmol/L Potassium 4.9 4.3 (3.5-5.1) mmol/L Chloride 101 98 (98-107) mmol/L Carbon Dioxide 20 L 25 (22-30) mmol/L Anion Gap 7 6 mmol/L BUN 15 13 (7-17) mg/dL Creatinine 0.57 0.51 L (0.52-1.04) mg/dL Est GFR (CKD-EPI)AfAm >90 >90 (>60 ml/min/1.73 sqM) Est GFR (CKD-EPI)NonAf >90 >90 (>60 ml/min/1.73 sqM) Glucose 152 H 124 H (74-99) mg/dL Plasma Lactic Acid Patrice (0.7-2.0) mmol/L Calcium 8.4 8.5 (8.4-10.2) mg/dL Magnesium 1.7 1.6 (1.6-2.3) mg/dL Total Bilirubin 19.4 H* 18.8 H* (0.2-1.3) mg/dL AST 78 H 65 H (14-36) U/L ALT 42 H 38 H (4-34) U/L Alkaline Phosphatase 121 111 (38-126) U/L Total Protein 6.2 L 6.1 L (6.3-8.2) g/dL Albumin 3.1 L 3.1 L (3.5-5.0) g/dL Amylase 41 (30-110) U/L Lipase 244 (23-300) U/L Coronavirus (PCR) (Not Detectd) 01/11/22 01/11/22 Range/Units 11:39 11:39 WBC 3.4 L (3.8-10.6) k/uL RBC 2.66 L (3.80-5.40) m/uL Hgb 10.9 L (11.4-16.0) gm/dL Hct 32.7 L (34.0-46.0) % MCV 123.1 H (80.0-100.0) fL MCH 41.1 H (25.0-35.0) pg MCHC 33.4 (31.0-37.0) g/dL RDW 19.2 H (11.5-15.5) % Plt Count 63 L (150-450) k/uL MPV 9.6 Neutrophils % % Neutrophils % (Manual) 80 % Band Neuts % (Manual) 3 % Lymphocytes % % Lymphocytes % (Manual) 12 % Monocytes % % Monocytes % (Manual) 3 % Eosinophils % % Eosinophils % (Manual) 2 % Basophils % % Neutrophils # (1.3-7.7) k/uL Neutrophils # (Manual) 2.80 (1.3-7.7) k/uL Lymphocytes # (1.0-4.8) k/uL Lymphocytes # (Manual) 0.41 L (1.0-4.8) k/uL Monocytes # (0-1.0) k/uL Monocytes # (Manual) 0.10 (0-1.0) k/uL Eosinophils # (0-0.7) k/uL Eosinophils # (Manual) 0.07 (0-0.7) k/uL Basophils # (0-0.2) k/uL Nucleated RBCs 0 (0-0) /100 WBC Manual Slide Review Performed Large Platelets Polychromasia Hypochromasia Slight Anisocytosis Slight Macrocytosis Marked A PT 14.2 H (9.0-12.0) sec INR 1.4 H (<1.2) APTT 30.2 H (22.0-30.0) sec Sodium (137-145) mmol/L Potassium (3.5-5.1) mmol/L Chloride (98-107) mmol/L Carbon Dioxide (22-30) mmol/L Anion Gap mmol/L BUN (7-17) mg/dL Creatinine (0.52-1.04) mg/dL Est GFR (CKD-EPI)AfAm (>60 ml/min/1.73 sqM) Est GFR (CKD-EPI)NonAf (>60 ml/min/1.73 sqM) Glucose (74-99) mg/dL Plasma Lactic Acid Patrice (0.7-2.0) mmol/L Calcium (8.4-10.2) mg/dL Magnesium (1.6-2.3) mg/dL Total Bilirubin (0.2-1.3) mg/dL AST (14-36) U/L ALT (4-34) U/L Alkaline Phosphatase (38-126) U/L Total Protein (6.3-8.2) g/dL Albumin (3.5-5.0) g/dL Amylase (30-110) U/L Lipase (23-300) U/L Coronavirus (PCR) (Not Detectd) Disposition Clinical Impression: Right upper quadrant pain, History of liver failure, Cholelithiasis, Ascites, Elevated bilirubin, Abdominal pain, Hyperbilirubinemia, Alcoholic cirrhosis of liver Disposition: OTHER INSTITUTION NOT DEFINED Condition: Fair Referrals: Pastora Lynch MD [Primary Care Provider] - 1-2 days - Out of Hospital Transfer - Req. Specs Out of Hospital Transfer - Requested Specifics: Other Emergency Center ([facility] for continuity of care. biliary stent complication)
[2022-01-11 11:58] LABS: ALT 38 U/L (4-34); AST 65 U/L (14-36); African American GFR (CKD) >90 (>60 ml/min/1.73 sqM); Albumin 3.1 g/dL (3.5-5.0); Alkaline Phosphatase 111 U/L (38-126); Amylase 41 U/L (30-110); Anion Gap 6 mmol/L; Blood Urea Nitrogen 13 mg/dL (7-17); Calcium 8.5 mg/dL (8.4-10.2); Carbon Dioxide 25 mmol/L (22-30); Chloride 98 mmol/L (98-107); Glucose 124 mg/dL (74-99); Lipase 244 U/L (23-300); Magnesium 1.6 mg/dL (1.6-2.3); Non-African American GFR(CKD) >90 (>60 ml/min/1.73 sqM); Potassium 4.3 mmol/L (3.5-5.1); Sodium 129 mmol/L (137-145)
[2022-01-11 12:07] LABS: Total Bilirubin 18.8 mg/dL (0.2-1.3); Total Protein 6.1 g/dL (6.3-8.2)
[2022-01-11 12:18] LABS: Anisocytosis Slight; HCT 32.7 % (34.0-46.0); HGB 10.9 gm/dL (11.4-16.0); Hypochromasia Slight; MCH 41.1 pg (25.0-35.0); MCHC 33.4 g/dL (31.0-37.0); MCV 123.1 fL (80.0-100.0); Macrocytosis Marked; Mean Platelet Volume 9.6; RBC 2.66 m/uL (3.80-5.40); RDW 19.2 % (11.5-15.5); WBC 3.4 k/uL (3.8-10.6)
[2022-01-11 12:23] LABS: Platelet Count 63 k/uL (150-450)
[2022-01-11 12:27] LABS: INR 1.4 (<1.2); Partial Thromboplastin Time 30.2 sec (22.0-30.0); Prothrombin Time 14.2 sec (9.0-12.0)
[2022-01-11 13:39] LABS: Band Neutrophils % 3 %; Eosinophils # (M) 0.07 k/uL (0-0.7); Lymphocytes # (M) 0.41 k/uL (1.0-4.8); Neutrophils % (M) 80 %; Nucleated Red Blood Cells 0 /100 WBC (0-0); Total Cells Counted 100
[2022-01-11 15:08] VITALS: BP 123/52; PULSE 85
[2022-01-11] MEDS ORDERED: ONDANSETRON 4 MG/2 ML VIAL IVP PRN (16:34)
[2022-01-11] MEDS: HYDROmorphone 1 MG/ML 1 ML SYRINGE IVP PRN ×2 (16:37→23:00)
== END 2022-01-11 23:10 | disposition other institution (70) ==
LOC: EC 22:34
DX: K74.60 Unspecified cirrhosis of liver (principal); K80.20 Calculus of gallbladder without cholecystitis without obstruction; R18.8 Other ascites; E80.6 Other disorders of bilirubin metabolism; Z87.891 Personal history of nicotine dependence
CPT/HCPCS: 36415; 80053; 82150; 83605; 83690; 85025; 85610; 85730; 87635; 76705; 99285; 96374; 96375; 96376; 96361; J2270 ×2; J2405 ×2; J1170; 83735

== ENCOUNTER 2023-12-25 22:23 | Observation (INO) | payer MEDICARE, BC ==
[2023-12-25 22:34] VITALS: RESP 18
--- NOTE | 2023-12-25 22:40 | ED ---
Animal Bite HPI - General Chief Complaint: Animal Bite Stated Complaint: Dog Bite L Arm/Finger Time Seen by Provider: 12/25/23 22:39 Source: patient, RN notes reviewed Mode of arrival: ambulatory Limitations: no limitations - History of Present Illness Initial Comments: 68-year-old female presented to the ER with a chief complaint of a dog bite. Patient states she was sitting on the couch pending her daughter's dog when the dog was triggered by an unknown source and bit her hand. She also reports a laceration to her left breast. Patient states her left fourth digit is nearly amputated and is significantly bleeding. She is not currently on any blood thinners. Tetanus is up-to-date. Animals vaccinations are not up-to-date. Patient denies any other injuries or complaints. - Related Data Home Medications Medication Instructions Recorded Confirmed Biotin 10 mg PO DAILY 12/16/21 01/09/22 Cognium 1 tab PO DAILY 12/16/21 01/09/22 Furosemide [Lasix] 40 mg PO DAILY 12/16/21 01/09/22 Magnesium Oxide [Mag-Ox] 400 mg PO DAILY 12/16/21 01/09/22 Multivit-Min/Folic Acid/Vtc871 1 tab PO DAILY 12/16/21 01/09/22 [Alive Premium Adult Multivit] Potassium Gluconate [Potassium 99 mg PO DAILY 12/16/21 01/09/22 Gluconate ER] Spironolactone 50 mg PO DAILY 12/16/21 01/09/22 polyethylene glycoL 3350 [Miralax] 17 gm PO DAILY PRN 12/16/21 01/09/22 Acetaminophen Tab [Tylenol Tab] 500 - 1,000 mg PO Q6HR PRN 01/09/22 01/09/22 Ondansetron Odt [Zofran Odt] 4 mg PO Q8HR PRN 01/09/22 01/09/22 Pantoprazole [Protonix] 40 mg PO DAILY 01/09/22 01/09/22 Allergies Allergy/AdvReac Type Severity Reaction Status Date / Time No Known Allergies Allergy Verified 12/25/23 22:34 Review of Systems ROS Statement: Those systems with pertinent positive or pertinent negative responses have been documented in the HPI. ROS Other: All systems not noted in ROS Statement are negative. Past Medical History Additional Past Medical History / Comment(s): cirrhosis of the liver 2015 History of Any Multi-Drug Resistant Organisms: None Reported Past Surgical History: Orthopedic Surgery Additional Past Surgical History / Comment(s): 2020 fx hip/femur Past Anesthesia/Blood Transfusion Reactions: No Reported Reaction Past Psychological History: No Psychological Hx Reported Smoking Status: Former smoker Past Alcohol Use History: Occasional Past Drug Use History: None Reported - Past Family History Father Additional Family Medical History / Comment(s): pt stated her father had lymphoma. General Exam - General Exam Comments Initial Comments: Visual Physical Exam Vital signs reviewed General: Well-appearing, nontoxic, no acute distress. Head: Normocephalic, atraumatic Eyes: PERRLA, EOMI ENT: Airway patent Chest: Nonlabored breathing Skin: No visual rash, normal skin tone Neuro: Alert and oriented 3 Musculoskeletal: No gross abnormalities, noticeable deformity to left fourth digit with active bleeding. Limitations: no limitations General appearance: alert, in no apparent distress Respiratory exam: Present: normal lung sounds bilaterally. Absent: respiratory distress, wheezes, rales, rhonchi, stridor Cardiovascular Exam: Present: regular rate, normal rhythm, normal heart sounds. Absent: systolic murmur, diastolic murmur, rubs, gallop, clicks GI/Abdominal exam: Present: soft, normal bowel sounds. Absent: distended, tenderness, guarding, rebound, rigid Extremities exam: Present: other (Noticeable deformity with significant wounds to left fourth digit. Sensation is intact. Mild active bleeding. 2+ left radial pulse. There is also a superficial laceration to third digit. No active bleeding.) Neurological exam: Present: alert, oriented X3, CN II-XII intact Skin exam: Present: other (5 cm laceration to left breast. Minimal active bleeding.) Course Vital Signs 12/25/23 22:30 Temperature 97.8 F Pulse Rate 71 Respiratory 18 Rate O2 Sat by Pulse 97 Oximetry - Reevaluation(s) Reevaluation #1: 12/26/23 03:13 Case discussed with Xiomara orthopedics on-call, who advised on admission and IV antibiotics. Possible surgical and prevention tomorrow. Procedures - Laceration Laceration #1 Indication: laceration Site: hand (Third digit) Size (cm): 1 Description: linear Anesthetic Used: lidocaine 1%, with epi Anesthesia Technique: local infiltration Amount (mls): 1 Pre-repair: wound explored, irrigated extensively, deep structures intact Type of Sutures: nylon Size of Sutures: 4-0 Number of Sutures: 1 Technique: simple, interrupted Patient Tolerated Procedure: well Laceration #2 Indication: laceration Site: hand (4th digit) Size (cm): 6 Description: irregular, contaminated Depth: involves muscle layer Anesthetic Used: lidocaine 1%, with epi Anesthesia Technique: nerve block Amount (mls): 10 Pre-repair: wound explored, irrigated extensively Type of Sutures: nylon Size of Sutures: 4-0 Number of Sutures: 4 Technique: simple, interrupted Patient Tolerated Procedure: well Laceration #3 Indication: laceration Site: chest Size (cm): 5 Description: linear Anesthetic Used: lidocaine 1%, with epi Anesthesia Technique: local infiltration Amount (mls): 7 Pre-repair: wound explored, irrigated extensively, deep structures intact Type of Sutures: nylon Size of Sutures: 4-0 Number of Sutures: 6 Technique: simple, interrupted Patient Tolerated Procedure: well - Orthopedic Joint Reduction Joint #1 Side: left Joint Reduction Location: finger Analgesia: digital block Local Anesthetic Used: Lidocaine 1%, with Epi Amount of Anesthetic Used (mLs): 10 Technique Used: direct manipulation Post-Reduction Neuro Exam: no change Post-Reduction Vascular Exam: no change Post Reduction X-Ray Obtained: No Splint Applied: Yes (Finger splint) Patient Tolerated Procedure: well Medical Decision Making - Medical Decision Making I performed the quick note portion of this chart. Electronically signed by Erin Bee PA-C Was pt. sent in by a medical professional or institution ([facility], [facility], urgent care, hospital, or intermediate...) When possible be specific @ -No Did you speak to anyone other than the patient for history (EMS, parent, family, police, friend...)? What history was obtained from this source @ -No Did you review nursing and triage notes (agree or disagree)? Why? @ -I reviewed and agree with nursing and triage notes Were old charts reviewed (outside hosp., previous admission, EMS record, old EKG, old radiological studies, urgent care reports/EKG's, intermediate records)? Report findings @ -No old charts were reviewed Differential Diagnosis (chest pain, altered mental status, abdominal pain women, abdominal pain men, vaginal bleeding, weakness, fever, dyspnea, syncope, headache, dizziness, GI bleed, back pain, seizure, CVA, palpatations, mental health, musculoskeletal)? @ -Differential Musculoskeletal: Muscular strain, contusion, ligament sprain, fracture, arthritis, septic arthritis, bursitis, cellulitis, muscle spasm, nerve compression, DVT, arterial occlusion, herpes zoster, electrolyte abnormality, tumor.... This is not meant to be in all inclusive list EKG interpreted by me (3pts min.). @ -None X-rays interpreted by me (1pt min.). @ -Left hand x-ray interpreted by me remarkable for an acute comminuted displaced fracture through the mid aspect of the fourth proximal phalanx with associated soft tissue swelling. CT interpreted by me (1pt min.). @ -None done U/S interpreted by me (1pt. min.). @ -None done What testing was considered but not performed or refused? (CT, X-rays, U/S, labs)? Why? @ -None What meds were considered but not given or refused? Why? @ -None Did you discuss the management of the patient with other professionals (professionals i.e. , PA, [facility], lab, RT, psych nurse, school social worker, intermediate school teacher, teacher, compliance officer, caser shoe parts)? Give summary @ -Yes, case discussed with orthopedics on-call, Xiomara, who advised on admission, IV antibiotics and surgical intervention today. Was smoking cessation discussed for >3mins.? @ -No Was critical care preformed (if so, how long)? @ -No Were there social determinants of health that impacted care today? How? (Homelessness, low income, unemployed, alcoholism, drug addiction, transportation, low edu. Level, literacy, decrease access to med. care, assisted, rehab)? @ -No Was there de-escalation of care discussed even if they declined (Discuss DNR or withdrawal of care, Hospice)? DNR status @ -No What co-morbidities impacted this encounter? (DM, HTN, Smoking, COPD, CAD, Cancer, CVA, ARF, Chemo, Hep., AIDS, mental health diagnosis, sleep apnea, morbid obesity)? @ -Liver cirrhosis, low platelets Was patient admitted / discharged? Hospital course, mention meds given and route, prescriptions, significant lab abnormalities, going to OR and other pertinent info. @ -Admitted. 68-year-old female presented to the ER with a chief complaint of a dog bite. History and physical exam completed. Vitals stable. Patient in no signs of acute distress and nontoxic-appearing. Left upper extremity neurovascular intact. Left fourth digit with significant deformity and open wound. There is mild active bleeding. Sensation is intact with left fourth digit. X-rays obtained significant for a an acute comminuted displaced fracture to the mid aspect of the fourth proximal phalanx with associated soft tissue swelling. I discussed this case with Xiomara, on-call orthopedics who advised on admission, IV antibiotics and surgical intervention today. Finger wound was approximated with 4 simple interrupted sutures. Finger was manually reduced with traction. Wound dressed with nonadherent dressing, gauze and placed in a finger splint. Digit serena taped to neighboring digits for support. Bleeding controlled with digital block and local injection of lidocaine with epi. Breast laceration closed, procedure note above. Patient started on IV Ancef every 8 hours. Tetanus is up-to-date. Patient refused rabies vaccinations at this time. Patient admitted in stable condition to orthopedics for further treatment. Case discussed with ED attending, Dr. Sanchez. Undiagnosed new problem with uncertain prognosis? @ -No Drug Therapy requiring intensive monitoring for toxicity (Heparin, Nitro, Insulin, Cardizem)? @ -No Were any procedures done? @ -Yes Diagnosis/symptom? @ -Dog bite/open fracture/laceration Acute, or Chronic, or Acute on Chronic? @ -Acute Uncomplicated (without systemic symptoms) or Complicated (systemic symptoms)? @ -Complicated Side effects of treatment? @ -No Exacerbation, Progression, or Severe Exacerbation? @ -No Poses a threat to life or bodily function? How? (Chest pain, [place], [place], pneumonia, PE, COPD, DKA, ARF, appy, cholecystitis, CVA, Diverticulitis, Homicidal, Suicidal, threat to staff... and all critical care pts) @ -Yes, open fracture can lead to osteomyelitis which can lead to sepsis. - Lab Data Result diagrams: 12/26/23 00:19 12/26/23 00:19 - Radiology Data Radiology results: report reviewed, image reviewed Disposition Clinical Impression: Dog bite, Open fracture of finger of left hand, Laceration Disposition: ADMITTED IP TO THIS [facility] Condition: Stable Time of Disposition: 23:50
--- NOTE | 2023-12-25 23:00 | XR ---
EXAMINATION TYPE: XR hand complete LT DATE OF EXAM: 12/25/2023 CLINICAL HISTORY: dog bite TECHNIQUE: Frontal, lateral and oblique images of the left hand are obtained. COMPARISON: The bony injury FINDINGS: There is acute comminuted displaced fracture through the proximal phalanx in the fourth di git of the left hand with associated moderate to severe soft tissue swelling. Several tiny fracture f ragments are seen. There is impaction and displacement of the largest distal fracture fragment. Flexi on and the fourth finger is present. Incidental severe degenerative change triscaphe joint. IMPRESSION: There is acute comminuted displaced fracture through the mid aspect of the fourth proxim al phalanx with associated soft tissue swelling.
[2023-12-25] MEDS ORDERED: NALOXONE 0.4 MG/ML 1 ML VIAL IV PRN (23:48)
[2023-12-25] MEDS ORDERED: ONDANSETRON 4 MG/2 ML VIAL IVP PRN (23:48)
[2023-12-26] MEDS: SODIUM CHLORIDE 0.9% 1,000 ML IV SCH (00:17)
[2023-12-26] MEDS: LIDOCAINE 1% INJ 10MG/ML (20 ML MDV) SQ ONE (00:23)
[2023-12-26] MEDS: ceFAZolin 1,000 MG VIAL (IM USE) IM STA (00:24)
[2023-12-26 00:41] LABS: Anisocytosis Slight; Basophils % (A) 0 %; Eosinophils % (A) 2 %; HCT 30.4 % (34.0-46.0); HGB 9.9 gm/dL (11.4-16.0); Hypochromasia Slight; Lymphocytes # (A) 0.4 k/uL (1.0-4.8); Lymphocytes % (A) 21 %; MCHC 32.5 g/dL (31.0-37.0); Macrocytosis Marked; Mean Platelet Volume 10.8; Monocytes # (A) 0.1 k/uL (0-1.0); Monocytes % (A) 4 %; Neutrophils # (A) 1.3 k/uL (1.3-7.7); Neutrophils % (A) 72 %; RBC 2.53 m/uL (3.80-5.40); RDW 16.6 % (11.5-15.5); WBC 1.9 k/uL (3.8-10.6)
[2023-12-26 00:58] LABS: INR 1.2 (<1.2); Partial Thromboplastin Time 27.2 sec (22.0-30.0); Prothrombin Time 13.1 sec (10.0-12.5)
[2023-12-26 00:59] LABS: ALT 19 U/L (4-34); AST 33 U/L (14-36); African American GFR (CKD) 75 (>60 ml/min/1.73 sqM); Albumin 3.9 g/dL (3.5-5.0); Alkaline Phosphatase 82 U/L (38-126); Anion Gap 7 mmol/L; Blood Urea Nitrogen 23 mg/dL (7-17); Calcium 8.8 mg/dL (8.4-10.2); Carbon Dioxide 23 mmol/L (22-30); Chloride 110 mmol/L (98-107); Glucose 127 mg/dL (74-99); Non-African American GFR(CKD) 65 (>60 ml/min/1.73 sqM); Potassium 4.4 mmol/L (3.5-5.1); Sodium 140 mmol/L (137-145); Total Bilirubin 1.7 mg/dL (0.2-1.3); Total Protein 6.2 g/dL (6.3-8.2)
[2023-12-26] MEDS: LIDOCAINE 1%-EPI 1:100,000 20 ML VIAL SQ STA (02:39)
[2023-12-26] MEDS: BACITRACIN OINT 1 EACH PACKET TOPICAL ONE (02:40)
[2023-12-26 04:55] LABS: Platelet Count 33 k/uL (150-450)
[2023-12-26] MEDS: HYDROmorphone 0.5 MG/0.5 ML SYRINGE IVP PRN (05:27)
--- NOTE | 2023-12-26 09:38 | XR ---
EXAMINATION TYPE: XR hand limited LT DATE OF EXAM: 12/26/2023 COMPARISON: 12/25/2023 HISTORY: Post reduction TECHNIQUE: 2 view left hand FINDINGS: There is a fracture of the proximal diaphyseal ring finger phalanx. There is displacement m edially of the distal fracture fragment. This has mild complete reduction. This appears improved on t he lateral view. IMPRESSION: 1. Incomplete reduction of the displaced proximal phalanx fracture ring finger. This is shifted grea ter than one shaft width medially in relation to the proximal fracture fragment.
--- NOTE | 2023-12-26 09:38 | P.HPOR ---
History of Present Illness H&P Date: 12/26/23 Chief Complaint: Dog Bite History of Presenting Illness Patient is a pleasant 68-year-old female who presented to the ER after a dog bite. Patient was brought in by family member via car. Patient reports that her daughter and family were outside of the home speaking with another couple at the time of the incident. Patient and her daughter's English Rabago were in the home. She states that the dog was excited and barking wanting to go outside and she attempted to turn the lights on in the house to assist with calming the animal. She states the event happened very quickly and has no idea what triggered the dog to jump and attack her. Patient does have past medical history of cirrhosis of the liver. She does have an orthopedic history of a femur fracture in 2019. Patient states that she did receive a tetanus vaccine at that time. She does report that the English [place] is not up-to-date on its vaccinations. Patient seen and examined in the ER. Patient did have irrigation of the wound with closure. Splint has been applied to the left ring finger and serena taped with middle and pinky fingers. She has been on IV cefazolin. X-ray of the left hand taken on 12/25/2023 demonstrates an acute comminuted displaced fracture through the mid aspect of the fourth proximal phalanx with associated soft tissue swelling. Review of Systems Pertinent positives and negatives as discussed in HPI, a complete review of systems was performed and all other systems are negative. Physical Examination Inspection: Splint has been applied to the left ring finger and serena taped with middle and pinky fingers with Coban. There is a small laceration to the left wrist, left middle finger that is sutured, a puncture wound on the left index finger. Laceration above the nipple of the left breast that is sutured. No active bleeding or drainage. Sensation: Sensation is equal, symmetric, bilaterally intact throughout the upper and lower extremities Palpation: Tender to palpation over the left hand. Range of motion: Limited range of motion of the left hand due to fracture and pain. Motor: 5/5 in all major motor groups in the bilateral upper and lower extremities, patient is unable to flex or extend left ring finger. Neurovascular: Radial pulse intact, 2+ bilaterally. Assessment and Plan Dog bite with trauma Acute comminuted displaced fracture mid aspect of the fourth proximal phalanx Laceration of the left breast Laceration of the left wrist Laceration of the middle finger Xrays of the left hand for post reduction have been reviewed. At this time we recommend patient to follow up with our hand surgeon, Dr. Paredes for further evaluation and to discuss surgical intervention. Patient to follow up in 1-2 days. She will be discharged home with oral antibiotics and pain medications. Please do not hesitate to contact us for any further questions. 2. Appreciate medical management 3. Pain management - Ice and elevate, no heat. Continue with tylenol or Ultram as needed. 4. Hygiene: Maintain laceration sites clean and dry. Keep splint in place until follow up with Dr. Paredes. I reviewed and discussed this case with my attending Dr. Sommer, whom has reviewed this chart and films and is in agreement with assessment and plan of ca re as outlined above. I have personally seen and examined the patient, performed the documentation and the assessment and plan as written. Number of minutes spent on the visit: 30m. Past Medical History Additional Past Medical History / Comment(s): cirrhosis of the liver 2014 History of Any Multi-Drug Resistant Organisms: None Reported Past Surgical History: Orthopedic Surgery Additional Past Surgical History / Comment(s): 2019 fx hip/femur Past Anesthesia/Blood Transfusion Reactions: No Reported Reaction Past Psychological History: No Psychological Hx Reported Smoking Status: Former smoker Past Alcohol Use History: Occasional Past Drug Use History: None Reported - Past Family History Father Additional Family Medical History / Comment(s): pt stated her father had lymphoma. Medications and Allergies Home Medications Medication Instructions Recorded Confirmed Type Furosemide [Lasix] 40 mg PO DAILY 12/16/21 12/26/23 History Magnesium Oxide [Mag-Ox] 400 mg PO DAILY 12/16/21 12/26/23 History Spironolactone 50 mg PO DAILY 12/16/21 12/26/23 History Ondansetron Odt [Zofran Odt] 4 mg PO Q8HR PRN 01/09/22 12/26/23 History Pantoprazole [Protonix] 40 mg PO DAILY 01/09/22 12/26/23 History Amoxic-Pot Clav 875-125Mg 1 tab PO Q12HR 1 Days #10 tab 12/26/23 Rx [Augmentin 875-125] Gabapentin [Neurontin] 100 mg PO TID 12/26/23 12/26/23 History methocarbamoL [Robaxin] 500 mg PO TID PRN 12/26/23 12/26/23 History traMADol HCL 50 mg PO Q4-6H PRN #30 tab 12/26/23 Rx ursodioL [Ursodiol] 600 mg PO BID 12/26/23 12/26/23 History Allergies Allergy/AdvReac Type Severity Reaction Status Date / Time No Known Allergies Allergy Verified 12/26/23 08:08 Results - Labs Labs: Abnormal Lab Results - Last 24 Hours (Table) 12/26/23 12/26/23 12/26/23 Range/Units 00:19 00:19 00:19 WBC 1.9 L (3.8-10.6) k/uL RBC 2.53 L (3.80-5.40) m/uL Hgb 9.9 L (11.4-16.0) gm/dL Hct 30.4 L (34.0-46.0) % MCV 120.0 H (80.0-100.0) fL MCH 39.0 H (25.0-35.0) pg RDW 16.6 H (11.5-15.5) % Plt Count 33 L (150-450) k/uL Lymphocytes # 0.4 L (1.0-4.8) k/uL Macrocytosis Marked A PT 13.1 H (10.0-12.5) sec INR 1.2 H (<1.2) Chloride 110 H (98-107) mmol/L BUN 23 H (7-17) mg/dL Glucose 127 H (74-99) mg/dL Total Bilirubin 1.7 H (0.2-1.3) mg/dL Total Protein 6.2 L (6.3-8.2) g/dL H & H 12/26/23 Range/Units 00:19 Hgb 9.9 L (11.4-16.0) gm/dL Hct 30.4 L (34.0-46.0) % Coagulation 12/26/23 Range/Units 00:19 INR 1.2 H (<1.2) Result Diagrams: 12/26/23 00:19 12/26/23 00:19
--- NOTE | 2023-12-26 09:44 | P.DS ---
Providers Date of admission: 12/25/23 23:49 Expected date of discharge: 12/26/23 Attending physician: Ollie Sommer DO Primary care physician: Pastora Lynch Hospital Course: Hospital Course: The patient was evaluated for a dog bite. Appropriate care provided and advanced imaging was obtained. Their pain was well controlled through their stay and they were started on appropriate medications. Daily labs were monitored closely. [facility] as well as other consulting services have made their input and have helped with our team approach and multidisciplinary care. The patient will be discharged home with appropriate medications, instructions and follow-up information and in stable condition. Patient Condition at Discharge: Good Plan - Discharge Summary New Discharge Prescriptions: New traMADol HCL 50 mg PO Q4-6H PRN #30 tab PRN Reason: Pain Amoxic-Pot Clav 875-125Mg [Augmentin 875-125] 1 tab PO Q12HR 1 Days #10 tab No Action Ondansetron Odt [Zofran Odt] 4 mg PO Q8HR PRN PRN Reason: Nausea methocarbamoL [Robaxin] 500 mg PO TID PRN PRN Reason: Muscle Spasm Furosemide [Lasix] 40 mg PO DAILY Spironolactone 50 mg PO DAILY Magnesium Oxide [Mag-Ox] 400 mg PO DAILY Pantoprazole [Protonix] 40 mg PO DAILY Gabapentin [Neurontin] 100 mg PO TID ursodioL [Ursodiol] 600 mg PO BID Discharge Medication List Furosemide [Lasix] 40 mg PO DAILY 12/16/21 [History] Magnesium Oxide [Mag-Ox] 400 mg PO DAILY 12/16/21 [History] Spironolactone 50 mg PO DAILY 12/16/21 [History] Ondansetron Odt [Zofran Odt] 4 mg PO Q8HR PRN 01/09/22 [History] Pantoprazole [Protonix] 40 mg PO DAILY 01/09/22 [History] Amoxic-Pot Clav 875-125Mg [Augmentin 875-125] 1 tab PO Q12HR 1 Days #10 tab 12/09 01/01 [Rx] Gabapentin [Neurontin] 100 mg PO TID 12/26/23 [History] methocarbamoL [Robaxin] 500 mg PO TID PRN 12/26/23 [History] traMADol HCL 50 mg PO Q4-6H PRN #30 tab 12/26/23 [Rx] ursodioL [Ursodiol] 600 mg PO BID 12/26/23 [History] Follow up Appointment(s)/Referral(s): Pastora Lynch MD [Primary Care Provider] - 1-2 days Vish Paredes DO [Doctor of Osteopathic Medicine] - 1-2 Days Patient Instructions/Handouts: Animal Bite (ED) Discharge Disposition: HOME SELF-CARE
[2023-12-26 12:39] VITALS: BP 126/68; PULSE 66; TEMP 98.1
== END 2023-12-26 12:39 | disposition home or self-care (01) ==
LOC: EC 22:23 → 4SSUR 23:49
PROVIDERS: ADMIT Orthopaedic Surgery; ATTEND Orthopaedic Surgery
DX: S62.615A Displaced fracture of proximal phalanx of left ring finger, initial encounter for closed fracture (principal); S61.552A Open bite of left wrist, initial encounter; S61.253A Open bite of left middle finger without damage to nail, initial encounter; S21.052A Open bite of left breast, initial encounter; S61.255A Open bite of left ring finger without damage to nail, initial encounter; W54.0XXA Bitten by dog, initial encounter; Z87.891 Personal history of nicotine dependence; Z79.899 Other long term (current) drug therapy
CPT/HCPCS: 26725; 96376; 12004; 96361; 96365; 96366; 96375; 99285; 86900; 86901; 80053; 85025; 85610; 85730; 86850; 86870; 86880; 73120; 73130; G0378 ×2; J0690; J2001; J1170

== ENCOUNTER → 2024-08-15 | Outpatient (CLI) | payer MEDICARE, BC ==
[2024-08-15 08:16] LABS: African American GFR (CKD) 89 (>60 ml/min/1.73 sqM); Blood Urea Nitrogen 24 mg/dL (7-17); Non-African American GFR(CKD) 77 (>60 ml/min/1.73 sqM)
--- NOTE | 2024-08-15 09:35 | CT ---
EXAMINATION TYPE: CT abdomen wo/w con DATE OF EXAM: 08/15/2024 COMPARISON: CT abdomen and pelvis December 16, 2021 CLINICAL INDICATION: Female, 69 years old with history of N28.1 CYST OF KIDNEY, ACQUIRED; [facility], KIDNEY CYST TECHNIQUE: Performed with Oral Contrast and without and with IV Contrast, patient injected with 100 mL of Isovue 300. CT DLP: 1019.2 mGycm Automated exposure control for dose reduction was used. FINDINGS: LUNG BASES: Small right pleural effusion slightly larger versus prior. LIVER/GB: Several tiny internal gallstones redemonstrated. Noncontrast Images show geographic area of diminished signal consistent with areas of focal fatty infiltration. Liver remains normal in size wi th lobulated peripheral contour. No new biliary dilatation. Prominent but patent main portal vein at 2.0 cm coronal image 42. PANCREAS: No significant abnormality is seen. SPLEEN: More prominent splenomegaly measuring 22.1 cm long axis coronal image 51. Enlarged tortuous s plenic vein redemonstrated ADRENALS: No significant abnormality is seen. KIDNEYS: Persistent 5.8 cm thin-walled cyst partially exophytic from the right kidney with thin septa and part peripheral thin calcified rim. No suspicious solid nodularity or thickened septa. Left kidn ey now deviated anteriorly due to increasing splenomegaly with 1.0 cm simple thin-walled cyst posteri rajeev axial image 37 series 9. BOWEL: No significant abnormality is seen. LYMPH NODES: Persistent mild mesenteric edema with prominent but subcentimeter mesenteric lymph node s. OSSEOUS STRUCTURES: Some height loss involving the superior L3-L5 endplates is redemonstrated. FREE AIR: No free air is visualized. OTHER: None. IMPRESSION: 1. CIRRHOSIS WITH EVIDENCE OF PORTAL VENOUS HYPERTENSION REDEMONSTRATED. NO NEW ASCITES. SLIGHTLY INC REASED IN SIZE SMALL RIGHT PLEURAL EFFUSION PARTIALLY IMAGED. 2. FAIRLY STABLE 5.8 CM THIN-WALLED CYST IN THE RIGHT KIDNEY, BOSNIAK 2 LESION. [facility], , 08/15/2024 9:33 AM
== END | disposition home or self-care (01) ==
LOC: RADCTMAIN 07:41
PROVIDERS: ATTEND Urology
DX: N28.1 Cyst of kidney, acquired (principal); K76.6 Portal hypertension; K74.60 Unspecified cirrhosis of liver; J90 Pleural effusion, not elsewhere classified
CPT/HCPCS: 82565; 84520; 74170; 36415; Q9967